=== PATIENT | female | born 1940 | race Caucasian/White ===

== ENCOUNTER 2024-06-23 15:11 | Inpatient (IN) | payer OTHER, SELFPAY ==
[2024-06-23] VITALS (14 sets, daily range): BP systolic 109–178; BP diastolic 58–127; BMI 22.3; BMI 23.1
[2024-06-23 09:11] LABS: ALT (SGPT) 14 U/L (0-35); AST (SGOT) 18 U/L (14-36); Albumin 4.1 g/dl (3.5-5.0); Alkaline Phosphatase 112 U/L (38-126); Blood Urea Nitrogen 36 mg/dl (7-17); Carbon Dioxide 21 mmol/L (22-30); Chloride 104 mmol/L (98-107); Estimated Creatinine Clearance 13 ml/min; Glucose 119 mg/dl (70-99); Potassium 4.2 mmol/L (3.5-5.1); Sodium 139 mmol/L (135-145); Total Bilirubin 0.5 mg/dl (0.2-1.3); Total Protein 7.5 g/dl (6.3-8.2); eGFR 22.81
--- NOTE | 2024-06-23 09:12 | ED.GENMED ---
History of Present Illness
General
Chief Complaint: Rectal Bleeding
Source: patient and family
Exam Limitations: none
Time Seen by Provider: 06/23/24 08:52
History of Present Illness
History of Present Illness:
84-year-old female 1 week of general weakness abdominal pain diarrhea. Started with bloody diarrhea in the last 24 hours. No recent antibiotics no travel history no one else is ill. Appetite has been reasonable. Chronic shortness of breath that
is stable. No fever at home. No urinary symptoms at home.
Past History
Past History
ED Past Medical History: COPD, HTN and Hypercholesterolemia
ED Past Surgical History: Gynecological (Hysterectomy) and Urological (Renal stents)
Social History
Tobacco: Former smoker
Alcohol: None
Drug: None
Personal:
Living: with family
Review of Systems
Review of Systems
All Other Systems: Not applicable
Constitutional: Denies fever
Respiratory: Reports no symptoms (Chronic shortness of breath)
Cardiac: Reports no symptoms
: Reports no symptoms
Phy Exam
Physical Exam
Physical Exam:
GENERAL: Alert and oriented. Very hard of hearing. Generally weak.
EYE: Orbits normal.
NECK: Supple, no significant adenopathy.
ENT: Pharynx without erythema
CARDIAC: Regular rate and rhythm without any obvious murmurs.
LUNGS: Mild tachypnea. Decreased breath sounds diffusely. Oxygen in place. Chronic 5 L nasal cannula
ABDOMEN: Bowel sounds present. No distention. Vertical periumbilical scar. Diffuse tenderness greatest in left upper and left lower quadrants
NEUROLOGICAL: Alert and oriented , grossly non-focal
SKIN: Warm and dry, no rash or lesion, no discoloration, skin intact.
MUSCULOSKELETAL: No edema,no deformity.Good color
PSYCH: Normal and appropriate interaction.
Course
Orders/Labs/Results
Orders:
Orders
06/23/24 08:39
Electrocardiogram (*1) Urgent
Reason for Study: Chest Pain
06/23/24 08:42
EKG- Treatment ONCE
06/23/24 08:43
Complete Blood Count/With Diff Urgent
Comprehensive Metabolic Panel Urgent
Lipase Urgent
Comment: ADD ON
06/23/24 09:00
Cardiac Monitoring- Treatment ONCE
IV Insert/Care/Rem.- Treatment PRN
STOOL [C difficile Antigen & Toxins] Urgent
KAMILAH Source: Feces/Stool
Specimen Description:
Stool Culture Urgent
KAMILAH Source: Feces/Stool
Specimen Description:
0.9% Sodium Chloride 500 ml [Nss] 500 ml IV BOLUS
CXR2 [CR Chest - 2 Views ] Urgent
Comment:
Reason For Exam: Short of breath/abdominal pain
06/23/24 09:02
Add On- LAB Urgent
Tests Added?: lipase
06/23/24 09:12
CT Abd/pel Without Iv Or Oral Urgent
Comment:
Reason For Exam: Abdominal pain/diarrhea/renal disease
06/23/24 10:09
Piperacillin/Tazo 3.375 Gram [Zosyn] 3.375 gram in 50 ml IV NOW
06/23/24 10:38
Lactic Acid Urgent
Blood Culture Q30M
KAMILAH Source: Blood/Venous
Specimen Description:
Blood Culture Q30M
KAMILAH Source: Blood/Venous
Specimen Description:
06/23/24 10:40
Acetaminophen 1000MG/100Ml [Ofirmev] 1,000 mg in 100 ml IV ONCE
Acetaminophen IV Indication:: ED Narcotic Naive Pt-ONCE
06/23/24 11:03
CDIFF [C difficile Antigen & Toxins] Urgent
KAMILAH Source: Feces/Stool
Specimen Description:
Norovirus by PCR Routine
KAMILAH Source: Feces/Stool
Specimen Description:
Stool For WBC Routine
KAMILAH Source: Feces/Stool
Specimen Description:
Yersinia Culture-Stool Routine
KAMILAH Source: Feces/Stool
Specimen Description:
Abnormal Lab Results
06/23/24
08:43
WBC 12.6 H 10^3/uL
(4.8-10.8)
RBC 4.06 L 10^6/uL
(4.20-5.40)
Hgb 11.0 L g/dL
(12.0-16.0)
Hct 36.4 L %
(37.0-47.0)
MCHC 30.2 L g/dL
(33.0-37.0)
MPV 11.9 H fL
(7.4-10.4)
Absolute Neuts (auto) 10.7 H 10^3/uL
(1.4-6.5)
Neutrophils % 84.9 H %
(42.2-75.2)
Lymphocytes % 9.8 L %
(20.5-51.1)
Carbon Dioxide 21 L mmol/L
(22-30)
BUN 36 H mg/dl
(7-17)
Creatinine 2.1 H mg/dL
(0.6-1.0)
Glucose 119 H mg/dl
(70-99)
06/23/24 08:43
06/23/24 08:43
Vital Signs
Initial and Last Documented VS:
Initial Vital Signs
Temp Pulse Resp BP Pulse Ox
99.5 F 100 22 178/127 98
06/23/24 08:27 06/23/24 08:27 06/23/24 08:27 06/23/24 08:27 06/23/24 08:27
Last Documented Vital Signs
Temp Pulse Resp BP Pulse Ox
100.8 F H 74 15 134/61 98
06/23/24 10:15 06/23/24 12:00 06/23/24 12:00 06/23/24 12:00 06/23/24 11:45
MDM/Problems Addressed
Differential Diagnosis Includes:
Abdominal pain colitis like symptoms workup in progress. With renal insufficiency will not give IV contrast.
Colitis by CT scan. Infectious versus inflammatory versus ischemic. Reluctant to do a CT scan with the renal insufficiency and low GFR. Will do a lactic acid. Cover with antibiotics. Referred to hospitalist
*Radiology
Radiology exam reviewed: radiology read reviewed (Severe colitis) and other (Negative chest x-ray)
*Pulse Oximetry
Patient hypoxic: no
*EKG
Interpreted by ED Provider?: Yes
Interpretation: normal
Comparison EKG: no comparison EKG present
Heart Rate: 95
Rate: normal
Rhythm: sinus
[place]: normal axis
Interval: normal interval
QRS Pattern: normal QRS
Ischemia: no ischemia
*Caregivers Non Medical Interpretation
Rate: normal
Interpretation: normal
Heart Rate: 88
Rhythm: sinus
*Critical Care Note
Total Time (30-74mins, 75-104mins- exclusive of procedures): Not Applicable
Data Reviewed
Review of Other/Old Records Reveals: Labs, Records and Testing
ED Attending Note
-
Portions of this chart may have been created with voice recognition software.� Occasional wrong word or��sound alike� substitutions may have occurred due to the inherent limitations of voice recognition software.
Discharge Plan
Departure
Patient Disposition: Admit
Date of Disposition: 06/23/24
Time of Disposition: 10:11
Presentation/result/management discussed w/ accepting MD/DO: Hospitalist
Discharge Problem:
Severe colitis, COPD history
Prescriptions:
No Action
alendronate [Fosamax] 70 mg Tablet
70 mg PO MO
clopidogrel [Plavix] 75 mg Tablet
75 mg PO DAILY
aspirin 81 mg Tablet,Delayed Release (Dr/Ec)
81 mg PO QPM
nifedipine 90 mg tablet extended release 24hr
90 mg PO DAILY
ropinirole 0.5 mg Tablet
0.5 mg PO HSPRN PRN (Reason: rts)
ezetimibe [Zetia] 10 mg Tablet
10 mg PO QPM
metoprolol succinate [Toprol XL] 25 mg Tablet Extended Release 24 Hr
25 mg PO HS
Referrals:
Barb Aguirre MD [Family Provider] -
Interventions
Interventions:
*Risk Screen - Suicide Last Done: 06/23/24 08:27
*General Assessment Last Done: 06/23/24 08:27
*Neglect/Abuse Screening Last Done: 06/23/24 08:27
*ED COVID-19 Vaccine History Last Done: 06/23/24 08:38
GQ-Gksoop-Akybaoudkp Assessment Last Done: 06/23/24 08:30
ED- Cardiac Assessment Last Done: 06/23/24 08:30
ED- Pulmonary Assessment Last Done: 06/23/24 08:30
Discharge Date and Time
Print Language: AMHARIC
[2024-06-23 09:38] LABS: Lipase 71 U/L (23-300)
[2024-06-23] MEDS: NSS 500 IV (10:43)
[2024-06-23] MEDS: OFIRMEV 100 IV (10:43)
[2024-06-23 11:03] LABS: Lactic Acid 0.9 mmol/L (0.7-2.0)
[2024-06-23] MEDS: ZOSYN 50 IV ×2 (11:27→19:15)
[2024-06-23 11:48] LABS: % Basophils 0.3 % (0-2); % Eosinophils 0.5 % (0-6); % Immature Granulocytes 0.2 % (0-0.5); % Lymphocytes 9.8 % (20.5-51.1); % Monocytes 4.3 % (1.7-9.3); % Neutrophils 84.9 % (42.2-75.2); Absolute Eosinophils 0.1 10^3/uL (0-0.7); Absolute Lymphocytes 1.2 10^3/uL (1.2-3.4); Absolute Monocytes 0.5 10^3/uL (0.1-0.6); Absolute Neutrophils 10.7 10^3/uL (1.4-6.5); Hematocrit 36.4 % (37.0-47.0); Mean Corp Hgb Conc. 30.2 g/dL (33.0-37.0); Mean Corpuscular Hgb 27.1 pg (27.0-31.0); Mean Corpuscular Volume 89.7 fL (81.0-99.0); Mean Platelet Volume 11.9 fL (7.4-10.4); Nucleated Red Blood Cells % 0 %; Platelet Count 237 10^3/uL (130-400); Red Blood Cell Count 4.06 10^6/uL (4.20-5.40); Red Cell Dist. Width 14.3 % (11.5-14.5); White Blood Cell Count 12.6 10^3/uL (4.8-10.8)
--- NOTE | 2024-06-23 14:03 | CON.GI ---
Consultation
-
Date/Time Consultation Requested: 06/23/2024
Date/Time Consultation Performed: 06/23
Requesting Provider: Hospitalist
Performing Provider: Faye PRIETO
Reason for Consultation: Colitis
Medical History
Chief Complaint / HPI
Chief Complaint: Abdominal pain/diarrhea
History of Present Illness:
84-year-old female with history of COPD on oxygen, hypertension, rectal prolapse is admitted today with abdominal pain with bloody diarrhea for 1 day. Patient daughter was at bedside . Complaining of left lower quadrant abdominal pain. No pain
radiation. She started having multiple loose stools with blood . No sick contacts or travel history. Denies any nausea or vomiting. No fever or chills.
Past Medical History
Past Medical History: Other (COPD (on 4L NC), HTN, Hypercholesterolemia and Other (Rectal prolapse, Renal artery stenosis, osteoporosis), dyslipidemia, rectal prolapse)
Past Surgical History: Other ((hysterctomy, bladder lift, renal stents))
Social History
Tobacco: Non-Smoker
Alcohol: None
Allergies / Home Medications
Allergy/AdvReac Type Severity Reaction Status Date / Time
No Known Allergies Allergy Verified 06/23/24 08:27
�Medication �Instructions �Recorded
alendronate 70 mg tablet (Fosamax) 70 mg PO MO osteoporosis 09/02/22
aspirin 81 mg tablet,delayed 81 mg PO QPM Blood clot 09/02/22
release prevention/tx
clopidogrel 75 mg tablet (Plavix) 75 mg PO DAILY Blood clot 09/02/22
prevention/tx
ezetimibe 10 mg tablet (Zetia) 10 mg PO QPM High cholesterol 09/02/22
nifedipine 90 mg tablet,extended 90 mg PO DAILY Blood pressure 09/02/22
release 24 hr
ropinirole 0.5 mg tablet 0.5 mg PO HSPRN PRN rts 09/02/22
metoprolol succinate 25 mg 25 mg PO HS 06/23/24
tablet,extended release 24 hr
(Toprol XL)
Review of Systems
Vital Signs
Temp Pulse Resp BP Pulse Ox
100.8 F H 74 15 134/61 98
06/23/24 10:15 06/23/24 12:00 06/23/24 12:00 06/23/24 12:00 06/23/24 11:45
Physical Exam
Exam
General: Well Developed and No Apparent Distress
Cardiac: S1/S2
GI: Soft, Non Distended and Tender (Left lower quadrant tenderness)
Neuro: AO x 3
Results
WBC 12.6 10^3/uL (4.8-10.8) H 06/23/24 08:43
Hgb 11.0 g/dL (12.0-16.0) L 06/23/24 08:43
Hct 36.4 % (37.0-47.0) L 06/23/24 08:43
MCV 89.7 fL (81.0-99.0) 06/23/24 08:43
Plt Count 237 10^3/uL (130-400) 06/23/24 08:43
Absolute Neuts (auto) 10.7 10^3/uL (1.4-6.5) H 06/23/24 08:43
Sodium 139 mmol/L (135-145) 06/23/24 08:43
Potassium 4.2 mmol/L (3.5-5.1) 06/23/24 08:43
Chloride 104 mmol/L (98-107) 06/23/24 08:43
Carbon Dioxide 21 mmol/L (22-30) L 06/23/24 08:43
BUN 36 mg/dl (7-17) H 06/23/24 08:43
Creatinine 2.1 mg/dL (0.6-1.0) H 06/23/24 08:43
Calcium 9.0 mg/dl (8.4-10.2) 06/23/24 08:43
Total Bilirubin 0.5 mg/dl (0.2-1.3) 06/23/24 08:43
AST 18 U/L (14-36) 06/23/24 08:43
ALT 14 U/L (0-35) 06/23/24 08:43
Alkaline Phosphatase 112 U/L (38-126) 06/23/24 08:43
Lipase 71 U/L (23-300) 06/23/24 08:43
Diagnostic Image Results:
Prior GI Procedures:
EGD:
Colonoscopy: Over 10 years back.
Assessment / Plan
-
84-year-old female with history of COPD on oxygen, hypertension, dyslipidemia, large rectal prolapse ( not a surgical candidate as per patient's daughter ) is admitted with left sided abdominal pain/bloody diarrhea. ED labs�WBC 12.6/Hb 11/platelets
237. Lactic acid 0.9. Liver test normal. BUN 36/serum creatinine 2.1
CT abdomen/pelvis without contrast- Moderate to severe colitis of the descending colon, which may be infectious, inflammatory, or ischemic..
-- Abdominal pain/bloody diarrhea/CT showing colitis in the descending colon -etiology infectious versus ischemic versus inflammatory. Last colonoscopy over 10 years back. Had colitis 08/2022-thought to be infectious at that time
plan
Check stool studies for infection
Continue antibiotic started by medical team
Monitor H&H
Hemodynamic stability
Clear liquid diet
Discussed benefits and risk of colonoscopy in the future. Patient/patient daughter would like to hold off on it considering her age/comorbidities.
Total Time Spent with Patient (in minutes): 55
-
-
Thank you for consultation and allowing me to participate in the patient's care. Please call the distribution coordinator GI physician during the after hours with any questions or concerns.
--- NOTE | 2024-06-23 14:32 | HPS.HSE ---
Family Physician
-
Family Physician: Barb Aguirre
Chief Complaint
-
Bloody diarrhea
History of Present Illness
84-year-old female past medical history of COPD on 4 L nasal cannula, hypertension, hyperlipidemia, rectal prolapse, renal artery stenosis, osteoporosis, renal stents now presents for abdominal pain associated with bloody diarrhea. Patient had 1
week of generalized weakness with abdominal pain and diarrhea. Started to become bloody over the last 24 hours. Also complains of left lower quadrant abdominal pain. No sick contacts or travel history. Noted to spike temperature of 100.8
Fahrenheit, respiratory rate 23 upon arrival, pulse 90, blood pressure 134/61. White count 12.6, CORNELIA with creatinine 2.1 from baseline 1.5. LFTs unremarkable. CT abdomen with moderate to severe colitis of descending colon.
Medical History
Past Medical History
Past Medical History: Reports Other (COPD on 4 L baseline, rectal prolapse, coronary artery disease, hypertension, hypercholesterolemia, carotid artery disease)
Past Surgical History: Reports Other (Gynecological (Hysterectomy) and Urological (Renal stents))
Social History
Tobacco: Non-smoker
Alcohol: None
Drug: None
Family History
Family History: Not pertinent
Allergies / Home Medications
Allergies reflects when Allergies were last updated in [facility].
Home Medications with original date entered in [facility]
Allergy/Medication List:
Allergies
Allergy/AdvReac Type Severity Reaction Status Date / Time
No Known Allergies Allergy Verified 06/23/24 08:27
Home Medications
alendronate 70 mg tablet (Fosamax) 70 mg PO MO osteoporosis 09/02/22
aspirin 81 mg tablet,delayed release 81 mg PO QPM Blood clot prevention/tx 09/02/22
clopidogrel 75 mg tablet (Plavix) 75 mg PO DAILY Blood clot prevention/tx 09/02/22
ezetimibe 10 mg tablet (Zetia) 10 mg PO QPM High cholesterol 09/02/22
nifedipine 90 mg tablet,extended release 24 hr 90 mg PO DAILY Blood pressure 09/02/22
ropinirole 0.5 mg tablet 0.5 mg PO HSPRN PRN rts 09/02/22
metoprolol succinate 25 mg tablet,extended release 24 hr (Toprol XL) 25 mg PO HS 06/23/24
Review of Systems
-
History Source: Patient
A 12 point ROS was completed and negative except as noted: Yes
Physical Exam
Vital Signs
Vital Signs
Temp Pulse Resp BP Pulse Ox
100.8 F H 74 15 134/61 98
06/23/24 10:15 06/23/24 12:00 06/23/24 12:00 06/23/24 12:00 06/23/24 11:45
Physical Exam
General: Well Developed, Well Nourished and No Apparent Distress
HEENT: NormoCephalic, Moist mucous membranes and Atraumatic
Respiratory: Clear
Cardiac: S1/S2 and Regular Rhythm; No Murmur or Rub
GI: Soft, Non Distended, Normal Bowel Sounds and Tender (Left lower quadrant); No Organomegaly
Rectal: Deferred by Provider
Musculoskeletal: No Clubbing, No Cyanosis and No Edema
Skin: No Rash
Neuro: Nonfocal/grossly intact
Laboratory Results
-
06/23/24 08:43
06/23/24 08:43
Laboratory Results
Lactic Acid 0.9 mmol/L (0.7-2.0) 06/23/24 10:38
Total Bilirubin 0.5 mg/dl (0.2-1.3) 06/23/24 08:43
AST 18 U/L (14-36) 06/23/24 08:43
ALT 14 U/L (0-35) 06/23/24 08:43
Alkaline Phosphatase 112 U/L (38-126) 06/23/24 08:43
Lipase 71 U/L (23-300) 06/23/24 08:43
Data Reviewed
-
Diagnostic Radiology: Report Reviewed by me
CT Scan: Report Reviewed by me
Lab Data: Labs Reviewed by me
Impression/Plan
-
IMPRESSION:
84-year-old female past medical history of COPD on 4 L nasal cannula, hypertension, hyperlipidemia, rectal prolapse, renal artery stenosis, osteoporosis, renal stents now presents for abdominal pain associated with bloody diarrhea. Found to have
moderate to severe colitis.
PLAN:
Sepsis
#Colitis
� Follow-up stool studies including C. difficile, stool cultures, Yersinia
� Continue Zosyn
� Follow-up cultures including blood
� Okay for clear liquid diet for now
� Monitor hemoglobin, no obvious acute blood loss anemia this time; blood and diarrhea most likely secondary to inflammation
� GI consulted
#CORNELIA on CKD stage IIIb
� Creatinine 1.5 at baseline
� Continue IV fluids
� Monitor with resuscitation
#Coronary disease
#History of carotid disease
� Continue aspirin and Plavix for now
� Can hold Plavix if hemoglobin continues to drop or recurrent bloody bowel movements
� No active chest pain
� Continue Toprol
#Hypertension
� Hold nifedipine
� Can continue Toprol, low threshold to stop
#Anemia of chronic disease
� Continue to monitor hemoglobin for possible acute blood loss anemia
#COPD/ chronic hypoxic respiratory failure
-On 4 L of oxygen at baseline
#Hyperlipidemia
� Hold Zetia
#Restless legs
-Continue ropinirole, gabapentin
#Osteoporosis
-Continue alendronate
#Rectal plus/
� Nonsurgical candidate as per history
Full code
DVT ppx
-scd
[2024-06-23] MEDS: ASPIR LOW (ENTERIC COATED) 81 MG PO (19:13)
[2024-06-23] MEDS: PLAVIX PO (19:13)
[2024-06-23] MEDS: LR 1000 IV (19:33)
[2024-06-23] MEDS: NSS (PRESERVATIVE FREE) 10 ML IV (20:36)
[2024-06-23] MEDS: PROTONIX IV 40 MG IV (20:36)
[2024-06-23] MEDS: TOPROL XL 25 MG PO (20:37)
--- NOTE | 2024-06-23 21:15 | PTCARENOTE ---
ax3 very [place]- ambulates with walker at home- pt and daughter refuse bed alarm despite fall risk and assure staff that she will ring for all assistance- sinus pac's afebrile bp wnl- smear of red blood tinged bm not enough for sample- plan of care
reviewed-
[2024-06-23 23:21] LABS: Hematocrit 31.9 % (37.0-47.0); Hemoglobin 9.9 g/dL (12.0-16.0)
[2024-06-24] VITALS (8 sets, daily range): BP systolic 140–174; BP diastolic 50–86; PULSE 72; O2SAT 98
[2024-06-24] MEDS: ZOSYN 50 IV ×5 (01:10→23:31)
[2024-06-24 06:05] LABS: Hematocrit 27.4 % (37.0-47.0); Hemoglobin 8.4 g/dL (12.0-16.0); Mean Corp Hgb Conc. 30.7 g/dL (33.0-37.0); Mean Corpuscular Hgb 27.3 pg (27.0-31.0); Mean Platelet Volume 11.2 fL (7.4-10.4); Platelet Count 152 10^3/uL (130-400); Red Blood Cell Count 3.08 10^6/uL (4.20-5.40); Red Cell Dist. Width 14.1 % (11.5-14.5); White Blood Cell Count 8.4 10^3/uL (4.8-10.8)
[2024-06-24 06:37] LABS: ALT (SGPT) 11 U/L (0-35); AST (SGOT) 19 U/L (14-36); Albumin 3.1 g/dl (3.5-5.0); Alkaline Phosphatase 89 U/L (38-126); Blood Urea Nitrogen 27 mg/dl (7-17); Calcium 8.4 mg/dl (8.4-10.2); Carbon Dioxide 24 mmol/L (22-30); Chloride 107 mmol/L (98-107); Estimated Creatinine Clearance 13 ml/min; Glucose 91 mg/dl (70-99); Magnesium 1.9 mg/dl (1.6-2.3); Potassium 3.9 mmol/L (3.5-5.1); Sodium 137 mmol/L (135-145); Total Bilirubin 0.8 mg/dl (0.2-1.3); Total Protein 5.8 g/dl (6.3-8.2); eGFR 24.18
[2024-06-24] MEDS: PLAVIX 75 MG PO (08:01)
[2024-06-24] MEDS: PROTONIX IV 40 MG IV ×2 (08:01→19:48)
[2024-06-24] MEDS: NSS (PRESERVATIVE FREE) 10 ML IV ×2 (08:01→19:48)
[2024-06-24] MEDS: LR 1000 IV ×2 (08:07→22:22)
--- NOTE | 2024-06-24 12:21 | W.PN.GI.CBS2 ---
Today's Communication / Plan
-
Continue clear liquid diet
Continue antibiotics
Follow-up stool studies
Assessment / Plan
-
84-year-old female with history of COPD on oxygen, hypertension, dyslipidemia, large rectal prolapse ( not a surgical candidate as per patient's daughter ) is admitted with left sided abdominal pain/bloody diarrhea. ED labs�WBC 12.6/Hb 11/platelets
237. Lactic acid 0.9. Liver test normal. BUN 36/serum creatinine 2.1
CT abdomen/pelvis without contrast- Moderate to severe colitis of the descending colon, which may be infectious, inflammatory, or ischemic..
-- Abdominal pain/bloody diarrhea/CT showing colitis in the descending colon -etiology infectious versus ischemic versus inflammatory. Last colonoscopy over 10 years back. Had colitis 08/2022-thought to be infectious at that time
-- Coronary artery disease/carotid artery disease on Plavix
plan
No further diarrhea as per nursing. Stool for C. difficile pending
Continue antibiotic started by medical team
Monitor H&H. If bleeding persists hold off on Plavix
Hemodynamic stability
Clear liquid diet for now
Discussed benefits and risk of colonoscopy in the future. Patient/patient daughter would like to hold off on it considering her age/comorbidities.
Total Time Spent with Patient (in minutes): 35
Subjective
Subjective
Date of Service: June 24, 2024
Patient continues to have abdominal pain. As per nursing no diarrhea. Smears of stool.
Objective
Data Reviewed
Laboratory Data:
Laboratory Results
06/24/24 05:53
06/24/24 05:53
Laboratory Results
Magnesium 1.9 mg/dl (1.6-2.3) 06/24/24 05:53
Total Bilirubin 0.8 mg/dl (0.2-1.3) 06/24/24 05:53
AST 19 U/L (14-36) 06/24/24 05:53
ALT 11 U/L (0-35) 06/24/24 05:53
Alkaline Phosphatase 89 U/L (38-126) 06/24/24 05:53
Lipase 71 U/L (23-300) 06/23/24 08:43
Vital Signs and I&O:
Vital Signs
Temp Pulse Resp BP Pulse Ox
98.2 F 76 24 155/64 98
06/24/24 11:06 06/24/24 11:06 06/24/24 11:06 06/24/24 11:06 06/24/24 11:06
I&O
06/23/24 06/24/24 06/25/24
06:59 06:59 06:59
Intake Total 1140 / 1140
Balance 1140 / 1140
Physical Exam
Physical Exam
GI: Soft, Non Distended and Tender (Left lower quadrant tenderness)
--- NOTE | 2024-06-24 12:43 | W.PN.HOSP.TC ---
Today's Communication/Plan
-
CLD
abx
F/u cultures
restart nifedipine
Assessment / Plan
Assessment / Plan
Physical Exam
General: Well Developed, Well Nourished and No Apparent Distress
HEENT: NormoCephalic, Moist mucous membranes and Atraumatic
Respiratory: Clear
Cardiac: S1/S2 and Regular Rhythm; No Murmur or Rub
GI: Soft, Non Distended, Normal Bowel Sounds and Tender (Left lower quadrant); No Organomegaly
Rectal: Deferred by Provider
Musculoskeletal: No Clubbing, No Cyanosis and No Edema
Skin: No Rash
Neuro: Nonfocal/grossly intact
84-year-old female past medical history of COPD on 4 L nasal cannula, hypertension, hyperlipidemia, rectal prolapse, renal artery stenosis, osteoporosis, renal stents now presents for abdominal pain associated with bloody diarrhea. Found to have
moderate to severe colitis.
PLAN:
Sepsis
#Colitis
� Follow-up stool studies including C. difficile, stool cultures, Yersinia
� Continue Zosyn
� Follow-up cultures including blood
� Okay for clear liquid diet for now
� Monitor hemoglobin, no obvious acute blood loss anemia this time; blood and diarrhea most likely secondary to inflammation
� GI consulted
#CORNELIA on CKD stage IIIb
� Creatinine 1.5 at baseline
� Continue IV fluids
� Monitor with resuscitation
#Coronary disease
#History of carotid disease
� Continue aspirin and Plavix for now
� Can hold Plavix if hemoglobin continues to drop
� No active chest pain
� Continue Toprol
#Hypertension
� Can resume nifedipine
� Can continue Toprol
#Anemia of chronic disease
� Continue to monitor hemoglobin for possible acute blood loss anemia
#COPD/ chronic hypoxic respiratory failure
-On 4 L of oxygen at baseline
#Hyperlipidemia
� Hold Zetia
#Restless legs
-Continue ropinirole, gabapentin
#Osteoporosis
-Continue alendronate
#Rectal plus/
� Nonsurgical candidate as per history
Full code
DVT ppx
-scd
Anticipated Discharge: 24 - 48 hours
Subjective/Interval History
-
Date of Service: June 24, 2024
slight improvement in tenderness, still with diarrhea with soome blood
Objective Data
-
Labs:
Laboratory Results
06/24/24 06/24/24 06/24/24
05:53 05:53 05:53
WBC 8.4
Hgb Cancelled 8.4 L
Hct Cancelled 27.4 L
Plt Count 152 D
Sodium 137
Potassium 3.9
Chloride 107
Carbon Dioxide 24
BUN 27 H
Creatinine 2.0 H
Glucose 91
Calcium 8.4
Total Bilirubin 0.8
AST 19
ALT 11
Alkaline Phosphatase 89
Vital Signs:
Vital Signs
Temp Pulse Resp BP Pulse Ox
98.2 F 76 24 155/64 98
06/24/24 11:06 06/24/24 11:06 06/24/24 11:06 06/24/24 11:06 06/24/24 11:06
I&O
06/23/24 06/24/24 06/25/24
06:59 06:59 06:59
Intake Total 1140 / 1140
Balance 1140 / 1140
Review of Systems
-
History Source: Patient
All other systems: Not reviewed unless documented
Data Reviewed
-
Diagnostic Radiology: Report Reviewed by me
CT Scan: Report Reviewed by me
Labs: Labs Reviewed by me
--- NOTE | 2024-06-24 15:17 | CM ---
Addendum entered by Lucia Hedrick 06/24/24 15:48:
Call back from dtr who confirmed PLOF
O2 provider unknown- possibly [facility], unknown if set up goes to 5L or 10L
[facility] is provider choice and family home to support pt day/night
Original Note:
CM attempted bedside meeting with pt and sleeping soundly
Background info provided by PT
Pt resides with her dtr and family in a 2SH with 1STE, 1st floor set up
Pt is indep and ambulatory with use of a WW
13 steps to 2nd floor shower
Pt si on 5L O2 baseline, provider name cherri
PCP- Barb Aguirre
Rx- [facility] [place] recs of VN if family support available
VM left for dtr/Coco to confirm PLOF, confirm O2 provider name and to discuss dc planning
Awaiting call back
Discharge Disposition- anticipate home with VN and family
[2024-06-24] MEDS: PROCARDIA XL (EXTENDED RELEASE) 90 MG PO (15:33)
[2024-06-24] MEDS: ASPIR LOW (ENTERIC COATED) 81 MG PO (15:33)
[2024-06-24] MEDS: TOPROL XL 25 MG PO (22:27)
[2024-06-25 03:18] VITALS: BP 156/69
[2024-06-25] MEDS: ZOSYN 50 IV ×4 (05:06→23:00)
--- NOTE | 2024-06-25 06:12 | PTCARENOTE ---
The amount of urine voided has tapered off, with increased urgency and frequency as the night progressed. Bladder scanned for 320ml after pt had inc episode. Pt states ' its bc Im getting the bag of fluids, its too much fluid, I have to pee all the
time'. Will continue to monitor.
--- NOTE | 2024-06-25 07:31 | W.PN.HOSP.TC ---
Addendum entered and electronically signed by Krishna Ortega MD 06/25/24 16:16:
C. difficile toxin negative, antigen positive�will start oral Vanco 125 every 6 hours in setting of severe colitis and continued diarrhea
Original Note:
Today's Communication/Plan
-
CLD
Renal US
IVF
Monitor creatinine
Assessment / Plan
Assessment / Plan
Physical Exam
General: Well Developed, Well Nourished and No Apparent Distress
HEENT: NormoCephalic, Moist mucous membranes and Atraumatic
Respiratory: Clear
Cardiac: S1/S2 and Regular Rhythm; No Murmur or Rub
GI: Soft, Non Distended, Normal Bowel Sounds and Tender (Left lower quadrant); No Organomegaly
Rectal: Deferred by Provider
Musculoskeletal: No Clubbing, No Cyanosis and No Edema
Skin: No Rash
Neuro: Nonfocal/grossly intact
84-year-old female past medical history of COPD on 4 L nasal cannula, hypertension, hyperlipidemia, rectal prolapse, renal artery stenosis, osteoporosis, renal stents now presents for abdominal pain associated with bloody diarrhea. Found to have
moderate to severe colitis.
PLAN:
Sepsis
#Colitis
� Follow-up stool studies including C. difficile, stool cultures, Yersinia
� Continue Zosyn
� Follow-up cultures including blood - ngtd
� Continue clear liquid diet for now
� Monitor hemoglobin, no obvious acute blood loss anemia this time; blood and diarrhea most likely secondary to inflammation
� GI consulted
#CORNELIA on CKD stage IIIb
�suspect prerenal secondary to diarrhea versus septic ATN
� Creatinine 1.5 at baseline
� Continue IV fluids
� Monitor with resuscitation
�Follow-up renal ultrasound
#Coronary disease
#History of carotid disease
� Continue aspirin and Plavix for now
� Can hold Plavix if hemoglobin continues to drop
� No active chest pain
� Continue Toprol
#Hypertension
� Can resume nifedipine
� Can continue Toprol
#Anemia of chronic disease
� Continue to monitor hemoglobin for possible acute blood loss anemia
#COPD/ chronic hypoxic respiratory failure
-On 4 L of oxygen at baseline
#Hyperlipidemia
� Hold Zetia
#Restless legs
-Continue ropinirole, gabapentin
#Osteoporosis
-Continue alendronate
#Rectal plus/
� Nonsurgical candidate as per history
Full code
DVT ppx
-scd - blood in stool
Anticipated Discharge: 24 - 48 hours
Subjective/Interval History
-
Date of Service: June 25, 2024
Still having diarrhea, no blood
Objective Data
-
Labs:
Laboratory Results
06/25/24
07:24
WBC Pending
Hgb Pending
Hct Pending
Plt Count Pending
Sodium Pending
Potassium Pending
Chloride Pending
Carbon Dioxide Pending
BUN Pending
Creatinine Pending
Glucose Pending
Calcium Pending
Total Bilirubin Pending
AST Pending
ALT Pending
Alkaline Phosphatase Pending
Vital Signs:
Vital Signs
Temp Pulse Resp BP Pulse Ox
97.7 F 77 22 156/69 95
06/25/24 03:18 06/25/24 03:18 06/25/24 03:18 06/25/24 03:18 06/25/24 03:18
I&O
06/24/24 06/25/24 06/26/24
06:59 06:59 06:59
Intake Total 1140 / 1140 2009
Balance 1140 / 1140 2009
Review of Systems
-
History Source: Patient
All other systems: Not reviewed unless documented
Data Reviewed
-
Diagnostic Radiology: Report Reviewed by me
CT Scan: Report Reviewed by me
Labs: Labs Reviewed by me
[2024-06-25 07:40] LABS: Hemoglobin 8.7 g/dL (12.0-16.0); Mean Corp Hgb Conc. 31.1 g/dL (33.0-37.0); Mean Corpuscular Hgb 27.4 pg (27.0-31.0); Mean Corpuscular Volume 88.1 fL (81.0-99.0); Mean Platelet Volume 11.8 fL (7.4-10.4); Platelet Count 170 10^3/uL (130-400); Red Blood Cell Count 3.18 10^6/uL (4.20-5.40); White Blood Cell Count 7.4 10^3/uL (4.8-10.8)
[2024-06-25 07:45] VITALS: BP 186/68
[2024-06-25 07:55] LABS: ALT (SGPT) 12 U/L (0-35); AST (SGOT) 24 U/L (14-36); Albumin 3.2 g/dl (3.5-5.0); Alkaline Phosphatase 87 U/L (38-126); Blood Urea Nitrogen 19 mg/dl (7-17); Calcium 8.6 mg/dl (8.4-10.2); Carbon Dioxide 26 mmol/L (22-30); Chloride 107 mmol/L (98-107); Estimated Creatinine Clearance 13 ml/min; Glucose 104 mg/dl (70-99); Potassium 3.6 mmol/L (3.5-5.1); Sodium 140 mmol/L (135-145); Total Bilirubin 0.5 mg/dl (0.2-1.3); Total Protein 6.1 g/dl (6.3-8.2); eGFR 25.72
[2024-06-25] MEDS: PROTONIX IV 40 MG IV ×2 (09:25→21:21)
[2024-06-25] MEDS: NSS (PRESERVATIVE FREE) 10 ML IV ×2 (09:25→21:21)
[2024-06-25] MEDS: PROCARDIA XL (EXTENDED RELEASE) 90 MG PO (09:25)
[2024-06-25] MEDS: PLAVIX 75 MG PO (09:25)
[2024-06-25 11:32] VITALS: BP 166/55
[2024-06-25] MEDS: LR 1000 IV (12:50)
[2024-06-25 15:32] VITALS: BP 152/56
--- NOTE | 2024-06-25 16:05 | W.PN.GI.CBS2 ---
Today's Communication / Plan
-
Continue clear liquid diet
Will add vancomycin PO
Assessment / Plan
-
84-year-old female with history of COPD on oxygen, hypertension, dyslipidemia, large rectal prolapse ( not a surgical candidate as per patient's daughter ) is admitted with left sided abdominal pain/bloody diarrhea. ED labs�WBC 12.6/Hb 11/platelets
237. Lactic acid 0.9. Liver test normal. BUN 36/serum creatinine 2.1
CT abdomen/pelvis without contrast- Moderate to severe colitis of the descending colon, which may be infectious, inflammatory, or ischemic..
-- Abdominal pain/bloody diarrhea/CT showing colitis in the descending colon -etiology infectious versus ischemic versus inflammatory. Last colonoscopy over 10 years back. Had colitis 08/2022-thought to be infectious at that time
-- Coronary artery disease/carotid artery disease on Plavix
plan
Stool C. difficile antigen positive. But toxin negative. Will Discuss with medical team about adding vancomycin as patient continues to have diarrhea
Follow-up stool culture
Patient is currently getting Zosyn
Monitor H&H. If bleeding persists hold off on Plavix
Hemodynamic stability
Clear liquid diet for now patient still complains of abdominal pain
Discussed benefits and risk of colonoscopy in the future. Patient/patient daughter would like to hold off on it considering her age/comorbidities.
Total Time Spent with Patient (in minutes): 35
Subjective
Subjective
Date of Service: June 25, 2024
Continues to have diarrhea. As per nursing no blood. Complains of abdominal pain but it is better
Objective
Data Reviewed
Laboratory Data:
Laboratory Results
06/25/24 07:24
06/25/24 07:24
Laboratory Results
Magnesium 1.9 mg/dl (1.6-2.3) 06/24/24 05:53
Total Bilirubin 0.5 mg/dl (0.2-1.3) 06/25/24 07:24
AST 24 U/L (14-36) 06/25/24 07:24
ALT 12 U/L (0-35) 06/25/24 07:24
Alkaline Phosphatase 87 U/L (38-126) 06/25/24 07:24
Lipase 71 U/L (23-300) 06/23/24 08:43
Vital Signs and I&O:
Vital Signs
Temp Pulse Resp BP Pulse Ox
97.6 F 82 20 152/56 96
06/25/24 15:32 06/25/24 15:32 06/25/24 15:32 06/25/24 15:32 06/25/24 15:32
I&O
06/24/24 06/25/24 06/26/24
06:59 06:59 06:59
Intake Total 1140 / 1140 2009
Balance 1140 / 1140 2009
Physical Exam
Physical Exam
GI: Soft and Tender (Left lower quadrant tenderness)
[2024-06-25] MEDS: ASPIR LOW (ENTERIC COATED) 81 MG PO (18:14)
[2024-06-25] MEDS: FIRVANQ 125 MG PO ×2 (18:14→23:00)
[2024-06-25 19:15] VITALS: BP 123/68
[2024-06-25] MEDS: TOPROL XL 25 MG PO (21:20)
[2024-06-25] MEDS: REQUIP 0.5 MG PO (23:01)
[2024-06-25 23:15] VITALS: BP 166/79
[2024-06-26 03:30] VITALS: BP 179/76
[2024-06-26] MEDS: LR 1000 IV (04:44)
[2024-06-26] MEDS: FIRVANQ 125 MG PO ×4 (05:00→23:45)
[2024-06-26] MEDS: ZOSYN 50 IV ×4 (05:00→23:45)
[2024-06-26 07:45] VITALS: BP 120/72
[2024-06-26 08:11] LABS: Hemoglobin 8.8 g/dL (12.0-16.0); Mean Corp Hgb Conc. 31.4 g/dL (33.0-37.0); Mean Corpuscular Hgb 27.7 pg (27.0-31.0); Mean Corpuscular Volume 88.1 fL (81.0-99.0); Mean Platelet Volume 11.9 fL (7.4-10.4); Platelet Count 191 10^3/uL (130-400); Red Blood Cell Count 3.18 10^6/uL (4.20-5.40); Red Cell Dist. Width 13.9 % (11.5-14.5); White Blood Cell Count 6.9 10^3/uL (4.8-10.8)
[2024-06-26 08:55] LABS: Blood Urea Nitrogen 11 mg/dl (7-17); Calcium 8.3 mg/dl (8.4-10.2); Carbon Dioxide 26 mmol/L (22-30); Chloride 105 mmol/L (98-107); Estimated Creatinine Clearance 16 ml/min; Glucose 91 mg/dl (70-99); Potassium 3.3 mmol/L (3.5-5.1); Sodium 138 mmol/L (135-145); eGFR 31.61
[2024-06-26] MEDS: FOSAMAX 70 MG PO (09:15)
[2024-06-26] MEDS: PROCARDIA XL (EXTENDED RELEASE) 90 MG PO (10:49)
[2024-06-26] MEDS: PROTONIX IV 40 MG IV ×2 (10:50→20:46)
[2024-06-26] MEDS: NSS (PRESERVATIVE FREE) 10 ML IV ×2 (10:50→20:47)
[2024-06-26] MEDS: PLAVIX 75 MG PO (10:50)
[2024-06-26 11:59] VITALS: BP 159/64
--- NOTE | 2024-06-26 13:12 | W.PN.HOSP.TC ---
Today's Communication/Plan
-
see A/P
Assessment / Plan
Assessment / Plan
84-year-old female past medical history of COPD on 4L nasal cannula, hypertension, hyperlipidemia, rectal prolapse, renal artery stenosis, osteoporosis, renal stents; p/w abdominal pain associated with bloody diarrhea. Found to have moderate to
severe colitis.
A/P:
# Sepsis POA 2/2 colitis
stool culture negative, Norovirus negative
C. difficile antigen positive/toxin negative.
Continue Zosyn
Added PO vancomycin for C diff coverage
advance clear liquid diet to full liquid
Monitor hemoglobin, no obvious acute blood loss anemia this time; blood and diarrhea most likely secondary to inflammation
GI on board
# CORNELIA on CKD stage IIIb
Suspect prerenal secondary to diarrhea versus septic ATN
Creatinine 2.1 to 1.6 which is at baseline
Observe off additional IV fluid
renal US unrevealing: mild bilateral renal atrophy without hydronephrosis. Bilateral renal simple cysts.
# Coronary disease
# History of carotid disease
Continue aspirin and Plavix for now
No active chest pain
Continue Toprol
# Hypertension
resumed nifedipine
continue Toprol
# Anemia of chronic disease
Continue to monitor hemoglobin for possible acute blood loss anemia
# COPD with chronic hypoxic respiratory failure on 4 L of oxygen at baseline
# Hyperlipidemia
Hold Zetia
# Restless legs
Continue ropinirole, gabapentin
# Osteoporosis
Continue alendronate
Full code
DVT ppx: SCD 2/2 blood in stool
DW RN
Anticipated Discharge: > 48 hours
Subjective/Interval History
-
Date of Service: June 26, 2024
Objective Data
-
Labs:
Laboratory Results
06/26/24
07:43
WBC 6.9
Hgb 8.8 L
Hct 28.0 L
Plt Count 191
Sodium 138
Potassium 3.3 L
Chloride 105
Carbon Dioxide 26
BUN 11
Creatinine 1.6 H
Glucose 91
Calcium 8.3 L
Vital Signs:
Vital Signs
Temp Pulse Resp BP Pulse Ox
36.6 C 70 16 159/64 94
06/26/24 11:59 06/26/24 11:59 06/26/24 11:59 06/26/24 11:59 06/26/24 11:59
I&O
06/25/24 06/26/24 06/27/24
06:59 06:59 06:59
Intake Total 2009 2840 / 2840 50 / 50
Balance 2009 2840 / 2840 50 / 50
Review of Systems
-
History Source: Patient
Abdomen/GI: Reports Diarrhea
Physical Exam
-
General: Well Developed, Well Nourished, Comfortable, Respiratory Distress (chronic) and Conversant
HEENT: Normocephalic, Atraumatic, Nose Appears Normal, Ears Appear Normal and Oxygen (chronically on 5L NC)
Respiratory: Clear to Auscultation and Non Labored Respirations; Negative Accessory Resp Muscle Use
Cardiac: Regular Rhythm and S1/S2
GI: Soft, Nontender, Nondistended and Normal Bowel Sounds
Skin: Warm and Dry
Neuro: Awake, Alert and Oriented
Psych: Calm and Intact Judgement/Insight
Data Reviewed
-
Labs: Labs Reviewed by me
--- NOTE | 2024-06-26 15:07 | W.PN.GI.CBS2 ---
Today's Communication / Plan
-
Continue PO vanco, IV zosyn
Agree with advancing to full liquids
Slowly improving
Assessment / Plan
-
84-year-old female with history of COPD on oxygen, hypertension, dyslipidemia, large rectal prolapse ( not a surgical candidate as per patient's daughter ) is admitted with left sided abdominal pain/bloody diarrhea. ED labs�WBC 12.6/Hb 11/platelets
237. Lactic acid 0.9. Liver test normal. BUN 36/serum creatinine 2.1
CT abdomen/pelvis without contrast- Moderate to severe colitis of the descending colon, which may be infectious, inflammatory, or ischemic..
-- Abdominal pain/bloody diarrhea/CT showing colitis in the descending colon -etiology infectious versus ischemic versus inflammatory. Last colonoscopy over 10 years back. Had colitis 08/2022-thought to be infectious at that time
-- Coronary artery disease/carotid artery disease on Plavix
Subjective
Subjective
Date of Service: June 26, 2024
Abd pain improved somewhat. Still having diarrhea
Objective
Data Reviewed
Laboratory Data:
Laboratory Results
06/26/24 07:43
06/26/24 07:43
Laboratory Results
Magnesium 1.9 mg/dl (1.6-2.3) 06/24/24 05:53
Total Bilirubin 0.5 mg/dl (0.2-1.3) 06/25/24 07:24
AST 24 U/L (14-36) 06/25/24 07:24
ALT 12 U/L (0-35) 06/25/24 07:24
Alkaline Phosphatase 87 U/L (38-126) 06/25/24 07:24
Lipase 71 U/L (23-300) 06/23/24 08:43
Vital Signs and I&O:
Vital Signs
Temp Pulse Resp BP Pulse Ox
98 F 70 16 159/64 94
06/26/24 11:59 06/26/24 11:59 06/26/24 11:59 06/26/24 11:59 06/26/24 11:59
I&O
06/25/24 06/26/24 06/27/24
06:59 06:59 06:59
Intake Total 2009 2840 / 2840 50 / 50
Balance 2009 2840 / 2840 50 / 50
Physical Exam
Physical Exam
GI: Soft, Non Distended and Tender
[2024-06-26 15:22] VITALS: BP 177/81
[2024-06-26] MEDS: ASPIR LOW (ENTERIC COATED) 81 MG PO (18:00)
[2024-06-26] MEDS: LR IV (18:03)
[2024-06-26 19:09] VITALS: BP 188/88
[2024-06-26] MEDS: REQUIP 0.5 MG PO (20:52)
[2024-06-26] MEDS: TOPROL XL 25 MG PO (21:05)
[2024-06-26 23:41] VITALS: BP 159/55
[2024-06-27] VITALS (9 sets, daily range): BP systolic 118–184; BP diastolic 53–90; PULSE 85–88; O2SAT 99
[2024-06-27] MEDS: ZOSYN 50 IV ×4 (05:41→23:00)
[2024-06-27] MEDS: FIRVANQ 125 MG PO ×4 (05:41→23:00)
[2024-06-27 08:15] LABS: Hematocrit 28.7 % (37.0-47.0); Hemoglobin 8.9 g/dL (12.0-16.0); Mean Corpuscular Hgb 27.2 pg (27.0-31.0); Mean Corpuscular Volume 87.8 fL (81.0-99.0); Mean Platelet Volume 11.7 fL (7.4-10.4); Platelet Count 188 10^3/uL (130-400); Red Blood Cell Count 3.27 10^6/uL (4.20-5.40); Red Cell Dist. Width 13.8 % (11.5-14.5); White Blood Cell Count 5.1 10^3/uL (4.8-10.8)
[2024-06-27] MEDS: PLAVIX 75 MG PO (08:52)
[2024-06-27] MEDS: NSS (PRESERVATIVE FREE) 10 ML IV ×2 (08:52→20:17)
[2024-06-27] MEDS: PROCARDIA XL (EXTENDED RELEASE) 90 MG PO (08:52)
[2024-06-27] MEDS: PROTONIX IV 40 MG IV ×2 (08:53→20:17)
[2024-06-27 09:14] LABS: Blood Urea Nitrogen 9 mg/dl (7-17); Calcium 8.4 mg/dl (8.4-10.2); Carbon Dioxide 28 mmol/L (22-30); Chloride 102 mmol/L (98-107); Estimated Creatinine Clearance 16 ml/min; Glucose 89 mg/dl (70-99); Potassium 3.2 mmol/L (3.5-5.1); Sodium 138 mmol/L (135-145); eGFR 31.61
--- NOTE | 2024-06-27 11:27 | W.PN.HOSP.TC ---
Today's Communication/Plan
-
see A/P
Assessment / Plan
Assessment / Plan
84-year-old female past medical history of COPD on 4L nasal cannula, hypertension, hyperlipidemia, rectal prolapse, renal artery stenosis, osteoporosis, renal stents; p/w abdominal pain associated with bloody diarrhea. Found to have moderate to
severe colitis.
A/P:
# Sepsis POA 2/2 colitis
stool culture negative, Norovirus negative
C. difficile antigen positive/toxin negative.
Continue Zosyn
Added PO vancomycin for C diff coverage
full liquid to low residue diet
Monitor hemoglobin, no obvious acute blood loss anemia this time; blood and diarrhea most likely secondary to inflammation
GI on board
# CORNELIA on CKD stage IIIb
Suspect prerenal secondary to diarrhea versus septic ATN
Creatinine 2.1 to 1.6 which is at baseline
off additional IV fluid
renal US unrevealing: mild bilateral renal atrophy without hydronephrosis. Bilateral renal simple cysts.
# Coronary disease
# History of carotid disease
Continue aspirin and Plavix for now
No active chest pain
Continue Toprol
# Hypertension
resumed nifedipine
continue Toprol
# Anemia of chronic disease
Continue to monitor hemoglobin for possible acute blood loss anemia
# COPD with chronic hypoxic respiratory failure on 4 L of oxygen at baseline
# Hyperlipidemia
Hold Zetia
# Restless legs
Continue ropinirole, gabapentin
# Osteoporosis
Continue alendronate
Full code
DVT ppx: SCD 2/2 blood in stool
Dispo: home PT
DW RN
Anticipated Discharge: 24 - 48 hours
Subjective/Interval History
-
Date of Service: June 27, 2024
Objective Data
-
Labs:
Laboratory Results
06/27/24
07:39
WBC 5.1
Hgb 8.9 L
Hct 28.7 L
Plt Count 188
Sodium 138
Potassium 3.2 L
Chloride 102
Carbon Dioxide 28
BUN 9
Creatinine 1.6 H
Glucose 89
Calcium 8.4
Vital Signs:
Vital Signs
Temp Pulse Resp BP Pulse Ox
36.7 C 88 18 167/81 99
06/27/24 07:00 06/27/24 08:52 06/27/24 07:00 06/27/24 08:52 06/27/24 07:00
I&O
06/26/24 06/27/24 06/28/24
06:59 06:59 06:59
Intake Total 2840 / 2840 270 / 270
Balance 2840 / 2840 270 / 270
Review of Systems
-
History Source: Patient
Abdomen/GI: Reports Diarrhea
Physical Exam
-
General: Well Developed, Well Nourished, Comfortable, Respiratory Distress (chronic) and Conversant
HEENT: Normocephalic, Atraumatic, Nose Appears Normal, Ears Appear Normal and Oxygen (chronically on 5L NC)
Respiratory: Clear to Auscultation and Non Labored Respirations; Negative Accessory Resp Muscle Use
Cardiac: Regular Rhythm and S1/S2
GI: Soft, Nontender, Nondistended and Normal Bowel Sounds
Skin: Warm and Dry
Neuro: Awake, Alert and Oriented
Psych: Calm and Intact Judgement/Insight
Data Reviewed
-
Labs: Labs Reviewed by me
[2024-06-27] MEDS: NON-FORMULARY ITEM 1 UNIT INH (11:37)
[2024-06-27] MEDS: KCL 270 MEQ IV (12:00)
[2024-06-27 12:04] LABS: Magnesium 1.7 mg/dl (1.6-2.3)
--- NOTE | 2024-06-27 13:46 | W.PN.GI.CBS2 ---
Today's Communication / Plan
-
Tolerating diet
Cont PO vanco for ag positive toxin negative c diff. Would complete 10 day course
Will sign off. Please call back if needed
Assessment / Plan
-
84-year-old female with history of COPD on oxygen, hypertension, dyslipidemia, large rectal prolapse ( not a surgical candidate as per patient's daughter ) is admitted with left sided abdominal pain/bloody diarrhea. ED labs�WBC 12.6/Hb 11/platelets
237. Lactic acid 0.9. Liver test normal. BUN 36/serum creatinine 2.1
CT abdomen/pelvis without contrast- Moderate to severe colitis of the descending colon, which may be infectious, inflammatory, or ischemic..
-- Abdominal pain/bloody diarrhea/CT showing colitis in the descending colon -etiology infectious versus ischemic versus inflammatory. Last colonoscopy over 10 years back. Had colitis 08/2022-thought to be infectious at that time
-- Coronary artery disease/carotid artery disease on Plavix
Subjective
Subjective
Date of Service: June 27, 2024
Tolerating low residue diet. Abd pain resolved
Objective
Data Reviewed
Laboratory Data:
Laboratory Results
06/27/24 07:39
06/27/24 07:39
Laboratory Results
Magnesium 1.7 mg/dl (1.6-2.3) 06/27/24 07:39
Total Bilirubin 0.5 mg/dl (0.2-1.3) 06/25/24 07:24
AST 24 U/L (14-36) 06/25/24 07:24
ALT 12 U/L (0-35) 06/25/24 07:24
Alkaline Phosphatase 87 U/L (38-126) 06/25/24 07:24
Lipase 71 U/L (23-300) 06/23/24 08:43
Vital Signs and I&O:
Vital Signs
Temp Pulse Resp BP Pulse Ox
98.0 F 84 16 118/53 98
03/05/25 11:00 06/27/24 11:39 06/27/24 11:39 06/27/24 11:00 06/27/24 11:00
I&O
06/26/24 06/27/24 06/28/24
06:59 06:59 06:59
Intake Total 2840 / 2840 270 / 270
Balance 2840 / 2840 270 / 270
Physical Exam
Physical Exam
GI: Soft, Non Distended and Non Tender
--- NOTE | 2024-06-27 15:11 | CM ---
Reviewed PT notes, patient not quite at baseline. May need SNF. Will need to reach out to family to discuss.
Plan: Case management will continue to follow and assist with discharge planning. Home vrs, SNF. Will discuss with patient and family.
[2024-06-27] MEDS: ASPIR LOW (ENTERIC COATED) 81 MG PO (17:29)
[2024-06-27] MEDS: TOPROL XL 25 MG PO (21:16)
[2024-06-27] MEDS: REQUIP 0.5 MG PO (21:19)
[2024-06-28] VITALS (8 sets, daily range): BP systolic 151–192; BP diastolic 68–114; PULSE 79; O2SAT 99
[2024-06-28] MEDS: APRESOLINE 5 MG IV ×2 (03:40→19:34)
[2024-06-28] MEDS: FIRVANQ 125 MG PO ×4 (05:01→23:00)
[2024-06-28] MEDS: ZOSYN 50 IV ×2 (05:01→12:27)
[2024-06-28 06:38] LABS: Hematocrit 30.9 % (37.0-47.0); Hemoglobin 9.5 g/dL (12.0-16.0); Mean Corp Hgb Conc. 30.7 g/dL (33.0-37.0); Mean Corpuscular Hgb 27.3 pg (27.0-31.0); Mean Corpuscular Volume 88.8 fL (81.0-99.0); Mean Platelet Volume 11.3 fL (7.4-10.4); Platelet Count 205 10^3/uL (130-400); Red Blood Cell Count 3.48 10^6/uL (4.20-5.40); Red Cell Dist. Width 13.7 % (11.5-14.5); White Blood Cell Count 6.1 10^3/uL (4.8-10.8)
[2024-06-28 07:10] LABS: Blood Urea Nitrogen 11 mg/dl (7-17); Calcium 8.9 mg/dl (8.4-10.2); Carbon Dioxide 27 mmol/L (22-30); Chloride 102 mmol/L (98-107); Estimated Creatinine Clearance 14 ml/min; Glucose 105 mg/dl (70-99); Potassium 3.2 mmol/L (3.5-5.1); Sodium 138 mmol/L (135-145); eGFR 27.44
[2024-06-28] MEDS: NON-FORMULARY ITEM 1 UNIT INH (07:26)
[2024-06-28] MEDS: MAGNESIUM SULFATE 50 IV (07:46)
[2024-06-28] MEDS: NSS (PRESERVATIVE FREE) 10 ML IV ×2 (07:46→19:34)
[2024-06-28] MEDS: PROTONIX IV 40 MG IV ×2 (07:46→19:34)
[2024-06-28] MEDS: PLAVIX 75 MG PO (07:46)
[2024-06-28] MEDS: KCL 40 MEQ PO (07:46)
[2024-06-28] MEDS: PROCARDIA XL (EXTENDED RELEASE) 90 MG PO (07:50)
--- NOTE | 2024-06-28 10:58 | W.PN.HOSP.TC ---
Addendum entered and electronically signed by Marychuy Martin MD 06/28/24 11:25:
updated daughter on the phone
DW CM
Original Note:
Today's Communication/Plan
-
see A/P
Assessment / Plan
Assessment / Plan
84-year-old female past medical history of COPD on 4L nasal cannula, hypertension, hyperlipidemia, rectal prolapse, renal artery stenosis, osteoporosis, renal stents; p/w abdominal pain associated with bloody diarrhea. Found to have moderate to
severe colitis.
A/P:
# Sepsis POA 2/2 colitis
stool culture negative, Norovirus negative
C. difficile antigen positive/toxin negative.
Continue Zosyn,
Added PO vancomycin for C diff coverage
liberalize low residue diet to regular to help with current loss of apatite
Monitor hemoglobin, no obvious acute blood loss anemia this time; blood and diarrhea most likely secondary to inflammation
GI on board
ID CS due to worsening symptoms per pt
# CORNELIA on CKD stage IIIb
Suspect prerenal secondary to diarrhea versus septic ATN
Creatinine 2.1 to 1.8 today which is at baseline
s/p IVF
renal US unrevealing: mild bilateral renal atrophy without hydronephrosis. Bilateral renal simple cysts.
# Coronary disease
# History of carotid disease
Continue aspirin and Plavix for now
No active chest pain
Continue Toprol
# Hypertension
resumed nifedipine
continue Toprol
# Anemia of chronic disease
Continue to monitor hemoglobin for possible acute blood loss anemia
# COPD with chronic hypoxic respiratory failure on 4 L of oxygen at baseline
# Hyperlipidemia
Hold Zetia
# Restless legs
Continue ropinirole, gabapentin
# Osteoporosis
Continue alendronate
Full code
DVT ppx: SCD 2/2 blood in stool
Dispo: home PT
Anticipated Discharge: 24 - 48 hours
Subjective/Interval History
-
Date of Service: June 28, 2024
Objective Data
-
Labs:
Laboratory Results
06/28/24
06:15
WBC 6.1
Hgb 9.5 L
Hct 30.9 L
Plt Count 205
Sodium 138
Potassium 3.2 L
Chloride 102
Carbon Dioxide 27
BUN 11
Creatinine 1.8 H
Glucose 105 H
Calcium 8.9
Vital Signs:
Vital Signs
Temp Pulse Resp BP Pulse Ox
36.3 C 88 18 159/93 98
06/28/24 08:11 06/28/24 08:11 06/28/24 08:11 06/28/24 08:11 06/28/24 08:11
I&O
06/27/24 06/28/24 06/29/24
06:59 06:59 06:59
Intake Total 270 / 270 1040 / 1040
Balance 270 / 270 1040 / 1040
Review of Systems
-
History Source: Patient
Abdomen/GI: Reports Diarrhea
Physical Exam
-
General: Well Developed, Well Nourished, Comfortable, Respiratory Distress (chronic) and Conversant
HEENT: Normocephalic, Atraumatic, Nose Appears Normal, Ears Appear Normal and Oxygen (chronically on 5L NC)
Respiratory: Clear to Auscultation and Non Labored Respirations; Negative Accessory Resp Muscle Use
Cardiac: Regular Rhythm and S1/S2
GI: Soft, Nontender, Nondistended and Normal Bowel Sounds
Skin: Warm and Dry
Neuro: Awake, Alert and Oriented
Psych: Calm and Intact Judgement/Insight
Data Reviewed
-
Labs: Labs Reviewed by me
--- NOTE | 2024-06-28 12:12 | CON.ID ---
Consultation
-
Date/Time Consultation Requested: 06/28/2024 1112
Date/Time Consultation Performed: 06/28/2024 1139
Requesting Provider: Dr. Martin
Performing Provider: Dr. Romero
Reason for Consultation: Colitis
Chief Complaint / Past History
History of Present Illness
Michelle Cavanaugh is an 84-year-old female being evaluated at the request of Dr. Martin in regards to colitis. History is obtained from chart review, along with patient interview.
The patient has a significant past medical history of COPD and hypertension. She presented to the emergency room on 06/23 secondary to reported 1 week of generalized weakness, along with abdominal pain diarrhea. According to the ER she had had
bloody diarrhea the prior 24 hours. No history of recent travel, no sick contacts.
Since admission she has been evaluated by GI, and additionally has been started on empiric antibiotics (Zosyn). C. difficile testing has been found to be positive for antigen, but negative for toxin.
At this point in time she continues to have some diffuse abdominal discomfort.
Past History
Additional Past Medical History:
COPD
Rectal prolapse
CAD
HTN
Dyslipidemia
Carotid artery disease
Additional Past Surgical History:
Hysterectomy
Ureteral stenting
Allergy History:
No Known Allergies Allergy (Verified 06/23/24 08:27)
Medications Reviewed: Yes
Current Antibiotics:
Zosyn 2.25 g IV every 6 hours (d#5)
Vancomycin p.o. 125 mg p.o. every 6 hours (d#3)
Social History
Tobacco: Non-Smoker
Alcohol: None
Drug: None
Personal:
Living: With Family
Employment: Not Employed
Family History
Family History: Not Pertinent
Review of Systems
Vital Signs
Temp Pulse Resp BP Pulse Ox
97.3 F 88 18 159/93 98
06/28/24 08:11 03/06/25 08:11 06/28/24 08:11 06/28/24 08:11 06/28/24 08:11
Physical Exam
Physical Exam
Constitutional: No Acute Distress, Comfortable, Chronically Ill and Non-toxic
Head: Normocephalic
Eyes: Pupils Equal, Pupils Round, No Conjunctival Hemorrhage and Sclera Anicteric
Cardiovascular: Regular Rate and S1/S2; Negative S3/S4
Pulmonary: Clear and Non Labored; Negative Wheezes or Rales
Gastrointestinal: Soft, Tender (mild, diffusely), Non Distended, Normal Bowel Sounds, No Rebound and No Guarding
Genito-Urinary: Negative Rojas
Extremities: Negative Edema, Clubbing or Cyanosis
Neurological: Awake and Alert
Psychological: Calm
.
Lab / Diagnostic Study Results
06/28/24 06:15
06/28/24 06:15
Abs Immat Gran (auto) 0.0 10^3/uL (0-0.05) 06/23/24 08:43
Absolute Neuts (auto) 10.7 10^3/uL (1.4-6.5) H 06/23/24 08:43
Absolute Lymphs (auto) 1.2 10^3/uL (1.2-3.4) 06/23/24 08:43
Absolute Monos (auto) 0.5 10^3/uL (0.1-0.6) 06/23/24 08:43
Absolute Basos (auto) 0.0 10^3/uL (0-0.2) 06/23/24 08:43
Immature Gran % 0.2 % (0-0.5) 06/23/24 08:43
Neutrophils % 84.9 % (42.2-75.2) H 06/23/24 08:43
Lymphocytes % 9.8 % (20.5-51.1) L 06/23/24 08:43
Monocytes % 4.3 % (1.7-9.3) 06/23/24 08:43
Eosinophils % 0.5 % (0-6) 06/23/24 08:43
Basophils % 0.3 % (0-2) 06/23/24 08:43
Lactic Acid 0.9 mmol/L (0.7-2.0) 06/23/24 10:38
Microbiology Results
Micro:
06/23/24 10:38 Blood Culture - Final
Blood/Venous No Growth - Final Report
06/23/24 10:38 Blood Culture - Final
Blood/Venous No Growth - Final Report
06/24/24 14:43 - Final
Feces/Stool NO YERSINIA SPECIES ISOLATED
Stool Leukocytes - Final
06/24/24 14:43 Salmonella/Shigella Culture - Final
Feces/Stool No Salmonella, Shigella, Aeromonas or Plesiomonas species
isolated.
Campylobacter Culture - Final
No Campylobacter species isolated.
Shiga Toxin Test - Final
No E. coli Shiga Toxin 1 or 2 detected.
06/24/24 12:07 C. difficile GDH Antigen & Toxins - Final
Feces/Stool C. difficile antigen positive, toxin negative.
Clostridium difficile present, but toxin not detected.
Patient may be a carrier, colonized with nontoxinogenic
strain or the level of toxin in sample is below detection
limits. This information should be used in conjunction with
the patient's clinical history.
- Final
Negative for Norovirus GI and GII.
Imaging:
06/23/2024 CT abdomen/pelvis without contrast: Moderate to severe colitis of the descending colon, with a differential diagnosis of infectious versus inflammatory versus ischemic.
09/05/2022 CT abdomen/pelvis without IV contrast: Findings suggestive of mild diffuse colitis throughout the transverse, descending and sigmoid colon. Findings are nonspecific and likely of infectious/inflammatory etiology
Assessment / Plan
Diarrhea
Leukocytosis; quickly resolved
Generalized weakness
COPD
Rectal prolapse
CAD
HTN
Dyslipidemia
Carotid artery disease
Recommendations:
Leukocytosis quickly resolved following admission.
C. difficile testing noted (Ag+ / Tox-). Given testing prior to the initiation of vanco, I do not have high suspicion for C. difficile infection, although cannot completely rule it out.
In review of records, it appears that patient had similar symptomatology last year, although it was felt to be possibly infectious at that point in time, ischemic colitis was on the differential. Given recurrence at this time I would recommend
further investigation of this potential diagnosis.
Continue with enteral vancomycin to complete a 10-day course. Discontinue further Zosyn.
Would pursue further workup for potential ischemic colitis. Will defer to GI.
[2024-06-28] MEDS: KCL 20 MEQ PO (12:27)
--- NOTE | 2024-06-28 14:31 | CM ---
Addendum entered by Clementine Mejia 06/28/24 14:44:
SNF referrals sent to the following facilities:
[facility]
CM spoke with patient's daughter, Coco Tim, via phone (# [phone]); she [place] of state; and requested that CM contact her with update on bed availability
Original Note:
Met with patient to discuss discharge plan; patient is agreeable to going to a SNF; list of options discussed; preferences identified
Referrals sent via [facility]
Plan: Discharge to SNF pending bed availability and AUTH approval
[2024-06-28] MEDS: NSS 1000 IV (14:36)
--- NOTE | 2024-06-28 14:46 | W.PN.GI.CBS2 ---
Today's Communication / Plan
-
She is overall improving since admission
Continue PO vanco for C diff ag positive, toxin negative. Agree with ID this is a soft indication
Whether the cause is ischemic or infectious colitis, would treat with supportive care, bowel rest, maintain BP, finished abx (zosyn)
If worsening, would repeat CT scan to r/o developing complication such as abscess, which I currently doubt
I do not believe colonoscopy necessary at this time
Can discuss colonoscopy as outpt after resolution of this attack, if she wishes to pursue at age 84. Risk of procedure would be lower rather than during bout of colitis.
Will follow up
Assessment / Plan
-
84-year-old female with history of COPD on oxygen, hypertension, dyslipidemia, large rectal prolapse ( not a surgical candidate as per patient's daughter ) is admitted with left sided abdominal pain/bloody diarrhea. ED labs�WBC 12.6/Hb 11/platelets
237. Lactic acid 0.9. Liver test normal. BUN 36/serum creatinine 2.1
CT abdomen/pelvis without contrast- Moderate to severe colitis of the descending colon, which may be infectious, inflammatory, or ischemic..
Impression:
L sided colitis. Infectious v Ischemic
C diff Ag positive, toxin negative
-- Abdominal pain/bloody diarrhea/CT showing colitis in the descending colon -etiology infectious versus ischemic versus inflammatory. Last colonoscopy over 10 years back. Had colitis 08/2022-thought to be infectious at that time
-- Coronary artery disease/carotid artery disease on Plavix
Subjective
Subjective
Date of Service: June 28, 2024
Asked to re-see patient for ongoing abd pain and concern for ischemic colitis. Pt tolerating diet. Still has abd pain but improved from admission. Had some diarrhea overnight
Objective
Data Reviewed
Laboratory Data:
Laboratory Results
06/28/24 06:15
06/28/24 06:15
Laboratory Results
Magnesium 1.7 mg/dl (1.6-2.3) 06/27/24 07:39
Total Bilirubin 0.5 mg/dl (0.2-1.3) 06/25/24 07:24
AST 24 U/L (14-36) 06/25/24 07:24
ALT 12 U/L (0-35) 06/25/24 07:24
Alkaline Phosphatase 87 U/L (38-126) 06/25/24 07:24
Lipase 71 U/L (23-300) 06/23/24 08:43
Vital Signs and I&O:
Vital Signs
Temp Pulse Resp BP Pulse Ox
97.9 F 83 18 161/88 98
06/28/24 11:00 06/28/24 11:00 06/28/24 11:00 06/28/24 11:00 06/28/24 11:00
I&O
06/27/24 06/28/24 06/29/24
06:59 06:59 06:59
Intake Total 270 / 270 1040 / 1040 720 / 720
Balance 270 / 270 1040 / 1040 720 / 720
Physical Exam
Physical Exam
GI: Soft and Tender (mild left sided tenderness, much improved from earlier this week)
[2024-06-28] MEDS: ASPIR LOW (ENTERIC COATED) 81 MG PO (17:45)
[2024-06-28] MEDS: REQUIP 0.5 MG PO (21:03)
[2024-06-28] MEDS: TOPROL XL 25 MG PO (21:03)
[2024-06-29 03:03] VITALS: BP 161/67
[2024-06-29] MEDS: FIRVANQ 125 MG PO ×4 (05:35→23:18)
[2024-06-29 07:50] VITALS: BP 203/81
[2024-06-29] MEDS: NSS (PRESERVATIVE FREE) 10 ML IV ×2 (08:01→19:51)
[2024-06-29] MEDS: PLAVIX 75 MG PO (08:02)
[2024-06-29] MEDS: PROTONIX IV 40 MG IV ×2 (08:02→19:51)
[2024-06-29] MEDS: PROCARDIA XL (EXTENDED RELEASE) 90 MG PO (08:02)
[2024-06-29] MEDS: NON-FORMULARY ITEM 1 UNIT INH (08:32)
[2024-06-29 08:36] LABS: Blood Urea Nitrogen 10 mg/dl (7-17); Calcium 8.5 mg/dl (8.4-10.2); Carbon Dioxide 26 mmol/L (22-30); Chloride 105 mmol/L (98-107); Estimated Creatinine Clearance 17 ml/min; Glucose 96 mg/dl (70-99); Potassium 3.8 mmol/L (3.5-5.1); Sodium 138 mmol/L (135-145); eGFR 34.15
[2024-06-29] MEDS: NSS 1000 IV (08:44)
[2024-06-29 09:00] LABS: Magnesium 2.2 mg/dl (1.6-2.3)
[2024-06-29 11:21] VITALS: BP 173/65
--- NOTE | 2024-06-29 12:02 | PTCARENOTE ---
attending notified of BP trends. PRN not applicable
--- NOTE | 2024-06-29 12:35 | W.PN.HOSP.TC ---
Today's Communication/Plan
-
see AP
Assessment / Plan
Assessment / Plan
84-year-old female past medical history of COPD on 4L nasal cannula, hypertension, hyperlipidemia, rectal prolapse, renal artery stenosis, osteoporosis, renal stents; p/w abdominal pain associated with bloody diarrhea. Found to have moderate to
severe colitis.
A/P:
# Sepsis POA 2/2 colitis
stool culture negative, Norovirus negative
C. difficile antigen positive/toxin negative.
No need for Zosyn per ID,
Cont PO vancomycin for C diff coverage, total 10 days
liberalized low residue diet to regular to help with loss of apatite
Monitor hemoglobin, no obvious acute blood loss anemia this time; blood and diarrhea most likely secondary to inflammation
Appreciate GI and ID input
# CORNELIA on CKD stage IIIb
Suspect prerenal secondary to diarrhea versus septic ATN
Creatinine 2.1 to 1.5 today which is at baseline
s/p IVF
renal US unrevealing: mild bilateral renal atrophy without hydronephrosis. Bilateral renal simple cysts.
# Coronary disease
# History of carotid disease
No active chest pain
Continue aspirin and Plavix for now
# Hypertension
resumed nifedipine
changed DISPENSARY TECHNICIAN Toprol to Coreg for better BP control
IV hydralazine PRN
# Anemia of chronic disease
Continue to monitor hemoglobin for possible acute blood loss anemia
# COPD with chronic hypoxic respiratory failure on 4 L of oxygen at baseline
# Hyperlipidemia
Hold Zetia
# Restless legs
Continue ropinirole, gabapentin
# Osteoporosis
Continue alendronate
Full code
DVT ppx: SCD 2/2 blood in stool
Dispo: pt has elected SNF, CM on board to facilitate SNF dispo
DW RN
Anticipated Discharge: 24 - 48 hours
Subjective/Interval History
-
Date of Service: June 29, 2024
Objective Data
-
Labs:
Laboratory Results
06/29/24
08:01
Sodium 138
Potassium 3.8
Chloride 105
Carbon Dioxide 26
BUN 10
Creatinine 1.5 H
Glucose 96
Calcium 8.5
Vital Signs:
Vital Signs
Temp Pulse Resp BP Pulse Ox
36.7 C 77 20 173/65 100
06/29/24 11:21 06/29/24 11:21 06/29/24 11:21 06/29/24 11:21 06/29/24 11:21
I&O
06/28/24 06/29/24 06/30/24
06:59 06:59 06:59
Intake Total 1040 / 1040 1959
Balance 1040 / 1040 1959
Review of Systems
-
History Source: Patient
Abdomen/GI: Reports Diarrhea (improving )
Physical Exam
-
General: Well Developed, Well Nourished, Comfortable, Respiratory Distress (chronic) and Conversant
HEENT: Normocephalic, Atraumatic, Nose Appears Normal, Ears Appear Normal and Oxygen (chronically on 5L NC)
Respiratory: Clear to Auscultation and Non Labored Respirations; Negative Accessory Resp Muscle Use
Cardiac: Regular Rhythm and S1/S2
GI: Soft, Nontender, Nondistended and Normal Bowel Sounds
Skin: Warm and Dry
Neuro: Awake, Alert and Oriented
Psych: Calm and Intact Judgement/Insight
Data Reviewed
-
Labs: Labs Reviewed by me
--- NOTE | 2024-06-29 12:39 | W.PN.ID1 ---
Date of Service
Date of Service: June 29, 2024
Today's Communication
completed a 3 day course of zosyn
patient is planned to finish 10 day oral vancomycin course
stable for dc from ID perspective; ID service will no longer actively follow this patient please recall for further questions
Assessment / Plan
Diarrhea - resolved
Leukocytosis; quickly resolved
Generalized weakness
COPD
Rectal prolapse
CAD
HTN
Dyslipidemia
Carotid artery disease
Recommendations:
suspect ischemic colitis
completed a 3 day course of zosyn
patient is planned to finish 10 day oral vancomycin course
stable for dc from ID perspective; ID service will no longer actively follow this patient please recall for further questions
Chief Complaint
-: Other (ischemic colitis)
Subjective / Review of Systems
afebrile
bp stable
stools now loose
still with some abdominal tenderness - improved per patient
Vital Signs / Physical Exam
Vital Signs
Vital Signs
Temp Pulse Resp BP Pulse Ox
98.1 F 77 20 173/65 100
06/29/24 11:21 06/29/24 11:21 06/29/24 11:21 06/29/24 11:21 06/29/24 11:21
Physical Exam
Constitutional: No Acute Distress
Cardiovascular: Regular Rate and S1/S2; Negative Murmur or Rub
Pulmonary: Clear and Symmetric; Negative Wheezes or Rales
Gastrointestinal: Soft, Tender (still with some abdominal tenderness - improved per patient ), Non Distended and Normal Bowel Sounds
Skin: Warm and Dry; Negative Rash or Jaundice
Objective Data
Lab Data
Lab Results
06/28/24 06:15
06/29/24 08:01
Estimated Creat Clear 17 ml/min 06/29/24 08:01
Lactic Acid 0.9 mmol/L (0.7-2.0) 06/23/24 10:38
Total Bilirubin 0.5 mg/dl (0.2-1.3) 06/25/24 07:24
AST 24 U/L (14-36) 06/25/24 07:24
ALT 12 U/L (0-35) 06/25/24 07:24
Alkaline Phosphatase 87 U/L (38-126) 06/25/24 07:24
C-Reactive Protein 52.80 mg/L (0.0-10.00) H 06/28/24 06:15
Most recent labs reviewed.
Micro Results:
06/23/24 10:38 Blood Culture - Final
Blood/Venous No Growth - Final Report
06/23/24 10:38 Blood Culture - Final
Blood/Venous No Growth - Final Report
06/24/24 14:43 - Final
Feces/Stool NO YERSINIA SPECIES ISOLATED
Stool Leukocytes - Final
06/24/24 14:43 Salmonella/Shigella Culture - Final
Feces/Stool No Salmonella, Shigella, Aeromonas or Plesiomonas species
isolated.
Campylobacter Culture - Final
No Campylobacter species isolated.
Shiga Toxin Test - Final
No E. coli Shiga Toxin 1 or 2 detected.
06/24/24 12:07 C. difficile GDH Antigen & Toxins - Final
Feces/Stool C. difficile antigen positive, toxin negative.
Clostridium difficile present, but toxin not detected.
Patient may be a carrier, colonized with nontoxinogenic
strain or the level of toxin in sample is below detection
limits. This information should be used in conjunction with
the patient's clinical history.
- Final
Negative for Norovirus GI and GII.
Imaging:
06/23/2024 CT abdomen/pelvis without contrast: Moderate to severe colitis of the descending colon, with a differential diagnosis of infectious versus inflammatory versus ischemic.
09/05/2022 CT abdomen/pelvis without IV contrast: Findings suggestive of mild diffuse colitis throughout the transverse, descending and sigmoid colon. Findings are nonspecific and likely of infectious/inflammatory etiology
Care Review
Plan reviewed with: Physician (Dr moon - kathyo)
--- NOTE | 2024-06-29 12:48 | W.PN.GI.CBS2 ---
Today's Communication / Plan
-
vanco 10 days
Assessment / Plan
-
84-year-old female with history of COPD on oxygen, hypertension, dyslipidemia, large rectal prolapse ( not a surgical candidate as per patient's daughter ) is admitted with left sided abdominal pain/bloody diarrhea. ED labs�WBC 12.6/Hb 11/platelets
237. Lactic acid 0.9. Liver test normal. BUN 36/serum creatinine 2.1
CT abdomen/pelvis without contrast- Moderate to severe colitis of the descending colon, which may be infectious, inflammatory, or ischemic..
Impression:
clinically improving (d/w nurse as well)
complete 10 days of vanco
will sign off call with questions
Subjective
Subjective
Date of Service: June 29, 2024
d/w nurse; eating w/o problem. stool starting to form
Objective
Data Reviewed
Laboratory Data:
Laboratory Results
06/28/24 06:15
06/29/24 08:01
Laboratory Results
Magnesium 2.2 mg/dl (1.6-2.3) 06/29/24 08:01
Magnesium Cancelled 06/29/24 08:01
Total Bilirubin 0.5 mg/dl (0.2-1.3) 06/25/24 07:24
AST 24 U/L (14-36) 06/25/24 07:24
ALT 12 U/L (0-35) 06/25/24 07:24
Alkaline Phosphatase 87 U/L (38-126) 06/25/24 07:24
Lipase 71 U/L (23-300) 06/23/24 08:43
Vital Signs and I&O:
Vital Signs
Temp Pulse Resp BP Pulse Ox
98.1 F 77 20 173/65 100
06/29/24 11:21 06/29/24 11:21 06/29/24 11:21 06/29/24 11:21 06/29/24 11:21
I&O
06/28/24 06/29/24 06/30/24
06:59 06:59 06:59
Intake Total 0 / 0 1959
Balance 0 / 0 1959
Physical Exam
Physical Exam
GI: Soft and Non Distended
--- NOTE | 2024-06-29 13:10 | CM ---
Addendum entered by Gerri Rodriguez RN 06/30/24 15:53:
CM updated patient's daughter with discharge plan.
Addendum entered by Gerri Rodriguez RN 06/30/24 14:47:
CM reviewed medical records. Patient is medically ready for discharge to SNF. CM attempted to call for authorization, however, patient's insurance is not available on weekends. CM will continue to follow.
PLAN: transfer to [facility] when authorization is available.
Addendum entered by Gerri Rodriguez RN 06/29/24 16:09:
[facility]
Dr. Meadows
[phone]
Addendum entered by Gerri Rodriguez RN 06/29/24 15:02:
Patient's daughter is agreeable to [facility].
Addendum entered by Gerri Rodriguez RN 06/29/24 14:28:
[facility] did not receive referral. CM will send via paper fax.
Addendum entered by Gerri Rodriguez RN 06/29/24 13:40:
CM added additional referrals to [facility], [facility], and [facility]. CM updated patient's daughter Coco with bed search. She is agreeable to other facilities and is requesting that patient not be sent back to [facility].
CM will continue to search.
Addendum entered by Gerri Rodriguez RN 06/29/24 13:31:
CM left message for [facility] admission coordinator regarding admission feedback.
Original Note:
CM reviewed medical records. Plan for discharge to SNF when medically ready. CM requested admission updated decision from El[facility]. Patient has been declined by [facility] as they are out of network.
[2024-06-29 15:21] VITALS: BP 147/64
[2024-06-29] MEDS: ASPIR LOW (ENTERIC COATED) 81 MG PO (17:17)
[2024-06-29 19:45] VITALS: BP 131/74
[2024-06-29] MEDS: COREG 12.5 MG PO (19:51)
[2024-06-29] MEDS: REQUIP 0.5 MG PO (21:11)
[2024-06-29 23:00] VITALS: BP 156/80
[2024-06-30] VITALS (7 sets, daily range): BP systolic 114–166; BP diastolic 48–77; PULSE 74; O2SAT 96
[2024-06-30] MEDS: FIRVANQ 125 MG PO ×4 (05:03→23:23)
[2024-06-30 06:28] LABS: Blood Urea Nitrogen 12 mg/dl (7-17); Calcium 7.9 mg/dl (8.4-10.2); Carbon Dioxide 25 mmol/L (22-30); Chloride 107 mmol/L (98-107); Estimated Creatinine Clearance 18 ml/min; Glucose 84 mg/dl (70-99); Potassium 3.4 mmol/L (3.5-5.1); Sodium 139 mmol/L (135-145)
[2024-06-30] MEDS: NON-FORMULARY ITEM 1 UNIT INH (08:16)
--- NOTE | 2024-06-30 08:41 | W.PN.HOSP.TC ---
Today's Communication/Plan
-
Stable and doing well. Ready to be discharged when bed is available.
Assessment / Plan
Assessment / Plan
84-year-old woman with past medical history of:
COPD on 4L nasal cannula,
hypertension,
hyperlipidemia,
rectal prolapse,
renal artery stenosis,
osteoporosis,
renal stents;
Comes in with abdominal pain associated with bloody diarrhea. Found to have moderate to severe colitis.
A/P:
1. Sepsis POA 2/2 colitis - resolved
stool culture negative, Norovirus negative
C. difficile antigen positive/toxin negative.
No need for Zosyn per ID,
Cont PO vancomycin for C diff coverage, total 10 days
liberalized low residue diet to regular to help with loss of apatite
ID signed off, consult appreciated
2. Bloody diarrhea secondary from above - resolving
Monitor hemoglobin, no obvious acute blood loss anemia this time; blood and diarrhea most likely secondary to inflammation
Appreciate GI and ID input
GI and ID signed off
3. CORNELIA on CKD stage IIIb - improving
Suspect prerenal secondary to diarrhea versus septic ATN
Creatinine 2.1 to 1.5 to 1.4 today which is at baseline
s/p IVF
renal US unrevealing:
mild bilateral renal atrophy without hydronephrosis. Bilateral renal simple cysts.
Outpatient follow up
4. Coronary disease and History of carotid disease
No active chest pain
Continue aspirin and Plavix for now
5. Hypertension - stable, at a good range today
resumed nifedipine
changed ORDER BOOKER Toprol to Coreg for better BP control
IV hydralazine PRN
6. Anemia of chronic disease - chronic, stable for now
Continue to monitor hemoglobin for possible acute blood loss anemia
7. COPD with chronic hypoxic respiratory failure on 4 L of oxygen at baseline
8. Hyperlipidemia - Hold Zetia
9. Restless legs - Continue ropinirole, gabapentin
10. Osteoporosis - Continue alendronate
Full code
DVT ppx: SCD 2/2 blood in stool
Dispo: pt has elected SNF, CM on board to facilitate SNF dispo. Ready to go when SNF bed available
DW RN
Anticipated Discharge: 24 - 48 hours
Subjective/Interval History
-
Date of Service: June 30, 2024
Feels well, no new issues.
Objective Data
-
Labs:
Laboratory Results
06/30/24
05:49
Sodium 139
Potassium 3.4 L
Chloride 107
Carbon Dioxide 25
BUN 12
Creatinine 1.4 H
Glucose 84
Calcium 7.9 L
Vital Signs:
Vital Signs
Temp Pulse Resp BP Pulse Ox
97.6 F 80 18 133/77 100
06/30/24 07:45 06/30/24 08:23 06/30/24 08:23 06/30/24 07:45 06/30/24 08:23
I&O
06/29/24 06/30/24 07/01/24
06:59 06:59 07:59
Intake Total 1959 1440 / 1440
Balance 1959 1440 / 1440
Review of Systems
-
History Source: Patient
All other systems: Reviewed and negative
Physical Exam
-
General: Well Developed, Well Nourished, No Apparent Distress and Comfortable
HEENT: Normocephalic, Atraumatic, Nose Appears Normal, Ears Appear Normal and Hearing Impaired
Respiratory: Clear to Auscultation
Cardiac: Regular Rhythm and S1/S2
GI: Soft, Nontender and Nondistended
Musculoskeletal: No Clubbing and No Cyanosis
Skin: Warm and Dry
Neuro: Awake, Alert, Oriented and AO x 3
Psych: Calm
Data Reviewed
-
Labs: Labs Reviewed by
[2024-06-30] MEDS: PROCARDIA XL (EXTENDED RELEASE) 90 MG PO (09:14)
[2024-06-30] MEDS: NSS (PRESERVATIVE FREE) 10 ML IV ×2 (09:15→20:01)
[2024-06-30] MEDS: PROTONIX IV 40 MG IV ×2 (09:15→20:01)
[2024-06-30] MEDS: PLAVIX 75 MG PO (09:15)
[2024-06-30] MEDS: COREG 12.5 MG PO ×2 (09:15→20:01)
[2024-06-30] MEDS: ASPIR LOW (ENTERIC COATED) 81 MG PO (17:17)
--- NOTE | 2024-06-30 17:53 | W.PN.ID1 ---
Date of Service
Date of Service: June 30, 2024
Today's Communication
Continue po Vancomycin to complete 10 day course.
Assessment / Plan
Diarrhea - resolved
Leukocytosis; quickly resolved
Generalized weakness
COPD
Rectal prolapse
CAD
HTN
Dyslipidemia
Carotid artery disease
Recommendations:
suspect ischemic colitis
completed a 3 day course of zosyn
Continue oral vancomycin 125mg po qid (d5) to complete 10 day course
Chief Complaint
-: Other (ischemic colitis)
Subjective / Review of Systems
Diarrhea is better.
Vital Signs / Physical Exam
Vital Signs
Vital Signs
Temp Pulse Resp BP Pulse Ox
98.1 F 76 17 114/66 98
06/30/24 15:18 06/30/24 15:18 06/30/24 15:18 06/30/24 15:18 06/30/24 15:18
Physical Exam
Constitutional: No Acute Distress
Cardiovascular: Regular Rate and S1/S2
Pulmonary: Clear
Gastrointestinal: Soft, Non Tender, Non Distended and Normal Bowel Sounds
Neurological: AO x 3
Objective Data
Lab Data
Lab Results
06/28/24 06:15
06/30/24 05:49
Estimated Creat Clear 18 ml/min 06/30/24 05:49
Lactic Acid 0.9 mmol/L (0.7-2.0) 06/23/24 10:38
Total Bilirubin 0.5 mg/dl (0.2-1.3) 06/25/24 07:24
AST 24 U/L (14-36) 06/25/24 07:24
ALT 12 U/L (0-35) 06/25/24 07:24
Alkaline Phosphatase 87 U/L (38-126) 06/25/24 07:24
C-Reactive Protein 52.80 mg/L (0.0-10.00) H 06/28/24 06:15
Most recent labs reviewed.
Micro Results:
06/23/24 10:38 Blood Culture - Final
Blood/Venous No Growth - Final Report
06/23/24 10:38 Blood Culture - Final
Blood/Venous No Growth - Final Report
06/24/24 14:43 - Final
Feces/Stool NO YERSINIA SPECIES ISOLATED
Stool Leukocytes - Final
06/24/24 14:43 Salmonella/Shigella Culture - Final
Feces/Stool No Salmonella, Shigella, Aeromonas or Plesiomonas species
isolated.
Campylobacter Culture - Final
No Campylobacter species isolated.
Shiga Toxin Test - Final
No E. coli Shiga Toxin 1 or 2 detected.
06/24/24 12:07 C. difficile GDH Antigen & Toxins - Final
Feces/Stool C. difficile antigen positive, toxin negative.
Clostridium difficile present, but toxin not detected.
Patient may be a carrier, colonized with nontoxinogenic
strain or the level of toxin in sample is below detection
limits. This information should be used in conjunction with
the patient's clinical history.
- Final
Negative for Norovirus GI and GII.
Imaging:
06/23/2024 CT abdomen/pelvis without contrast: Moderate to severe colitis of the descending colon, with a differential diagnosis of infectious versus inflammatory versus ischemic.
09/05/2022 CT abdomen/pelvis without IV contrast: Findings suggestive of mild diffuse colitis throughout the transverse, descending and sigmoid colon. Findings are nonspecific and likely of infectious/inflammatory etiology
[2024-06-30] MEDS: REQUIP 0.5 MG PO (22:12)
[2024-07-01 04:00] VITALS: BP 122/71
[2024-07-01] MEDS: FIRVANQ 125 MG PO ×3 (05:08→17:35)
[2024-07-01 07:09] LABS: Hematocrit 27.9 % (37.0-47.0); Hemoglobin 8.8 g/dL (12.0-16.0); Mean Corp Hgb Conc. 31.5 g/dL (33.0-37.0); Mean Corpuscular Hgb 27.8 pg (27.0-31.0); Mean Corpuscular Volume 88.3 fL (81.0-99.0); Mean Platelet Volume 11.6 fL (7.4-10.4); Platelet Count 244 10^3/uL (130-400); Red Blood Cell Count 3.16 10^6/uL (4.20-5.40); White Blood Cell Count 8.1 10^3/uL (4.8-10.8)
[2024-07-01 07:34] LABS: Blood Urea Nitrogen 16 mg/dl (7-17); Calcium 8.6 mg/dl (8.4-10.2); Carbon Dioxide 24 mmol/L (22-30); Chloride 106 mmol/L (98-107); Estimated Creatinine Clearance 17 ml/min; Glucose 89 mg/dl (70-99); Potassium 3.6 mmol/L (3.5-5.1); Sodium 139 mmol/L (135-145); eGFR 34.15
[2024-07-01 07:37] VITALS: BP 125/88
[2024-07-01] MEDS: NON-FORMULARY ITEM 1 UNIT INH (08:41)
[2024-07-01] MEDS: PROCARDIA XL (EXTENDED RELEASE) 90 MG PO (09:14)
[2024-07-01] MEDS: PROTONIX IV 40 MG IV ×2 (09:15→20:49)
[2024-07-01] MEDS: NSS (PRESERVATIVE FREE) 10 ML IV ×2 (09:15→20:48)
[2024-07-01] MEDS: PLAVIX 75 MG PO (09:15)
[2024-07-01] MEDS: COREG 12.5 MG PO ×2 (09:15→20:48)
--- NOTE | 2024-07-01 09:25 | W.PN.HOSP.TC ---
Today's Communication/Plan
-
Doing well. Stable. Waiting for outpatient bed.
Assessment / Plan
Assessment / Plan
84-year-old woman with past medical history of:
COPD on 4L nasal cannula 15/11,
hypertension,
hyperlipidemia,
rectal prolapse,
renal artery stenosis,
osteoporosis,
renal stents;
Comes in with abdominal pain associated with bloody diarrhea. Found to have moderate to severe colitis.
A/P:
1. Sepsis POA / colitis - resolved
stool culture negative, Norovirus negative
C. difficile antigen positive/toxin negative.
No need for further Zosyn per ID, (had 3 days of it)
Cont PO vancomycin for C diff coverage, total 10 days
liberalized low residue diet to regular to help with loss of appetite
ID signed off, consult appreciated
2. Bloody diarrhea secondary from above - resolving
Monitor hemoglobin, no obvious acute blood loss anemia this time; blood and diarrhea most likely secondary to inflammation
Appreciate GI and ID input
GI and ID signed off
3. CORNELIA on CKD stage IIIb - improving
Suspect prerenal secondary to diarrhea versus septic ATN
Creatinine 2.1 to 1.5 today which is at baseline
s/p IVF
renal US unrevealing:
mild bilateral renal atrophy without hydronephrosis. Bilateral renal simple cysts.
Outpatient follow up
4. Coronary disease and History of carotid disease
No active chest pain
Continue aspirin and Plavix for now
5. Hypertension - stable, at a good range today
resumed nifedipine
changed TEST DESK SUPERVISOR Toprol to Coreg for better BP control
IV hydralazine PRN
6. Anemia of chronic disease - chronic, stable for now, but trending down. H/H 8.8/27.9
Continue to monitor hemoglobin for possible acute blood loss anemia
7. COPD with chronic hypoxic respiratory failure on 4 L of oxygen at baseline
8. Hyperlipidemia - Hold Zetia
9. Restless legs - Continue ropinirole, gabapentin
10. Osteoporosis - Continue alendronate
Full code
DVT ppx: SCD 2/2 blood in stool
Dispo: pt has elected SNF, CM on board to facilitate SNF dispo. Ready to go when SNF bed available, not available today
DW RN
Anticipated Discharge: 24 - 48 hours
Subjective/Interval History
-
Date of Service: July 01, 2024
Feels ok. No new issues. Tolerating a diet.
Objective Data
-
Labs:
Laboratory Results
07/01/24
06:20
WBC 8.1
Hgb 8.8 L
Hct 27.9 L
Plt Count 244
Sodium 139
Potassium 3.6
Chloride 106
Carbon Dioxide 24
BUN 16
Creatinine 1.5 H
Glucose 89
Calcium 8.6
Vital Signs:
Vital Signs
Temp Pulse Resp BP Pulse Ox
98.5 F 88 16 125/88 97
07/01/24 07:37 07/01/24 08:47 07/01/24 08:47 07/01/24 07:37 07/01/24 08:47
I&O
06/30/24 07/01/24 07/02/24
05:59 06:59 06:59
Intake Total
Balance
Review of Systems
-
History Source: Patient
All other systems: Reviewed and negative
Abdomen/GI: Reports Other (poor appetite)
Physical Exam
-
General: Well Developed, Well Nourished, No Apparent Distress and Comfortable
HEENT: Normocephalic, Atraumatic, Nose Appears Normal, Ears Appear Normal and Hearing Impaired
Respiratory: Clear to Auscultation and Other (uses chronic oxygen)
Cardiac: Regular Rhythm and S1/S2
GI: Soft
Musculoskeletal: No Clubbing and No Cyanosis
Skin: Warm and Dry
Neuro: Awake, Alert and Oriented
Psych: Calm
Data Reviewed
-
Labs: Labs Reviewed by me
[2024-07-01 11:26] VITALS: BP 105/42
[2024-07-01 15:35] VITALS: BP 122/79
[2024-07-01] MEDS: ASPIR LOW (ENTERIC COATED) 81 MG PO (17:35)
[2024-07-01 20:07] VITALS: BP 152/61
[2024-07-01] MEDS: REQUIP 0.5 MG PO (22:25)
[2024-07-01 23:00] VITALS: BP 128/79
[2024-07-02] MEDS: FIRVANQ 125 MG PO ×5 (00:08→23:08)
[2024-07-02 08:15] VITALS: BP 174/66
[2024-07-02 08:22] LABS: Hematocrit 27.2 % (37.0-47.0); Hemoglobin 8.3 g/dL (12.0-16.0); Mean Corp Hgb Conc. 30.5 g/dL (33.0-37.0); Mean Corpuscular Hgb 27.3 pg (27.0-31.0); Mean Corpuscular Volume 89.5 fL (81.0-99.0); Mean Platelet Volume 11.3 fL (7.4-10.4); Platelet Count 245 10^3/uL (130-400); Red Blood Cell Count 3.04 10^6/uL (4.20-5.40); Red Cell Dist. Width 14.2 % (11.5-14.5)
[2024-07-02] MEDS: COREG 12.5 MG PO ×2 (08:36→19:24)
[2024-07-02] MEDS: PLAVIX 75 MG PO (08:37)
[2024-07-02] MEDS: PROCARDIA XL (EXTENDED RELEASE) 90 MG PO (08:37)
[2024-07-02] MEDS: NSS (PRESERVATIVE FREE) 10 ML IV ×2 (08:37→19:23)
[2024-07-02] MEDS: PROTONIX IV 40 MG IV ×2 (08:37→19:23)
[2024-07-02 08:41] LABS: Blood Urea Nitrogen 18 mg/dl (7-17); Calcium 8.6 mg/dl (8.4-10.2); Carbon Dioxide 29 mmol/L (22-30); Chloride 105 mmol/L (98-107); Estimated Creatinine Clearance 15 ml/min; Glucose 89 mg/dl (70-99); Potassium 3.7 mmol/L (3.5-5.1); Sodium 137 mmol/L (135-145); eGFR 29.39
[2024-07-02] MEDS: NON-FORMULARY ITEM 1 UNIT INH (08:41)
--- NOTE | 2024-07-02 09:02 | CM ---
Addendum entered by Harriet Law 07/02/24 17:03:
Physician notified of auth but plans to hold patient to confirm medical treatment plan. will update facility and patient family tomorrow.
Original Note:
Patient chart reviwed and CM will start auth pending confirmation of bed availability and patient physician assessment.
--- NOTE | 2024-07-02 14:42 | W.PN.ID1 ---
Date of Service
Date of Service: July 02, 2024
Today's Communication
Continue enteral Vanco
Assessment / Plan
Diarrhea - resolved
Leukocytosis; quickly resolved
Generalized weakness
COPD
Rectal prolapse
CAD
HTN
Dyslipidemia
Carotid artery disease
Recommendations:
suspect ischemic colitis
completed a 3 day course of zosyn
Continue oral vancomycin 125mg po qid (d#7) to complete 10 day course
Chief Complaint
-: Other (ischemic colitis)
Subjective / Review of Systems
Review of Systems: No Fever, No Chills and No Diarrhea (Stool described as 'mushy')
Vital Signs / Physical Exam
Vital Signs
Vital Signs
Temp Pulse Resp BP Pulse Ox
97.9 F 85 14 174/66 99
07/02/24 08:15 07/02/24 08:43 07/02/24 08:43 07/02/24 08:15 07/02/24 08:43
Physical Exam
Constitutional: No Acute Distress, Comfortable and Non-toxic
Pulmonary: Non Labored
Gastrointestinal: Non Distended
Neurological: Awake and Alert
Psychological: Calm
Objective Data
Lab Data
Lab Results
07/02/24 07:53
07/02/24 07:53
Estimated Creat Clear 15 ml/min 07/02/24 07:53
Lactic Acid 0.9 mmol/L (0.7-2.0) 06/23/24 10:38
Total Bilirubin 0.5 mg/dl (0.2-1.3) 06/25/24 07:24
AST 24 U/L (14-36) 06/25/24 07:24
ALT 12 U/L (0-35) 06/25/24 07:24
Alkaline Phosphatase 87 U/L (38-126) 06/25/24 07:24
C-Reactive Protein 52.80 mg/L (0.0-10.00) H 06/28/24 06:15
Most recent labs reviewed.
Micro Results:
06/23/24 10:38 Blood Culture - Final
Blood/Venous No Growth - Final Report
06/23/24 10:38 Blood Culture - Final
Blood/Venous No Growth - Final Report
06/24/24 14:43 - Final
Feces/Stool NO YERSINIA SPECIES ISOLATED
Stool Leukocytes - Final
06/24/24 14:43 Salmonella/Shigella Culture - Final
Feces/Stool No Salmonella, Shigella, Aeromonas or Plesiomonas species
isolated.
Campylobacter Culture - Final
No Campylobacter species isolated.
Shiga Toxin Test - Final
No E. coli Shiga Toxin 1 or 2 detected.
06/24/24 12:07 C. difficile GDH Antigen & Toxins - Final
Feces/Stool C. difficile antigen positive, toxin negative.
Clostridium difficile present, but toxin not detected.
Patient may be a carrier, colonized with nontoxinogenic
strain or the level of toxin in sample is below detection
limits. This information should be used in conjunction with
the patient's clinical history.
- Final
Negative for Norovirus GI and GII.
Imaging:
06/23/2024 CT abdomen/pelvis without contrast: Moderate to severe colitis of the descending colon, with a differential diagnosis of infectious versus inflammatory versus ischemic.
09/05/2022 CT abdomen/pelvis without IV contrast: Findings suggestive of mild diffuse colitis throughout the transverse, descending and sigmoid colon. Findings are nonspecific and likely of infectious/inflammatory etiology
--- NOTE | 2024-07-02 14:57 | W.PN.HOSP.TC ---
Today's Communication/Plan
-
iv lasix
echo
oral vanc
Assessment / Plan
Assessment / Plan
84-year-old woman with past medical history of:
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
hypertension,
hyperlipidemia,
rectal prolapse,
renal artery stenosis,
osteoporosis,
renal stents;
Comes in with abdominal pain associated with bloody diarrhea. Found to have moderate to severe colitis.
A/P:
84-year-old female past medical history of COPD on 4L nasal cannula, hypertension, hyperlipidemia, rectal prolapse, renal artery stenosis, osteoporosis, renal stents; p/w abdominal pain associated with bloody diarrhea. Found to have moderate to
severe colitis.
A/P:
# Sepsis POA 2/2 colitis
=suspect ischemic colitis
stool culture negative, Norovirus negative
C. difficile antigen positive/toxin negative.
No need for Zosyn
Cont PO vancomycin for C diff coverage, total 10 days (11/01)
liberalized low residue diet to regular to help with loss of apatite
Monitor hemoglobin, no obvious acute blood loss anemia this time; blood and diarrhea most likely secondary to inflammation
Appreciate GI and ID input
will need GI outpt eval
#Acute HFpEF
-cxr with pulmonary congestion
-start iv lasix 20mg daily
-ECHO f/u
# CORNELIA on CKD stage IIIb
Suspect prerenal secondary to diarrhea versus septic ATN
renal US unrevealing: mild bilateral renal atrophy without hydronephrosis. Bilateral renal simple cysts.
-improved
-monitor with lasix
# Coronary disease
# History of carotid disease
No active chest pain
Continue aspirin and Plavix for now
# Hypertension
resumed nifedipine
changed RELIGIOUS STUDIES PROFESSOR Toprol to Coreg for better BP control
IV hydralazine PRN
# Anemia of chronic disease
Continue to monitor hemoglobin for possible acute blood loss anemia
# COPD with chronic hypoxic respiratory failure on 4 L of oxygen at baseline
# Hyperlipidemia
Hold Zetia
# Restless legs
Continue ropinirole, gabapentin
# Osteoporosis
Continue alendronate
Full code
DVT ppx: SCD 2/2 blood in stool
Dispo: pt has elected SNF, CM on board to facilitate SNF dispo
IVY RN
Total time spent on today's encounter was 50 minutes which included time spent in counseling the patient/family regarding diagnosis and treatment plan as listed above, goals of care, and symptom management. Case was discussed with nursing staff,
specialists, and care coordinators/case management. All labs and imaging personally reviewed by me. Remainder the time spent in detailed review of previous records, lab data, imaging, and other medical provider documentation.
Anticipated Discharge: Within 24 hours
Subjective/Interval History
-
Date of Service: July 02, 2024
has sob, otherwise no gi issues
Objective Data
-
Labs:
Laboratory Results
07/02/24
07:53
WBC 9.0
Hgb 8.3 L
Hct 27.2 L
Plt Count 245
Sodium 137
Potassium 3.7
Chloride 105
Carbon Dioxide 29
BUN 18 H
Creatinine 1.7 H
Glucose 89
Calcium 8.6
Vital Signs:
Vital Signs
Temp Pulse Resp BP Pulse Ox
97.9 F 85 14 174/66 99
07/02/24 08:15 07/02/24 08:43 07/02/24 08:43 07/02/24 08:15 07/02/24 08:43
I&O
07/01/24 07/02/24 07/03/24
06:59 06:59 06:59
Intake Total 220 / 220 240 / 240
Output Total 200 / 200
Balance 220 / 220 40 / 40
Review of Systems
-
History Source: Patient
All other systems: Not reviewed unless documented
Physical Exam
-
General: Well Developed, Well Nourished, No Apparent Distress and Comfortable
HEENT: Normocephalic, Atraumatic, Nose Appears Normal, Ears Appear Normal and Hearing Impaired
Respiratory: Clear to Auscultation and Other (uses chronic oxygen)
Cardiac: Regular Rhythm and S1/S2
GI: Soft
Musculoskeletal: No Clubbing and No Cyanosis
Skin: Warm and Dry
Neuro: Awake, Alert and Oriented
Psych: Calm
Data Reviewed
-
Labs: Labs Reviewed by me
[2024-07-02 15:44] VITALS: BP 99/61
[2024-07-02 15:45] VITALS: BP 96/61; BP 96/69; O2SAT 95
--- NOTE | 2024-07-02 16:20 | CM ---
Addendum entered by Gini Domingo 07/02/24 16:33:
authorization received from [facility]- authorization # [id number], usp level 1.
approved 5 days.
Start date 07/02/24, LCD/NR07/06/24
Updates to Avinash [phone]
Original Note:
Authorization for skilled rehab at [facility] initiated with Avinash(Yann)
Spoke with Zoey
Pended reference # [id number]
Per Zoey sent to [facility] for review.
[2024-07-02] MEDS: ASPIR LOW (ENTERIC COATED) 81 MG PO (17:26)
[2024-07-02] MEDS: LASIX 20 MG IV (17:26)
[2024-07-02 17:35] VITALS: BP 138/69
[2024-07-02] MEDS: REQUIP 0.5 MG PO (22:20)
[2024-07-02 23:16] VITALS: BP 142/50
[2024-07-03 06:00] VITALS: BMI 22.8
[2024-07-03] MEDS: FOSAMAX 70 MG PO (06:08)
[2024-07-03] MEDS: FIRVANQ 125 MG PO ×4 (06:08→23:10)
[2024-07-03 07:29] LABS: Hematocrit 26.1 % (37.0-47.0); Hemoglobin 7.9 g/dL (12.0-16.0); Mean Corp Hgb Conc. 30.3 g/dL (33.0-37.0); Mean Corpuscular Hgb 27.1 pg (27.0-31.0); Mean Corpuscular Volume 89.7 fL (81.0-99.0); Mean Platelet Volume 11.3 fL (7.4-10.4); Platelet Count 251 10^3/uL (130-400); Red Blood Cell Count 2.91 10^6/uL (4.20-5.40); White Blood Cell Count 10.2 10^3/uL (4.8-10.8)
[2024-07-03 07:58] LABS: Blood Urea Nitrogen 26 mg/dl (7-17); Calcium 8.8 mg/dl (8.4-10.2); Carbon Dioxide 29 mmol/L (22-30); Chloride 102 mmol/L (98-107); Estimated Creatinine Clearance 13 ml/min; Glucose 90 mg/dl (70-99); Potassium 3.5 mmol/L (3.5-5.1); Sodium 139 mmol/L (135-145); eGFR 25.72
[2024-07-03] MEDS: NON-FORMULARY ITEM 1 UNIT INH (08:14)
[2024-07-03 08:23] VITALS: BP 141/58
[2024-07-03] MEDS: LASIX IV (08:40)
[2024-07-03] MEDS: PROTONIX IV 40 MG IV ×2 (08:42→20:48)
[2024-07-03] MEDS: PLAVIX 75 MG PO (08:42)
[2024-07-03] MEDS: NSS (PRESERVATIVE FREE) 10 ML IV ×2 (08:42→20:48)
[2024-07-03] MEDS: COREG 12.5 MG PO ×2 (08:42→20:47)
[2024-07-03] MEDS: PROCARDIA XL (EXTENDED RELEASE) 90 MG PO (08:42)
--- NOTE | 2024-07-03 10:25 | CM ---
CM spoke with patient physician and patient not medically appropriate for transfer to SNF. CM called to [facility] liaison and update provided re auth and status per physician. CM will continue to follow for discharge planning needs.
Plan; transfer to SNF when medically appropriate.
[2024-07-03 11:47] LABS: Hematocrit 25.9 % (37.0-47.0); Hemoglobin 8.1 g/dL (12.0-16.0); Mean Corp Hgb Conc. 31.3 g/dL (33.0-37.0); Mean Corpuscular Volume 89.6 fL (81.0-99.0); Mean Platelet Volume 11.3 fL (7.4-10.4); Platelet Count 262 10^3/uL (130-400); Red Blood Cell Count 2.89 10^6/uL (4.20-5.40); Red Cell Dist. Width 14.1 % (11.5-14.5); White Blood Cell Count 10.7 10^3/uL (4.8-10.8)
[2024-07-03 12:29] LABS: Blood Urea Nitrogen 23 mg/dl (7-17); Calcium 8.8 mg/dl (8.4-10.2); Carbon Dioxide 30 mmol/L (22-30); Chloride 101 mmol/L (98-107); Estimated Creatinine Clearance 12 ml/min; Glucose 122 mg/dl (70-99); Potassium 3.8 mmol/L (3.5-5.1); Sodium 139 mmol/L (135-145); eGFR 22.81
--- NOTE | 2024-07-03 13:31 | W.PN.HOSP.TC ---
Today's Communication/Plan
-
monitor renal function off diuretics
HSQ
oral vanc
Assessment / Plan
Assessment / Plan
84-year-old woman with past medical history of:
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
hypertension,
hyperlipidemia,
rectal prolapse,
renal artery stenosis,
osteoporosis,
renal stents;
Comes in with abdominal pain associated with bloody diarrhea. Found to have moderate to severe colitis.
A/P:
84-year-old female past medical history of COPD on 4L nasal cannula, hypertension, hyperlipidemia, rectal prolapse, renal artery stenosis, osteoporosis, renal stents; p/w abdominal pain associated with bloody diarrhea. Found to have moderate to
severe colitis.
A/P:
# Sepsis POA 2/2 colitis
=suspect ischemic colitis
stool culture negative, Norovirus negative
C. difficile antigen positive/toxin negative.
No need for Zosyn
Cont PO vancomycin for C diff coverage, total 10 days (12/02)
liberalized low residue diet to regular to help with loss of apatite
Monitor hemoglobin, no obvious acute blood loss anemia this time; blood and diarrhea most likely secondary to inflammation
Appreciate GI and ID input
will need GI outpt eval
#Acute HFpEF
-cxr with pulmonary congestion
-start iv lasix 20mg daily - stopped due to worsening renal function
-ECHO f/u - EF 70%, mild to mod AR
# CORNELIA on CKD stage IIIb
Suspect prerenal secondary to diarrhea versus septic ATN and now overdiuresis
renal US unrevealing: mild bilateral renal atrophy without hydronephrosis. Bilateral renal simple cysts.
-stop Lasix and monitor
# Coronary disease
# History of carotid disease
No active chest pain
Continue aspirin and Plavix for now
# Hypertension
resumed nifedipine
changed LEAD PROJECT ENGINEER Toprol to Coreg for better BP control
IV hydralazine PRN
# Anemia of chronic disease
Continue to monitor hemoglobin for possible acute blood loss anemia
# COPD with chronic hypoxic respiratory failure on 4 L of oxygen at baseline
# Hyperlipidemia
Hold Zetia
# Restless legs
Continue ropinirole, gabapentin
# Osteoporosis
Continue alendronate
Full code
DVT ppx: trial HSQ
Dispo: pt has elected SNF, CM on board to facilitate SNF dispo
IVY RN
Total time spent on today's encounter was 51 minutes which included time spent in counseling the patient/family regarding diagnosis and treatment plan as listed above, goals of care, and symptom management. Case was discussed with nursing staff,
specialists, and care coordinators/case management. All labs and imaging personally reviewed by me. Remainder the time spent in detailed review of previous records, lab data, imaging, and other medical provider documentation.
Anticipated Discharge: 24 - 48 hours
Subjective/Interval History
-
Date of Service: July 03, 2024
respiratory symptoms improved
Objective Data
-
Labs:
Laboratory Results
07/03/24 07/03/24
07:03 11:15
WBC 10.2 10.7
Hgb 7.9 L 8.1 L
Hct 26.1 L 25.9 L
Plt Count 251 262
Sodium 139 139
Potassium 3.5 3.8
Chloride 102 101
Carbon Dioxide 29 30
BUN 26 H 23 H
Creatinine 1.9 H 2.1 H
Glucose 90 122 H
Calcium 8.8 8.8
Vital Signs:
Vital Signs
Temp Pulse Resp BP Pulse Ox
97.5 F 73 18 141/58 94
07/03/24 08:23 07/03/24 08:23 07/03/24 08:23 07/03/24 08:23 07/03/24 08:23
I&O
07/02/24 07/03/24 07/04/24
06:59 06:59 06:59
Intake Total 220 / 220 720 / 720
Output Total 200 / 200 200 / 200
Balance 220 / 220 520 / 520 -200 / -200
Review of Systems
-
History Source: Patient
All other systems: Not reviewed unless documented
Data Reviewed
-
Diagnostic Radiology: Report Reviewed by me
Medical Tests (Nuc Med, Echo etc): Report Reviewed by me
Labs: Labs Reviewed by me
[2024-07-03] MEDS: ASPIR LOW (ENTERIC COATED) 81 MG PO (17:01)
[2024-07-03 17:02] VITALS: BP 135/90
[2024-07-03] MEDS: HEPARIN 5000 UNITS SC (20:46)
[2024-07-03] MEDS: REQUIP 0.5 MG PO (20:47)
[2024-07-03 23:17] VITALS: BP 126/48
[2024-07-04] MEDS: FIRVANQ 125 MG PO ×4 (05:43→23:16)
[2024-07-04 06:00] VITALS: BMI 22.4
[2024-07-04] MEDS: NON-FORMULARY ITEM 1 UNIT INH (07:16)
[2024-07-04 07:30] LABS: Hematocrit 26.6 % (37.0-47.0); Hemoglobin 8.1 g/dL (12.0-16.0); Mean Corp Hgb Conc. 30.5 g/dL (33.0-37.0); Mean Corpuscular Hgb 27.3 pg (27.0-31.0); Mean Corpuscular Volume 89.6 fL (81.0-99.0); Mean Platelet Volume 11.3 fL (7.4-10.4); Platelet Count 251 10^3/uL (130-400); Red Blood Cell Count 2.97 10^6/uL (4.20-5.40); White Blood Cell Count 9.3 10^3/uL (4.8-10.8)
[2024-07-04 07:39] VITALS: BP 153/58
[2024-07-04 07:53] LABS: ALT (SGPT) < 10 U/L (0-35); AST (SGOT) 13 U/L (14-36); Albumin 3.1 g/dl (3.5-5.0); Alkaline Phosphatase 77 U/L (38-126); Blood Urea Nitrogen 25 mg/dl (7-17); Calcium 8.6 mg/dl (8.4-10.2); Carbon Dioxide 29 mmol/L (22-30); Chloride 102 mmol/L (98-107); Estimated Creatinine Clearance 13 ml/min; Glucose 100 mg/dl (70-99); Potassium 3.5 mmol/L (3.5-5.1); Sodium 138 mmol/L (135-145); Total Bilirubin 0.5 mg/dl (0.2-1.3); Total Protein 5.8 g/dl (6.3-8.2); eGFR 24.18
--- NOTE | 2024-07-04 08:48 | W.PN.ID1 ---
Date of Service
Date of Service: July 04, 2024
Today's Communication
Continue with enteral vancomycin.
Assessment / Plan
Diarrhea - improved / resolved
- still with 'mushy' stool
- C. diff tox(+)/Ag(-)
Leukocytosis; quickly resolved
Generalized weakness
Anemia
CKD
COPD
Rectal prolapse
CAD
HTN
Dyslipidemia
Carotid artery disease
Recommendations:
Continue oral vancomycin 125 mg po qid (d#9) to complete 10 day course. Thereafter, observe off antibiotics.
Outpatient GI eval.
Chief Complaint
-: Other (ischemic colitis)
Subjective / Review of Systems
Patient seen and examined. Reports ongoing 'loose' stool, further described as 'mushy', but not liquid. Denies abdominal pain. No fevers or chills.
Vital Signs / Physical Exam
Vital Signs
Vital Signs
Temp Pulse Resp BP Pulse Ox
98 F 68 16 153/58 96
07/04/24 07:39 07/04/24 07:39 07/04/24 07:39 07/04/24 07:39 07/04/24 07:39
Physical Exam
Constitutional: No Acute Distress, Comfortable and Non-toxic
Eyes: Sclera Anicteric
Pulmonary: Clear and Non Labored
Gastrointestinal: Soft and Non Distended
Skin: Negative Rash or Jaundice
Neurological: Awake and Alert
Psychological: Calm
Objective Data
Lab Data
Lab Results
07/04/24 07:19
07/04/24 07:19
Estimated Creat Clear 13 ml/min 07/04/24 07:19
Lactic Acid 0.9 mmol/L (0.7-2.0) 06/23/24 10:38
Total Bilirubin 0.5 mg/dl (0.2-1.3) 07/04/24 07:19
AST 13 U/L (14-36) L 07/04/24 07:19
ALT < 10 U/L (0-35) 07/04/24 07:19
Alkaline Phosphatase 77 U/L (38-126) 07/04/24 07:19
C-Reactive Protein 52.80 mg/L (0.0-10.00) H 06/28/24 06:15
Most recent labs reviewed.
Micro Results:
06/23/24 10:38 Blood Culture - Final
Blood/Venous No Growth - Final Report
06/23/24 10:38 Blood Culture - Final
Blood/Venous No Growth - Final Report
06/24/24 14:43 - Final
Feces/Stool NO YERSINIA SPECIES ISOLATED
Stool Leukocytes - Final
06/24/24 14:43 Salmonella/Shigella Culture - Final
Feces/Stool No Salmonella, Shigella, Aeromonas or Plesiomonas species
isolated.
Campylobacter Culture - Final
No Campylobacter species isolated.
Shiga Toxin Test - Final
No E. coli Shiga Toxin 1 or 2 detected.
06/24/24 12:07 C. difficile GDH Antigen & Toxins - Final
Feces/Stool C. difficile antigen positive, toxin negative.
Clostridium difficile present, but toxin not detected.
Patient may be a carrier, colonized with nontoxinogenic
strain or the level of toxin in sample is below detection
limits. This information should be used in conjunction with
the patient's clinical history.
- Final
Negative for Norovirus GI and GII.
Imaging:
06/23/2024 CT abdomen/pelvis without contrast: Moderate to severe colitis of the descending colon, with a differential diagnosis of infectious versus inflammatory versus ischemic.
09/05/2022 CT abdomen/pelvis without IV contrast: Findings suggestive of mild diffuse colitis throughout the transverse, descending and sigmoid colon. Findings are nonspecific and likely of infectious/inflammatory etiology
[2024-07-04] MEDS: PROTONIX IV 40 MG IV ×2 (09:58→20:28)
[2024-07-04] MEDS: HEPARIN 5000 UNITS SC ×2 (09:58→20:28)
[2024-07-04] MEDS: COREG 12.5 MG PO ×2 (09:58→20:28)
[2024-07-04] MEDS: NSS (PRESERVATIVE FREE) 10 ML IV ×2 (09:58→20:28)
[2024-07-04] MEDS: PLAVIX 75 MG PO (09:58)
[2024-07-04] MEDS: PROCARDIA XL (EXTENDED RELEASE) 90 MG PO (09:58)
--- NOTE | 2024-07-04 12:24 | W.PN.HOSP.TC ---
Today's Communication/Plan
-
monitor scr
enteral vanc
Assessment / Plan
Assessment / Plan
84-year-old woman with past medical history of:
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
hypertension,
hyperlipidemia,
rectal prolapse,
renal artery stenosis,
osteoporosis,
renal stents;
Comes in with abdominal pain associated with bloody diarrhea. Found to have moderate to severe colitis.
A/P:
84-year-old female past medical history of COPD on 4L nasal cannula, hypertension, hyperlipidemia, rectal prolapse, renal artery stenosis, osteoporosis, renal stents; p/w abdominal pain associated with bloody diarrhea. Found to have moderate to
severe colitis.
A/P:
# Sepsis POA 2/2 colitis
suspect ischemic colitis
stool culture negative, Norovirus negative
C. difficile antigen positive/toxin negative.
No need for Zosyn
Cont PO vancomycin for C diff coverage, total 10 days (01/02)
liberalized low residue diet to regular to help with loss of apatite
Monitor hemoglobin, no obvious acute blood loss anemia this time; blood and diarrhea most likely secondary to inflammation
Appreciate GI and ID input
will need GI outpt eval
#Acute HFpEF
-cxr with pulmonary congestion
-start iv lasix 20mg daily - stopped due to worsening renal function
-ECHO f/u - EF 70%, mild to mod AR
# CORNELIA on CKD stage IIIb
Suspect prerenal secondary to diarrhea versus septic ATN and now overdiuresis
renal US unrevealing: mild bilateral renal atrophy without hydronephrosis. Bilateral renal simple cysts.
-stop Lasix and monitor - still cont to monitor
# Coronary disease
# History of carotid disease
No active chest pain
Continue aspirin and Plavix for now
# Hypertension
resumed nifedipine
changed CALL CENTER ANALYST Toprol to Coreg for better BP control
IV hydralazine PRN
# Anemia of chronic disease
Continue to monitor hemoglobin for possible acute blood loss anemia
# COPD with chronic hypoxic respiratory failure on 4 L of oxygen at baseline
# Hyperlipidemia
Hold Zetia
# Restless legs
Continue ropinirole, gabapentin
# Osteoporosis
Continue alendronate
Full code
DVT ppx: trial HSQ
Dispo: pt has elected SNF, CM on board to facilitate SNF dispo
DW RN
Anticipated Discharge: Within 24 hours
Subjective/Interval History
-
Date of Service: July 04, 2024
No acute events overnight, no respiratory symptoms
Objective Data
-
Labs:
Laboratory Results
07/04/24
07:19
WBC 9.3
Hgb 8.1 L
Hct 26.6 L
Plt Count 251
Sodium 138
Potassium 3.5
Chloride 102
Carbon Dioxide 29
BUN 25 H
Creatinine 2.0 H
Glucose 100 H
Calcium 8.6
Total Bilirubin 0.5
AST 13 L
ALT < 10
Alkaline Phosphatase 77
Vital Signs:
Vital Signs
Temp Pulse Resp BP Pulse Ox
98 F 68 16 153/58 96
07/04/24 07:39 07/04/24 07:39 07/04/24 07:39 07/04/24 07:39 07/04/24 07:39
I&O
07/03/24 07/04/24 07/05/24
06:59 06:59 06:59
Intake Total 720 / 720 720 / 720 240 / 240
Output Total 200 / 200 800 / 800
Balance 520 / 520 -80 / -80 240 / 240
Review of Systems
-
History Source: Patient
All other systems: Not reviewed unless documented
Physical Exam
-
General: Well Developed, Well Nourished, No Apparent Distress and Comfortable
HEENT: Normocephalic, Atraumatic, Nose Appears Normal, Ears Appear Normal and Hearing Impaired
Respiratory: Clear to Auscultation and Other (uses chronic oxygen)
Cardiac: Regular Rhythm and S1/S2
GI: Soft
Musculoskeletal: No Clubbing and No Cyanosis
Skin: Warm and Dry
Neuro: Awake, Alert and Oriented
Psych: Calm
Data Reviewed
-
Diagnostic Radiology: Report Reviewed by me
Medical Tests (Nuc Med, Echo etc): Report Reviewed by me
Labs: Labs Reviewed by me
[2024-07-04 14:59] VITALS: BP 120/50; O2SAT 95
[2024-07-04] MEDS: ASPIR LOW (ENTERIC COATED) 81 MG PO (18:10)
[2024-07-04] MEDS: REQUIP 0.5 MG PO (20:38)
[2024-07-04 23:40] VITALS: BP 145/48
[2024-07-05] MEDS: FIRVANQ 125 MG PO ×2 (05:39→12:29)
[2024-07-05] MEDS: NON-FORMULARY ITEM 1 UNIT INH (07:30)
[2024-07-05 07:31] VITALS: BP 134/54
[2024-07-05 07:50] LABS: Hematocrit 25.3 % (37.0-47.0); Hemoglobin 7.9 g/dL (12.0-16.0); Mean Corp Hgb Conc. 31.2 g/dL (33.0-37.0); Mean Corpuscular Hgb 27.6 pg (27.0-31.0); Mean Corpuscular Volume 88.5 fL (81.0-99.0); Mean Platelet Volume 11.3 fL (7.4-10.4); Platelet Count 253 10^3/uL (130-400); Red Blood Cell Count 2.86 10^6/uL (4.20-5.40); Red Cell Dist. Width 13.7 % (11.5-14.5); White Blood Cell Count 8.8 10^3/uL (4.8-10.8)
[2024-07-05] MEDS: PLAVIX 75 MG PO (08:08)
[2024-07-05] MEDS: PROCARDIA XL (EXTENDED RELEASE) 90 MG PO (08:08)
[2024-07-05] MEDS: NSS (PRESERVATIVE FREE) 10 ML IV ×2 (08:08→20:32)
[2024-07-05] MEDS: HEPARIN 5000 UNITS SC ×2 (08:08→20:32)
[2024-07-05] MEDS: PROTONIX IV 40 MG IV ×2 (08:09→20:32)
[2024-07-05] MEDS: COREG 12.5 MG PO ×2 (08:09→20:32)
--- NOTE | 2024-07-05 08:34 | CM ---
CM reviewed medical records. CM awaiting discharge update.
[2024-07-05 08:47] LABS: ALT (SGPT) < 10 U/L (0-35); AST (SGOT) 13 U/L (14-36); Alkaline Phosphatase 78 U/L (38-126); Blood Urea Nitrogen 28 mg/dl (7-17); Calcium 8.6 mg/dl (8.4-10.2); Carbon Dioxide 27 mmol/L (22-30); Chloride 103 mmol/L (98-107); Estimated Creatinine Clearance 12 ml/min; Glucose 91 mg/dl (70-99); Potassium 3.8 mmol/L (3.5-5.1); Sodium 138 mmol/L (135-145); Total Bilirubin 0.3 mg/dl (0.2-1.3); Total Protein 5.7 g/dl (6.3-8.2); eGFR 22.81
--- NOTE | 2024-07-05 11:57 | W.PN.HOSP.TC ---
Today's Communication/Plan
-
PVR 85 cc
Monitor renal function
Nephrology consulted
Renal and bladder ultrasound
Assessment / Plan
Assessment / Plan
84-year-old woman with past medical history of:
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
hypertension,
hyperlipidemia,
rectal prolapse,
renal artery stenosis,
osteoporosis,
renal stents;
Comes in with abdominal pain associated with bloody diarrhea. Found to have moderate to severe colitis.
A/P:
84-year-old female past medical history of COPD on 4L nasal cannula, hypertension, hyperlipidemia, rectal prolapse, renal artery stenosis, osteoporosis, renal stents; p/w abdominal pain associated with bloody diarrhea. Found to have moderate to
severe colitis.
A/P:
# Sepsis POA 2/2 colitis
suspect ischemic colitis
stool culture negative, Norovirus negative
C. difficile antigen positive/toxin negative.
No need for Zosyn
Cont PO vancomycin for C diff coverage, total 10 days (02/01)
liberalized low residue diet to regular to help with loss of appetite
Monitor hemoglobin, no obvious acute blood loss anemia this time; blood and diarrhea most likely secondary to inflammation
Appreciate GI and ID input
will need GI outpt eval
#Acute HFpEF
-cxr with pulmonary congestion
-start iv lasix 20mg daily - stopped due to worsening renal function
-ECHO f/u - EF 70%, mild to mod AR
# CORNELIA on CKD stage IIIb
Suspect prerenal secondary to diarrhea versus septic ATN and now overdiuresis
renal US unrevealing: mild bilateral renal atrophy without hydronephrosis. Bilateral renal simple cysts.
-stop Lasix and monitor - still cont to monitor
�Nephrology consulted
�PVR 85 cc
� Renal ultrasound
# Coronary disease
# History of carotid disease
No active chest pain
Continue aspirin and Plavix for now
# Hypertension
resumed nifedipine
changed DIVIDEND CLERK Toprol to Coreg for better BP control
IV hydralazine PRN
# Anemia of chronic disease
Continue to monitor hemoglobin for possible acute blood loss anemia
# COPD with chronic hypoxic respiratory failure on 4 L of oxygen at baseline
# Hyperlipidemia
Hold Zetia
# Restless legs
Continue ropinirole, gabapentin
# Osteoporosis
Continue alendronate
Full code
DVT ppx: trial HSQ
Dispo: pt has elected SNF, CM on board to facilitate SNF dispo
DW RN
Total time spent on today's encounter was 50 minutes which included time spent in counseling the patient/family regarding diagnosis and treatment plan as listed above, goals of care, and symptom management. Case was discussed with nursing staff,
specialists, and care coordinators/case management. All labs and imaging personally reviewed by me. Remainder the time spent in detailed review of previous records, lab data, imaging, and other medical provider documentation.
Anticipated Discharge: 24 - 48 hours
Subjective/Interval History
-
Date of Service: July 05, 2024
No acute events overnight
Objective Data
-
Labs:
Laboratory Results
07/05/24
07:28
WBC 8.8
Hgb 7.9 L
Hct 25.3 L
Plt Count 253
Sodium 138
Potassium 3.8
Chloride 103
Carbon Dioxide 27
BUN 28 H
Creatinine 2.1 H
Glucose 91
Calcium 8.6
Total Bilirubin 0.3
AST 13 L
ALT < 10
Alkaline Phosphatase 78
Vital Signs:
Vital Signs
Temp Pulse Resp BP Pulse Ox
98.1 F 86 16 134/54 98
07/05/24 07:31 07/05/24 07:37 07/05/24 07:37 07/05/24 07:31 07/05/24 07:37
I&O
07/04/24 07/05/24 07/06/24
06:59 06:59 06:59
Intake Total 720 / 720 1100 / 1100 240 / 240
Output Total 800 / 800
Balance -80 / -80 1100 / 1100 240 / 240
Review of Systems
-
History Source: Patient
All other systems: Not reviewed unless documented
Data Reviewed
-
Diagnostic Radiology: Report Reviewed by me
Medical Tests (Nuc Med, Echo etc): Report Reviewed by me
Labs: Labs Reviewed by me
--- NOTE | 2024-07-05 15:14 | CM ---
Cm reviewed medical records. Patient remains acutely ill. CM will continue to follow as needed.
[2024-07-05 15:20] VITALS: BP 153/60
--- NOTE | 2024-07-05 16:15 | W.PN.ID1 ---
Date of Service
Date of Service: July 05, 2024
Today's Communication
Sign off
Assessment / Plan
Diarrhea - improved / resolved
- still with 'mushy' stool. no liquid stooling
- C. diff tox(+)/Ag(-)
Leukocytosis; quickly resolved
Generalized weakness
Anemia
CKD
COPD
Rectal prolapse
CAD
HTN
Dyslipidemia
Carotid artery disease
Recommendations:
Completing 10-day course of vancomycin today. Thereafter, observe off antibiotics.
Nothing further to add from a Infectious Diseases standpoint.
Will see again at your request.
����������������������������������������������������������
Chief Complaint
-: Other (ischemic colitis)
Subjective / Review of Systems
Review of Systems: No Fever, No Chills, No Abdominal Pain and No Diarrhea
Vital Signs / Physical Exam
Vital Signs
Vital Signs
Temp Pulse Resp BP Pulse Ox
98.3 F 75 17 153/60 96
07/05/24 15:20 07/05/24 15:20 07/05/24 15:20 07/05/24 15:20 07/05/24 15:20
Physical Exam
Constitutional: No Acute Distress, Comfortable and Non-toxic
Eyes: Sclera Anicteric
Pulmonary: Clear and Non Labored
Gastrointestinal: Soft and Non Distended
Skin: Negative Rash or Jaundice
Neurological: Awake and Alert
Psychological: Calm
Objective Data
Lab Data
Lab Results
07/05/24 07:28
07/05/24 07:28
Estimated Creat Clear 12 ml/min 07/05/24 07:28
Lactic Acid 0.9 mmol/L (0.7-2.0) 06/23/24 10:38
Total Bilirubin 0.3 mg/dl (0.2-1.3) 07/05/24 07:28
AST 13 U/L (14-36) L 07/05/24 07:28
ALT < 10 U/L (0-35) 07/05/24 07:28
Alkaline Phosphatase 78 U/L (38-126) 07/05/24 07:28
C-Reactive Protein 52.80 mg/L (0.0-10.00) H 06/28/24 06:15
Most recent labs reviewed.
Micro Results:
06/23/24 10:38 Blood Culture - Final
Blood/Venous No Growth - Final Report
06/23/24 10:38 Blood Culture - Final
Blood/Venous No Growth - Final Report
06/24/24 14:43 - Final
Feces/Stool NO YERSINIA SPECIES ISOLATED
Stool Leukocytes - Final
06/24/24 14:43 Salmonella/Shigella Culture - Final
Feces/Stool No Salmonella, Shigella, Aeromonas or Plesiomonas species
isolated.
Campylobacter Culture - Final
No Campylobacter species isolated.
Shiga Toxin Test - Final
No E. coli Shiga Toxin 1 or 2 detected.
06/24/24 12:07 C. difficile GDH Antigen & Toxins - Final
Feces/Stool C. difficile antigen positive, toxin negative.
Clostridium difficile present, but toxin not detected.
Patient may be a carrier, colonized with nontoxinogenic
strain or the level of toxin in sample is below detection
limits. This information should be used in conjunction with
the patient's clinical history.
- Final
Negative for Norovirus GI and GII.
Imaging:
06/23/2024 CT abdomen/pelvis without contrast: Moderate to severe colitis of the descending colon, with a differential diagnosis of infectious versus inflammatory versus ischemic.
09/05/2022 CT abdomen/pelvis without IV contrast: Findings suggestive of mild diffuse colitis throughout the transverse, descending and sigmoid colon. Findings are nonspecific and likely of infectious/inflammatory etiology
--- NOTE | 2024-07-05 16:46 | W.CON.NEPH ---
Consultation
-
Date/Time Consultation Requested: 07/05/24 1115
Date/Time Consultation Performed: 07/05/24 1630
Requesting Provider: Krishna Delgado
Performing Provider: Reanna Carroll
Reason for Consultation: CORNELIA with CKD
Medical History
-
Chief Complaint: bloody diarrhea
History of Present Illness:
84-year-old female past medical history of COPD on 4-5 L nasal cannula, hypertension on Nifedipine, metoprolol, hyperlipidemia on Zetia, rectal prolapse, renal artery stenosis s/p renal stent, CKD [address] Yarbrough, osteoporosis on Fosamax,
presented to ER on 06/23 with abdominal pain associated with bloody diarrhea. CT abdomen with moderate to severe colitis of descending colon. She He is seen by GI as well as infectious disease and felt to have ischemic colitis however she also has a
C. difficile antigen positive. She initially received 3 day course of Zosyn and currently on oral vancomycin. I'll admit her creatinine was at 2.1 from baseline 1.5. This subsequently improved to 1.5 on 01 July. However since then and creatinine
slowly increasing trend hence nephrology consultation. Patient reports Having little short of breath from baseline, cough. She received Lasix 2 days ago. Denies any more diarrhea, has mushy stool. Abdominal pain has improved. Denies any
dysuria. No nausea or vomiting or chest pain. No dizziness.
Past Medical History
COPD on 4 L baseline, rectal prolapse, coronary artery disease, hypertension, hypercholesterolemia, carotid artery disease
Past Surgical History: Gynecological (hysterectomy) and Other (renal stent)
Social History
Tobacco: Non-Smoker
Alcohol: None
Drug: None
Family History
no ckd
Family History: Not Pertinent
Allergies / Home Medications
Allergy/AdvReac Type Severity Reaction Status Date / Time
No Known Allergies Allergy Verified 06/23/24 08:27
�Medication �Instructions �Recorded �Confirmed �Type
alendronate 70 mg tablet (Fosamax) 70 mg PO MO osteoporosis 09/02/22 06/23/24 History
aspirin 81 mg tablet,delayed 81 mg PO QPM Blood clot 09/02/22 06/23/24 History
release prevention/tx
clopidogrel 75 mg tablet (Plavix) 75 mg PO DAILY Blood clot 09/02/22 06/23/24 History
prevention/tx
ezetimibe 10 mg tablet (Zetia) 10 mg PO QPM High cholesterol 09/02/22 06/23/24 History
nifedipine 90 mg tablet,extended 90 mg PO DAILY Blood pressure 09/02/22 06/23/24 History
release 24 hr
ropinirole 0.5 mg tablet 0.5 mg PO HSPRN PRN rts 09/02/22 06/23/24 History
metoprolol succinate 25 mg 25 mg PO HS 06/23/24 06/23/24 History
tablet,extended release 24 hr
(Toprol XL)
fluticasone fur. 100 mcg-umeclid 1 inh inhalation DAILY 06/26/24 06/26/24 History
62.5 mcg-vilant 25 mcg
inhalat.powder (Trelegy Ellipta)
Review of Systems
-
all complete 12 point review of system have been inquired and found negative other than stated in HPI
Physical Exam
Vital Signs
Vital Signs
Temp Pulse Resp BP Pulse Ox
98.3 F 75 17 153/60 96
07/05/24 15:20 07/05/24 15:20 07/05/24 15:20 07/05/24 15:20 07/05/24 15:20
Lab Results
WBC 8.8 10^3/uL (4.8-10.8) 07/05/24 07:28
RBC 2.86 10^6/uL (4.20-5.40) L 07/05/24 07:28
Hgb 7.9 g/dL (12.0-16.0) L 07/05/24 07:28
Hct 25.3 % (37.0-47.0) L 07/05/24 07:28
Plt Count 253 10^3/uL (130-400) 07/05/24 07:28
Sodium 138 mmol/L (135-145) 07/05/24 07:28
Potassium 3.8 mmol/L (3.5-5.1) 07/05/24 07:28
Chloride 103 mmol/L (98-107) 07/05/24 07:28
Carbon Dioxide 27 mmol/L (22-30) 07/05/24 07:28
BUN 28 mg/dl (7-17) H 07/05/24 07:28
Creatinine 2.1 mg/dL (0.6-1.0) H 07/05/24 07:28
eGFR 22.81 07/05/24 07:28
Glucose 91 mg/dl (70-99) 07/05/24 07:28
Calcium 8.6 mg/dl (8.4-10.2) 07/05/24 07:28
Albumin 3.0 g/dl (3.5-5.0) L 07/05/24 07:28
Physical Exam
General: Awake, Alert, Oriented, AOx3, No Distress and Nontoxic
HEENT: EOMI, Anicteric, Conjunctivae Clear and Facial Symmetry
Respiratory: Crackels (at bases), Normal Excursion, Nonlabored Respirations and Other (decreased breath sounds)
Cardiac: S1/S2 and Regular Rate/Rhythm
Breast: Deferred by me
Abdomen: Soft, Nontender and Nondistended
Musculoskeletal: No Cyanosis and No Edema
Skin: No Rash
Neuro: Nonfocal/Grossly Intact
Psych: Mood/afflect pleasant, Insight/judgement good and Appropriate
Data Reviewed
-
Radiology: Report Reviewed by me and Discussed with Patient
Labs: Labs Reviewed by me and Discussed with Patient
Assessment/Plan
-
IMP:
Sepsis POA 2/2 colitis
suspect ischemic colitis
C. difficile antigen positive/toxin negative.
Acute HFpEF-ECHO f/u - EF 70%, mild to mod AR
CORNELIA on CKD stage IIIb-BASELINE CR 1.5? Dr Yarbrough
Coronary disease
History of carotid disease
Hypertension
Anemia of chronic disease
COPD with chronic hypoxic respiratory failure on 4-5 L of oxygen at baseline
Hyperlipidemia
Restless legs
Osteoporosis
PLan:
A/w bloody diarrhea-felt to have ischemic colitis, C diff antigen +ve
CORNELIA-recurrent, baseline cr felt to be 1.5
check UA, U eosinophils, bladder scan only 85cc
known h/o renal stent-follow renal US
bP stable with out hypotension, cont home meds
follow h/h
cont to hold lasix , she seem to be on chr home O2
labs in am
d/w pt
[2024-07-05] MEDS: ASPIR LOW (ENTERIC COATED) 81 MG PO (18:15)
[2024-07-05] MEDS: REQUIP 0.5 MG PO (20:37)
[2024-07-05 23:00] VITALS: BP 129/82
--- NOTE | 2024-07-06 07:10 | PTCARENOTE ---
Per Infection Prevention, patient can be transitioned from enhanced precautions to standard precautions.
--- NOTE | 2024-07-06 07:13 | W.PN.HOSP.TC ---
Today's Communication/Plan
-
Monitor renal function -- Cr still has not improved much
Nephrology consulted and recommendations appreciated
Renal and bladder ultrasound still pending
Assessment / Plan
Assessment / Plan
Physical Exam
Constitutional: No Acute Distress, Comfortable and Non-toxic
Eyes: Sclera Anicteric
Pulmonary: Clear and Non Labored
Gastrointestinal: Soft and Non Distended. Positive bowel sounds.
Skin: Warm. Dry.
Neurological: Awake and Alert
Psychological: Calm
Assessment/Plan
84-year-old woman with past medical history of:
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
hypertension,
hyperlipidemia,
rectal prolapse,
renal artery stenosis,
osteoporosis,
renal stents;
Comes in with abdominal pain associated with bloody diarrhea. Found to have moderate to severe colitis.
84-year-old female past medical history of COPD on 4L nasal cannula, hypertension, hyperlipidemia, rectal prolapse, renal artery stenosis, osteoporosis, renal stents; p/w abdominal pain associated with bloody diarrhea. Found to have moderate to
severe colitis.
A/P:
# Sepsis POA 2/2 colitis
suspect ischemic colitis
stool culture negative, Norovirus negative
C. difficile antigen positive/toxin negative.
No need for Zosyn
Completed PO vancomycin for C diff coverage
Low residue diet was previously liberalized to regular to help with loss of appetite
Monitor hemoglobin, no obvious acute blood loss anemia this time; blood and diarrhea most likely secondary to inflammation
Appreciate GI and ID input
will need GI outpt eval
#Acute HFpEF
-cxr with pulmonary congestion
-Previously IV Lasix 20mg daily was started - now stopped due to worsening renal function
-ECHO f/u - EF 70%, mild to mod AR
# CORNELIA on CKD stage IIIb
Suspect prerenal secondary to diarrhea versus septic ATN and now overdiuresis
renal US unrevealing: mild bilateral renal atrophy without hydronephrosis. Bilateral renal simple cysts.
-previously Lasix stopped and monitor - still cont to monitor
�Nephrology consulted
�PVR 85 cc
� Renal ultrasound still pending
# Coronary disease
# History of carotid disease
No active chest pain
Continue aspirin and Plavix for now
# Hypertension
resumed nifedipine
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
IV hydralazine PRN
# Anemia of chronic disease
Continue to monitor hemoglobin for possible acute blood loss anemia
# COPD with chronic hypoxic respiratory failure on 4 L of oxygen at baseline
# Hyperlipidemia
Hold Zetia
# Restless legs
Continue ropinirole, gabapentin
# Osteoporosis
Continue alendronate
Full code
DVT ppx: trial HSQ
Dispo: pt has elected SNF, CM on board to facilitate SNF dispo
DW RN
Anticipated Discharge: 24 - 48 hours
Subjective/Interval History
-
Date of Service: July 06, 2024
Patient was seen and examined. She denied any significant complaints.
Objective Data
-
Labs:
Laboratory Results
07/06/24
06:00
WBC Pending
Hgb Pending
Hct Pending
Plt Count Pending
Sodium Pending
Potassium Pending
Chloride Pending
Carbon Dioxide Pending
BUN Pending
Creatinine Pending
Glucose Pending
Calcium Pending
Total Bilirubin Pending
AST Pending
ALT Pending
Alkaline Phosphatase Pending
Vital Signs:
Vital Signs
Temp Pulse Resp BP Pulse Ox
98.8 F 66 18 129/82 100
07/05/24 23:00 07/05/24 23:00 07/05/24 23:00 07/05/24 23:00 07/05/24 23:00
I&O
07/05/24 07/06/24 07/07/24
06:59 06:59 06:59
Intake Total 1100 / 1100 840 / 840
Output Total 600 / 600
Balance 1100 / 1100 240 / 240
[2024-07-06 07:47] VITALS: BP 136/72
[2024-07-06] MEDS: NON-FORMULARY ITEM 1 UNIT INH (08:15)
[2024-07-06 08:28] LABS: Urine Albumin 3+ (Neg - Trace); Urine Bilirubin Negative (Negative); Urine Character Cloudy (Clear); Urine Color Yellow; Urine Glucose Negative (Negative); Urine Ketone Negative (Negative); Urine Leukocyte 3+ (Negative); Urine Nitrite Negative (Negative); Urine Occult Blood 4+ (Negative); Urine Urobilinogen Negative (Neg - 1+)
[2024-07-06 08:32] LABS: Hematocrit 26.1 % (37.0-47.0); Hemoglobin 8.2 g/dL (12.0-16.0); Mean Corp Hgb Conc. 31.4 g/dL (33.0-37.0); Mean Corpuscular Hgb 28.3 pg (27.0-31.0); Mean Platelet Volume 11.4 fL (7.4-10.4); Platelet Count 272 10^3/uL (130-400); Red Cell Dist. Width 13.6 % (11.5-14.5); White Blood Cell Count 7.8 10^3/uL (4.8-10.8)
[2024-07-06] MEDS: PLAVIX 75 MG PO (08:35)
[2024-07-06] MEDS: PROCARDIA XL (EXTENDED RELEASE) 90 MG PO (08:35)
[2024-07-06] MEDS: NSS (PRESERVATIVE FREE) 10 ML IV ×2 (08:38→20:34)
[2024-07-06] MEDS: COREG 12.5 MG PO ×2 (08:38→20:34)
[2024-07-06] MEDS: HEPARIN 5000 UNITS SC ×2 (08:39→20:34)
[2024-07-06] MEDS: PROTONIX IV 40 MG IV ×2 (08:39→20:34)
[2024-07-06 09:35] LABS: ALT (SGPT) < 10 U/L (0-35); AST (SGOT) 14 U/L (14-36); Alkaline Phosphatase 77 U/L (38-126); Blood Urea Nitrogen 28 mg/dl (7-17); Calcium 8.5 mg/dl (8.4-10.2); Carbon Dioxide 31 mmol/L (22-30); Chloride 103 mmol/L (98-107); Estimated Creatinine Clearance 13 ml/min; Glucose 91 mg/dl (70-99); Potassium 3.7 mmol/L (3.5-5.1); Sodium 140 mmol/L (135-145); Total Bilirubin 0.2 mg/dl (0.2-1.3); Total Protein 5.8 g/dl (6.3-8.2); eGFR 25.72
[2024-07-06 10:02] LABS: Body Fluid for Eosinophils 1%
[2024-07-06 10:21] LABS: Urine Amorphous Seen; Urine Squamous Cell 16-20 /LPF (Few)
[2024-07-06 10:24] LABS: Urine Red Blood Cell 21-25 /HPF (0-2)
[2024-07-06 10:25] LABS: Urine Bacteria Many (Negative); Urine White Cell 90-100 /HPF (0-5)
[2024-07-06 14:48] VITALS: BP 116/47; PULSE 71; O2SAT 90
[2024-07-06 15:34] VITALS: BP 139/52
--- NOTE | 2024-07-06 17:05 | W.PN.NEPH.PH ---
Today's Communication / Plan
-
dc planning
Assessment/Plan
-
IMP:
Sepsis POA 2/2 colitis
suspect ischemic colitis
C. difficile antigen positive/toxin negative.
Acute HFpEF-ECHO f/u - EF 70%, mild to mod AR
CORNELIA on CKD stage IIIb-BASELINE CR 1.5? Dr Yarbrough
Coronary disease
History of carotid disease
Hypertension
Anemia of chronic disease
COPD with chronic hypoxic respiratory failure on 4-5 L of oxygen at baseline
Hyperlipidemia
Restless legs
Osteoporosis
Plan:
pt thinks she is going home
follow BMP
no lasix today
PCP following Cr as outpatient. Pt does not want more doctors
-
-
Date of Service: July 06, 2024
CC / HPI / ROS
-
Chief Complaint:
History of Present Illness:
CORNELIA/Cr down to 1.9
Hgb stable 8.2
BP stable
Review of Systems:
no CP/SOB
Labs
-
Labs:
WBC 7.8 10^3/uL (4.8-10.8) 07/06/24 07:38
RBC 2.90 10^6/uL (4.20-5.40) L 07/06/24 07:38
Hgb 8.2 g/dL (12.0-16.0) L 07/06/24 07:38
Hct 26.1 % (37.0-47.0) L 07/06/24 07:38
Plt Count 272 10^3/uL (130-400) 07/06/24 07:38
Sodium 140 mmol/L (135-145) 07/06/24 07:38
Potassium 3.7 mmol/L (3.5-5.1) 07/06/24 07:38
Chloride 103 mmol/L (98-107) 07/06/24 07:38
Carbon Dioxide 31 mmol/L (22-30) H 07/06/24 07:38
BUN 28 mg/dl (7-17) H 07/06/24 07:38
Creatinine 1.9 mg/dL (0.6-1.0) H 07/06/24 07:38
eGFR 25.72 07/06/24 07:38
Glucose 91 mg/dl (70-99) 07/06/24 07:38
Calcium 8.5 mg/dl (8.4-10.2) 07/06/24 07:38
Albumin 3.0 g/dl (3.5-5.0) L 07/06/24 07:38
Physical Exam
-
Vital Signs:
Vital Signs
Temp Pulse Resp BP Pulse Ox
98.7 F 74 18 139/52 96
07/06/24 15:34 07/06/24 15:34 07/06/24 15:34 07/06/24 15:34 07/06/24 15:34
Cardiovascular:: Regular rate and rhythm
Respiratory:: Bilateral: CTA
Lung Excursion:: Normal
Abdomen:: Nontender and Soft
Bowel Sounds:: Normal
Extremity Edema:: None: Bilateral:
[2024-07-06] MEDS: ASPIR LOW (ENTERIC COATED) 81 MG PO (18:05)
[2024-07-06] MEDS: REQUIP 0.5 MG PO (21:58)
[2024-07-06 23:00] VITALS: BP 163/66
[2024-07-07] MEDS: NON-FORMULARY ITEM 1 UNIT INH (07:21)
[2024-07-07 07:42] LABS: Hematocrit 24.9 % (37.0-47.0); Hemoglobin 7.6 g/dL (12.0-16.0); Mean Corp Hgb Conc. 30.5 g/dL (33.0-37.0); Mean Corpuscular Hgb 27.6 pg (27.0-31.0); Mean Corpuscular Volume 90.5 fL (81.0-99.0); Mean Platelet Volume 10.9 fL (7.4-10.4); Platelet Count 281 10^3/uL (130-400); Red Blood Cell Count 2.75 10^6/uL (4.20-5.40); Red Cell Dist. Width 13.6 % (11.5-14.5); White Blood Cell Count 8.3 10^3/uL (4.8-10.8)
[2024-07-07 07:50] LABS: ALT (SGPT) < 10 U/L (0-35); AST (SGOT) 13 U/L (14-36); Albumin 3.1 g/dl (3.5-5.0); Alkaline Phosphatase 74 U/L (38-126); Blood Urea Nitrogen 28 mg/dl (7-17); Calcium 8.4 mg/dl (8.4-10.2); Carbon Dioxide 32 mmol/L (22-30); Chloride 101 mmol/L (98-107); Estimated Creatinine Clearance 13 ml/min; Glucose 94 mg/dl (70-99); Potassium 3.6 mmol/L (3.5-5.1); Sodium 139 mmol/L (135-145); Total Bilirubin 0.5 mg/dl (0.2-1.3); Total Protein 5.8 g/dl (6.3-8.2); eGFR 25.72
[2024-07-07 07:57] VITALS: BP 152/63
[2024-07-07] MEDS: COREG 12.5 MG PO ×2 (08:04→19:44)
[2024-07-07] MEDS: HEPARIN 5000 UNITS SC ×2 (08:04→19:44)
[2024-07-07] MEDS: NSS (PRESERVATIVE FREE) 10 ML IV ×2 (08:04→19:45)
[2024-07-07] MEDS: PROCARDIA XL (EXTENDED RELEASE) 90 MG PO (08:04)
[2024-07-07] MEDS: PLAVIX 75 MG PO (08:04)
[2024-07-07] MEDS: PROTONIX IV 40 MG IV ×2 (08:05→19:45)
--- NOTE | 2024-07-07 10:23 | W.PN.NEPH.PH ---
Today's Communication / Plan
-
follow BMP
Assessment/Plan
-
IMP:
Sepsis POA 2/2 colitis
suspect ischemic colitis
C. difficile antigen positive/toxin negative.
Acute HFpEF-ECHO f/u - EF 70%, mild to mod AR
CORNELIA on CKD stage IIIb-BASELINE CR 1.5? Dr Yarbrough
Coronary disease
History of carotid disease
Hypertension
Anemia of chronic disease
COPD with chronic hypoxic respiratory failure on 4-5 L of oxygen at baseline
Hyperlipidemia
Restless legs
Osteoporosis
Plan:
follow BMP
no lasix today
-
-
Date of Service: July 07, 2024
CC / HPI / ROS
-
Chief Complaint:
CORNELIA
History of Present Illness:
CORNELIA/Cr stable at 1.9
Hgb down to 7.6
BP stable
Review of Systems:
no CP/SOB
Labs
-
Labs:
WBC 8.3 10^3/uL (4.8-10.8) 07/07/24 07:17
RBC 2.75 10^6/uL (4.20-5.40) L 07/07/24 07:17
Hgb 7.6 g/dL (12.0-16.0) L 07/07/24 07:17
Hct 24.9 % (37.0-47.0) L 07/07/24 07:17
Plt Count 281 10^3/uL (130-400) 07/07/24 07:17
Sodium 139 mmol/L (135-145) 07/07/24 07:17
Potassium 3.6 mmol/L (3.5-5.1) 07/07/24 07:17
Chloride 101 mmol/L (98-107) 07/07/24 07:17
Carbon Dioxide 32 mmol/L (22-30) H 07/07/24 07:17
BUN 28 mg/dl (7-17) H 07/07/24 07:17
Creatinine 1.9 mg/dL (0.6-1.0) H 07/07/24 07:17
eGFR 25.72 07/07/24 07:17
Glucose 94 mg/dl (70-99) 07/07/24 07:17
Calcium 8.4 mg/dl (8.4-10.2) 07/07/24 07:17
Albumin 3.1 g/dl (3.5-5.0) L 07/07/24 07:17
Physical Exam
-
Vital Signs:
Vital Signs
Temp Pulse Resp BP Pulse Ox
98.0 F 68 22 152/63 99
07/07/24 07:57 07/07/24 07:57 07/07/24 07:57 07/07/24 07:57 07/07/24 07:57
Cardiovascular:: Regular rate and rhythm
Respiratory:: Bilateral: Coarse
Lung Excursion:: Normal
Abdomen:: Nontender and Soft
Bowel Sounds:: Normal
Extremity Edema:: None: Bilateral:
--- NOTE | 2024-07-07 12:58 | W.PN.HOSP.TC ---
Today's Communication/Plan
-
see A/P
Assessment / Plan
Assessment / Plan
84-year-old woman with past medical history of:
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
hypertension,
hyperlipidemia,
rectal prolapse,
renal artery stenosis,
osteoporosis,
renal stents;
p/w abdominal pain associated with bloody diarrhea. Found to have moderate to severe colitis.
Assessment/Plan
# Sepsis POA 2/ colitis
suspect ischemic colitis
stool culture negative, Norovirus negative
C. difficile antigen positive/toxin negative.
No need for Zosyn
Completed PO vancomycin for C diff coverage
Low residue diet liberalized to regular to help with loss of appetite
Monitor hemoglobin, no obvious acute blood loss anemia this time
Appreciate GI and ID input
will need GI outpt eval
# Acute HFpEF
CXR with pulmonary congestion
Previously IV Lasix 20mg daily was started - now stopped due to worsening renal function
ECHO f/u - EF 70%, mild to mod AR
# CORNELIA on CKD stage IIIb
Suspect prerenal secondary to diarrhea versus ATN and now overdiuresis
renal US unrevealing: mild bilateral renal atrophy without hydronephrosis. Bilateral renal simple cysts.
Lasix stopped
SCr 1.9 from baseline 1.5
Nephrology on board
repeat renal US was ordered , can check while awaiting for SNF
d/w renal, OK for Dispo to SNF
# Coronary disease
# History of carotid disease
No active chest pain
Continue aspirin and Plavix for now
# Hypertension
resumed nifedipine
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
IV hydralazine PRN
# Anemia of chronic disease
Continue to monitor hemoglobin for possible acute blood loss anemia
# COPD with chronic hypoxic respiratory failure on 4 L of oxygen at baseline
# Hyperlipidemia
Hold Zetia
# Restless legs
Continue ropinirole, gabapentin
# Osteoporosis
Continue alendronate
Full code
DVT ppx: trial HSQ
Dispo: SNF
DW RN , CM
DW Renal
Anticipated Discharge: 24 - 48 hours
Subjective/Interval History
-
Date of Service: July 07, 2024
Objective Data
-
Labs:
Laboratory Results
07/07/24
07:17
WBC 8.3
Hgb 7.6 L
Hct 24.9 L
Plt Count 281
Sodium 139
Potassium 3.6
Chloride 101
Carbon Dioxide 32 H
BUN 28 H
Creatinine 1.9 H
Glucose 94
Calcium 8.4
Total Bilirubin 0.5
AST 13 L
ALT < 10
Alkaline Phosphatase 74
Vital Signs:
Vital Signs
Temp Pulse Resp BP Pulse Ox
36.7 C 68 22 152/63 99
07/07/24 07:57 07/07/24 07:57 07/07/24 07:57 07/07/24 07:57 07/07/24 07:57
I&O
07/06/24 07/07/24 07/08/24
06:59 06:59 06:59
Intake Total 840 / 840 180 / 180
Output Total 600 / 600
Balance 240 / 240 180 / 180
Review of Systems
-
History Source: Patient
All other systems: Reviewed and negative
Physical Exam
-
General: Well Developed, Well Nourished, No Apparent Distress and Comfortable
HEENT: Normocephalic, Atraumatic, Nose Appears Normal, Ears Appear Normal and Hearing Impaired
Respiratory: Clear to Auscultation and Other (uses chronic oxygen)
Cardiac: Regular Rhythm and S1/S2
GI: Soft
Musculoskeletal: No Clubbing and No Cyanosis
Skin: Warm and Dry
Neuro: Awake, Alert and Oriented
Psych: Calm and Intact Judgement/Insight
Data Reviewed
-
Diagnostic Radiology: Report Reviewed by me
Medical Tests (Nuc Med, Echo etc): Report Reviewed by me
Labs: Labs Reviewed by me
[2024-07-07 15:33] VITALS: BP 149/57
[2024-07-07] MEDS: ASPIR LOW (ENTERIC COATED) 81 MG PO (18:01)
[2024-07-07] MEDS: REQUIP 0.5 MG PO (21:28)
[2024-07-07 22:57] VITALS: BP 140/59
[2024-07-08 07:02] LABS: Hematocrit 27.3 % (37.0-47.0); Hemoglobin 8.3 g/dL (12.0-16.0); Mean Corp Hgb Conc. 30.4 g/dL (33.0-37.0); Mean Corpuscular Hgb 27.3 pg (27.0-31.0); Mean Corpuscular Volume 89.8 fL (81.0-99.0); Mean Platelet Volume 11.4 fL (7.4-10.4); Platelet Count 315 10^3/uL (130-400); Red Blood Cell Count 3.04 10^6/uL (4.20-5.40); Red Cell Dist. Width 13.8 % (11.5-14.5); White Blood Cell Count 6.5 10^3/uL (4.8-10.8)
[2024-07-08] MEDS: NSS (PRESERVATIVE FREE) 10 ML IV (07:23)
[2024-07-08] MEDS: PROCARDIA XL (EXTENDED RELEASE) 90 MG PO (07:23)
[2024-07-08] MEDS: PLAVIX 75 MG PO (07:23)
[2024-07-08] MEDS: COREG 12.5 MG PO ×2 (07:23→09:58)
[2024-07-08] MEDS: HEPARIN 5000 UNITS SC ×2 (07:23→19:47)
[2024-07-08] MEDS: PROTONIX IV 40 MG IV (07:24)
[2024-07-08 07:25] LABS: Blood Urea Nitrogen 32 mg/dl (7-17); Calcium 8.6 mg/dl (8.4-10.2); Carbon Dioxide 31 mmol/L (22-30); Chloride 101 mmol/L (98-107); Estimated Creatinine Clearance 13 ml/min; Glucose 91 mg/dl (70-99); Potassium 3.9 mmol/L (3.5-5.1); Sodium 139 mmol/L (135-145); eGFR 25.72
[2024-07-08 07:29] VITALS: BP 167/62
[2024-07-08] MEDS: NON-FORMULARY ITEM 1 UNIT INH (07:43)
--- NOTE | 2024-07-08 09:41 | W.PN.NEPH.PH ---
Today's Communication / Plan
-
Increase Coreg
Assessment/Plan
-
IMP:
Sepsis POA 2/2 colitis
suspect ischemic colitis
C. difficile antigen positive/toxin negative.
Acute HFpEF-ECHO f/u - EF 70%, mild to mod AR
CORNELIA on CKD stage IIIb-BASELINE CR 1.5? Dr Yarbrough
Coronary disease
History of carotid disease
Hypertension
Anemia of chronic disease
COPD with chronic hypoxic respiratory failure on 4-5 L of oxygen at baseline
Hyperlipidemia
Restless legs
Osteoporosis
Plan:
follow BMP
no lasix today
Increase carvedilol
Check urinalysis
-
-
Date of Service: July 08, 2024
CC / HPI / ROS
-
Chief Complaint:
CORNELIA
History of Present Illness:
CORNELIA/Cr stable at 1.9 unchanged
Hgb stable 8.3
BP stable high
Review of Systems:
no CP/SOB
Reports cough
Labs
-
Labs:
WBC 6.5 10^3/uL (4.8-10.8) 07/08/24 05:31
RBC 3.04 10^6/uL (4.20-5.40) L 07/08/24 05:31
Hgb 8.3 g/dL (12.0-16.0) L 07/08/24 05:31
Hct 27.3 % (37.0-47.0) L 07/08/24 05:31
Plt Count 315 10^3/uL (130-400) 07/08/24 05:31
Sodium 139 mmol/L (135-145) 07/08/24 05:31
Potassium 3.9 mmol/L (3.5-5.1) 07/08/24 05:31
Chloride 101 mmol/L (98-107) 07/08/24 05:31
Carbon Dioxide 31 mmol/L (22-30) H 07/08/24 05:31
BUN 32 mg/dl (7-17) H 07/08/24 05:31
Creatinine 1.9 mg/dL (0.6-1.0) H 07/08/24 05:31
eGFR 25.72 07/08/24 05:31
Glucose 91 mg/dl (70-99) 07/08/24 05:31
Calcium 8.6 mg/dl (8.4-10.2) 07/08/24 05:31
Albumin 3.1 g/dl (3.5-5.0) L 07/07/24 07:17
Physical Exam
-
Vital Signs:
Vital Signs
Temp Pulse Resp BP Pulse Ox
98.8 F 88 16 167/62 97
07/08/24 07:29 07/08/24 07:46 07/08/24 07:46 07/08/24 07:29 07/08/24 07:46
Cardiovascular:: Regular rate and rhythm
Respiratory:: Bilateral: Coarse
Lung Excursion:: Normal
Abdomen:: Nontender and Soft
Bowel Sounds:: Normal
Extremity Edema:: None: Bilateral:
--- NOTE | 2024-07-08 10:43 | W.PN.HOSP.TC ---
Today's Communication/Plan
-
see A/P
dispo planning to SNF
Assessment / Plan
Assessment / Plan
84-year-old woman with past medical history of:
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
hypertension,
hyperlipidemia,
rectal prolapse,
renal artery stenosis,
osteoporosis,
renal stents;
p/w abdominal pain associated with bloody diarrhea. Found to have moderate to severe colitis.
Assessment/Plan
# Sepsis POA 2/ colitis
suspect ischemic colitis
stool culture negative, Norovirus negative
C. difficile antigen positive/toxin negative.
No need for Zosyn
Completed PO vancomycin for C diff coverage
Low residue diet liberalized to regular to help with loss of appetite
Monitor hemoglobin, no obvious acute blood loss anemia this time
Appreciate GI and ID input
will need GI outpt eval
# Acute HFpEF
CXR with pulmonary congestion
Previously IV Lasix 20mg daily was started - now stopped due to worsening renal function
ECHO f/u - EF 70%, mild to mod AR
# CORNELIA on CKD stage IIIb
Suspect prerenal secondary to diarrhea versus ATN and now overdiuresis
renal US unrevealing: mild bilateral renal atrophy without hydronephrosis. Bilateral renal simple cysts.
Lasix stopped
SCr plateaued at 1.9 from baseline 1.5
Nephrology on board
repeat renal US was ordered , can check while awaiting for SNF
d/w renal, OK for Dispo to SNF
# Coronary disease
# History of carotid disease
No active chest pain
Continue aspirin and Plavix for now
# Hypertension
resumed nifedipine 90 mg daily
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 Increased coreg dose to 25 mg BID
IV hydralazine PRN
# Anemia of chronic disease
Continue to monitor hemoglobin for possible acute blood loss anemia
# COPD with chronic hypoxic respiratory failure on 4 L of oxygen at baseline
# Hyperlipidemia
Hold Zetia
# Restless legs
Continue ropinirole, gabapentin
# Osteoporosis
Continue alendronate
Full code
DVT ppx: trial HSQ
Dispo: SNF
Anticipated Discharge: Within 24 hours
Subjective/Interval History
-
Date of Service: July 08, 2024
Objective Data
-
Labs:
Laboratory Results
07/08/24
05:31
WBC 6.5
Hgb 8.3 L
Hct 27.3 L
Plt Count 315
Sodium 139
Potassium 3.9
Chloride 101
Carbon Dioxide 31 H
BUN 32 H
Creatinine 1.9 H
Glucose 91
Calcium 8.6
Vital Signs:
Vital Signs
Temp Pulse Resp BP Pulse Ox
37.1 C 88 16 167/62 97
07/08/24 07:29 07/08/24 07:46 07/08/24 07:46 07/08/24 07:29 07/08/24 07:46
I&O
07/07/24 07/08/24 07/09/24
06:59 06:59 06:59
Intake Total 180 / 180 240 / 240
Balance 180 / 180 240 / 240
Review of Systems
-
History Source: Patient
All other systems: Reviewed and negative
Physical Exam
-
General: Well Developed, Well Nourished, No Apparent Distress, Comfortable and Conversant
HEENT: Normocephalic, Atraumatic, Nose Appears Normal, Ears Appear Normal and Hearing Impaired
Respiratory: Clear to Auscultation and Other (uses chronic oxygen)
Cardiac: Regular Rhythm and S1/S2
GI: Soft
Musculoskeletal: No Clubbing and No Cyanosis
Skin: Warm and Dry
Neuro: Awake, Alert and Oriented
Psych: Calm and Intact Judgement/Insight
Data Reviewed
-
Diagnostic Radiology: Report Reviewed by me
Medical Tests (Nuc Med, Echo etc): Report Reviewed by me
Labs: Labs Reviewed by me
[2024-07-08 15:54] VITALS: BP 128/49
--- NOTE | 2024-07-08 17:39 | PTCARENOTE ---
Pt c/o L elbow pain. Hematoma noted L medial antecubital fossa likely from phlebotomy attempt this morning. Pt given cold compress.
[2024-07-08] MEDS: ASPIR LOW (ENTERIC COATED) 81 MG PO (17:50)
[2024-07-08 17:55] LABS: Urine Albumin 3+ (Neg - Trace); Urine Bilirubin Negative (Negative); Urine Character Cloudy (Clear); Urine Color Yellow; Urine Glucose Negative (Negative); Urine Ketone Negative (Negative); Urine Leukocyte 3+ (Negative); Urine Nitrite Negative (Negative); Urine Occult Blood 4+ (Negative); Urine Specific Gravity 1.015 (<1.030); Urine Urobilinogen Negative (Neg - 1+)
[2024-07-08 18:26] LABS: Urine Squamous Cell 16-20 /LPF (Few)
[2024-07-08 18:27] LABS: Urine Bacteria Many (Negative); Urine White Cell >100 /HPF (0-5)
[2024-07-08] MEDS: PROTONIX 40 MG PO (19:48)
[2024-07-08] MEDS: COREG 25 MG PO (19:50)
[2024-07-08] MEDS: REQUIP 0.5 MG PO (21:03)
[2024-07-08 22:53] LABS: Urine Albumin 3+ (Neg - Trace); Urine Bilirubin Negative (Negative); Urine Character Cloudy (Clear); Urine Color Yellow; Urine Glucose Negative (Negative); Urine Ketone Negative (Negative); Urine Leukocyte 3+ (Negative); Urine Nitrite Negative (Negative); Urine Occult Blood 4+ (Negative); Urine Specific Gravity 1.015 (<1.030); Urine Urobilinogen Negative (Neg - 1+)
[2024-07-08 23:00] VITALS: BP 167/61
[2024-07-08 23:04] LABS: Urine Bacteria Many (Negative); Urine Red Blood Cell 0-2 /HPF (0-2); Urine White Cell 70-80 /HPF (0-5)
[2024-07-09] VITALS (7 sets, daily range): BP systolic 94–171; BP diastolic 47–66; PULSE 68–74; O2SAT 97–100
[2024-07-09] MEDS: PROCARDIA XL (EXTENDED RELEASE) 90 MG PO (07:23)
[2024-07-09] MEDS: PROTONIX 40 MG PO ×2 (07:24→19:58)
[2024-07-09] MEDS: PLAVIX 75 MG PO (07:24)
[2024-07-09] MEDS: COREG 25 MG PO (07:24)
[2024-07-09] MEDS: HEPARIN 5000 UNITS SC ×2 (07:24→19:59)
[2024-07-09] MEDS: DESENEX/MITRAZOL/ZEASORB 1 APPLIC TOPICAL ×2 (07:25→19:59)
[2024-07-09] MEDS: NON-FORMULARY ITEM 1 UNIT INH (07:30)
--- NOTE | 2024-07-09 10:30 | CM ---
Addendum entered by Tasia Cid 07/09/24 12:34:
[facility], once auth obtained
Report #: [phone]
Fax #: [phone]
Addendum entered by Tasia Cid 07/09/24 11:53:
sppoke to Madai & updated
careport updated
Addendum entered by Tasia Cid 07/09/24 11:49:
tt from hospitalist - plan for d/c tomorrow
[facility] NPI #: [id number], Dr. Nate Meadows NPI #: [id number]
will start auth process
spoke with Madai szymanski & upsR
Original Note:
Patient seen at bedside
Dx: colitis, sepsis
Renal ultrasound today
PT rec SNF
Referral in careport
Spoke with patient/daughter agreeable to [facility]
Will need authorization
PLAN: SNF, pending bed availability, will need to obtain auth
[2024-07-09 10:54] LABS: Blood Urea Nitrogen 32 mg/dl (7-17); Carbon Dioxide 30 mmol/L (22-30); Chloride 100 mmol/L (98-107); Estimated Creatinine Clearance 12 ml/min; Glucose 114 mg/dl (70-99); Potassium 4.4 mmol/L (3.5-5.1); Sodium 139 mmol/L (135-145); eGFR 21.57
--- NOTE | 2024-07-09 11:52 | W.PN.HOSP.TC ---
Today's Communication/Plan
-
see A/P
Assessment / Plan
Assessment / Plan
84-year-old woman with past medical history of:
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
hypertension,
hyperlipidemia,
rectal prolapse,
renal artery stenosis,
osteoporosis,
renal stents;
p/w abdominal pain associated with bloody diarrhea. Found to have moderate to severe colitis.
Assessment/Plan
# Sepsis POA / colitis
suspect ischemic colitis
stool culture negative, Norovirus negative
C. difficile antigen positive/toxin negative.
No need for Zosyn
Completed PO vancomycin for C diff coverage
Low residue diet liberalized to regular to help with loss of appetite
Monitor hemoglobin, no obvious acute blood loss anemia this time
Appreciate GI and ID input
will need GI outpt eval
# Acute HFpEF
CXR with pulmonary congestion
Previously IV Lasix 20mg daily was started - now stopped due to worsening renal function
ECHO f/u - EF 70%, mild to mod AR
# CORNELIA on CKD stage IIIb
Suspect prerenal secondary to diarrhea versus ATN and now overdiuresis
renal US unrevealing: mild bilateral renal atrophy without hydronephrosis. Bilateral renal simple cysts.
Lasix stopped
SCr at 2.2 today, which may be her new baseline
Nephrology on board
repeat renal US was ordered , can check while awaiting for SNF
d/w renal, OK for Dispo to SNF
Follow urine culture (of note, pt denies to new urinary symptoms)
# Coronary disease
# History of carotid disease
No active chest pain
Continue aspirin and Plavix for now
# Hypertension
resumed nifedipine 90 mg daily
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 Increased coreg dose to 25 mg BID
IV hydralazine PRN
# Anemia of chronic disease
Continue to monitor hemoglobin for possible acute blood loss anemia
# COPD with chronic hypoxic respiratory failure on 4 L of oxygen at baseline
# Hyperlipidemia
Hold Zetia
# Restless legs
Continue ropinirole, gabapentin
# Osteoporosis
Continue alendronate
Full code
DVT ppx: trial HSQ
Dispo: SNF
DW CM
Anticipated Discharge: Within 24 hours
Subjective/Interval History
-
Date of Service: July 09, 2024
Objective Data
-
Labs:
Laboratory Results
07/09/24
09:38
Sodium 139
Potassium 4.4
Chloride 100
Carbon Dioxide 30
BUN 32 H
Creatinine 2.2 H
Glucose 114 H
Calcium 9.0
Vital Signs:
Vital Signs
Temp Pulse Resp BP Pulse Ox
36.9 C 75 16 133/55 97
07/09/24 07:26 07/09/24 11:24 07/09/24 07:31 07/09/24 11:24 07/09/24 09:00
I&O
07/08/24 07/09/24 07/10/24
06:59 06:59 06:59
Intake Total 240 / 240
Output Total 180 / 180
Balance 60 / 60
Review of Systems
-
History Source: Patient
All other systems: Reviewed and negative
Physical Exam
-
General: Well Developed, Well Nourished, No Apparent Distress, Comfortable and Conversant
HEENT: Normocephalic, Atraumatic, Nose Appears Normal, Ears Appear Normal and Hearing Impaired
Respiratory: Clear to Auscultation and Other (uses chronic oxygen)
Cardiac: Regular Rhythm and S1/S2
GI: Soft
Musculoskeletal: No Clubbing and No Cyanosis
Skin: Warm and Dry
Neuro: Awake, Alert and Oriented
Psych: Calm and Intact Judgement/Insight
Data Reviewed
-
Diagnostic Radiology: Report Reviewed by me
Medical Tests (Nuc Med, Echo etc): Report Reviewed by me
Labs: Labs Reviewed by me
--- NOTE | 2024-07-09 13:47 | CM ---
authorization received from Junaid at [facility]- authorization # [id number]
Approved senior care level 1.
Approved 7 days.
Start date 07/09/24, LCD/NRD 07/15/24
Updates to [facility] [phone]
--- NOTE | 2024-07-09 14:52 | W.PN.NEPH.PH ---
Today's Communication / Plan
-
abg/xray
Assessment/Plan
-
IMP:
Sepsis POA 2/2 colitis
suspect ischemic colitis
C. difficile antigen positive/toxin negative.
Acute HFpEF-ECHO f/u - EF 70%, mild to mod AR
CORNELIA on CKD stage IIIb-BASELINE CR 1.5? Dr Yarbrough
Coronary disease
History of carotid disease
Hypertension
Anemia of chronic disease
COPD with chronic hypoxic respiratory failure on 4-5 L of oxygen at baseline
Hyperlipidemia
Restless legs
Osteoporosis
Plan:
follow BMP
cr stable
check abg/xray with sob
does not sound like volume or indication for lasix
d/w nurse
-
-
Date of Service: July 09, 2024
CC / HPI / ROS
-
Chief Complaint:
CORNELIA
History of Present Illness:
CORNELIA/Cr stable at 1.9 unchanged
Hgb stable 8.3
BP stable high
Review of Systems:
no CP/SOB
Reports cough
Labs
-
Labs:
WBC 6.5 10^3/uL (4.8-10.8) 07/08/24 05:31
RBC 3.04 10^6/uL (4.20-5.40) L 07/08/24 05:31
Hgb 8.3 g/dL (12.0-16.0) L 07/08/24 05:31
Hct 27.3 % (37.0-47.0) L 07/08/24 05:31
Plt Count 315 10^3/uL (130-400) 07/08/24 05:31
Sodium 139 mmol/L (135-145) 07/09/24 09:38
Potassium 4.4 mmol/L (3.5-5.1) 07/09/24 09:38
Chloride 100 mmol/L (98-107) 07/09/24 09:38
Carbon Dioxide 30 mmol/L (22-30) 07/09/24 09:38
BUN 32 mg/dl (7-17) H 07/09/24 09:38
Creatinine 2.2 mg/dL (0.6-1.0) H 07/09/24 09:38
eGFR 21.57 07/09/24 09:38
Glucose 114 mg/dl (70-99) H 07/09/24 09:38
Calcium 9.0 mg/dl (8.4-10.2) 07/09/24 09:38
Albumin 3.1 g/dl (3.5-5.0) L 07/07/24 07:17
Physical Exam
-
Vital Signs:
Vital Signs
Temp Pulse Resp BP Pulse Ox
98.5 F 47 20 107/47 97
07/09/24 07:26 07/09/24 13:58 07/09/24 13:58 07/09/24 13:58 07/09/24 13:58
Cardiovascular:: Regular rate and rhythm
Respiratory:: Bilateral: Coarse
Lung Excursion:: Normal
Abdomen:: Nontender and Soft
Bowel Sounds:: Normal
Extremity Edema:: None: Bilateral:
[2024-07-09 15:30] LABS: B.E. 1.8 mmol/L; HCO3 26.6 mmol/L (21-28); O2 Saturation % 99.1 % (94-98); PCO2 42 mmHg (32-35); PO2 91 mmHg (83-108); Sodium 134 mMOL/L (136-145); pH 7.41 (7.35-7.45)
--- NOTE | 2024-07-09 15:34 | PTCARENOTE ---
Pt called this RN to report feeling lightheaded and SOB. PT OOB in chair, moved to med. RR 24, 97% on 5L. LS diminished w/ fine crackles L base, same as this AM. HR 47. BP 107/47. Dr Martin and Nephro notified. Meds adjusted. CXR and ABG ordered,
awaiting results.
[2024-07-09] MEDS: ASPIR LOW (ENTERIC COATED) 81 MG PO (16:48)
[2024-07-09] MEDS: COREG 12.5 MG PO (19:59)
[2024-07-09 21:40] LABS: Glucose - Point of Care 94 mg/dl (70-99)
[2024-07-09] MEDS: REQUIP 0.5 MG PO (22:07)
[2024-07-10 04:00] VITALS: BMI 22.6
[2024-07-10] MEDS: FOSAMAX 70 MG PO (05:58)
[2024-07-10] MEDS: NON-FORMULARY ITEM 1 UNIT INH (07:26)
[2024-07-10 07:33] VITALS: BP 125/50
[2024-07-10] MEDS: PLAVIX 75 MG PO (07:38)
[2024-07-10] MEDS: COREG 12.5 MG PO (07:38)
[2024-07-10] MEDS: PROCARDIA XL (EXTENDED RELEASE) 90 MG PO (07:38)
[2024-07-10] MEDS: PROTONIX 40 MG PO (07:38)
[2024-07-10] MEDS: HEPARIN 5000 UNITS SC (07:38)
[2024-07-10] MEDS: DESENEX/MITRAZOL/ZEASORB 1 APPLIC TOPICAL (07:39)
[2024-07-10 07:57] LABS: Blood Urea Nitrogen 35 mg/dl (7-17); Calcium 8.5 mg/dl (8.4-10.2); Carbon Dioxide 28 mmol/L (22-30); Chloride 100 mmol/L (98-107); Estimated Creatinine Clearance 12 ml/min; Glucose 94 mg/dl (70-99); Potassium 3.7 mmol/L (3.5-5.1); Sodium 136 mmol/L (135-145); eGFR 21.57
--- NOTE | 2024-07-10 11:19 | CM ---
CM following re: discharge planning.
Reviewed pt's chart, met with pt and spoke to pt's daughter Coco to update on discharge plan progress.
According to pt is medically stable to be discharged today. Both pt and her daughter Coco are aware, expressed their agreement. IMM reviewed, placed on chart, pt has a copy.
CM spoke to [facility] liaison and she confirmed that a bed is available and pt is accepted for admission today and she has auth information.
Authorization # [id number]
Approved nursing home level 1.
Approved 7 days.
Start date 07/09/24, LCD/NRD 07/15/24
Updates to [facility] [phone]
to arrange ambulance transport BLS. PMNC completed and left for RN on chart.
[facility]
Nursing Report #: [phone]
Discharge instructions Fax #: [phone]
D/C plan: [facility] today.
--- NOTE | 2024-07-10 12:19 | W.PN.HOSP.TC ---
Addendum entered and electronically signed by Marychuy Martin MD 07/10/24 14:53:
total DC time 40 min
Original Note:
Today's Communication/Plan
-
for SNF today
Assessment / Plan
Assessment / Plan
84-year-old woman with past medical history of:
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
hypertension,
hyperlipidemia,
rectal prolapse,
renal artery stenosis,
osteoporosis,
renal stents;
p/w abdominal pain associated with bloody diarrhea. Found to have moderate to severe colitis.
Assessment/Plan
# Sepsis POA 2/ colitis
suspect ischemic colitis
stool culture negative, Norovirus negative
C. difficile antigen positive/toxin negative.
No need for Zosyn
Completed PO vancomycin for C diff coverage
Low residue diet liberalized to regular to help with loss of appetite
Monitor hemoglobin, no obvious acute blood loss anemia this time
Appreciate GI and ID input
will need GI outpt eval
# Acute HFpEF
CXR with pulmonary congestion
Previously IV Lasix 20mg daily was started - now stopped due to worsening renal function
ECHO f/u - EF 70%, mild to mod AR
# CORNELIA on CKD stage IIIb
Suspect prerenal secondary to diarrhea versus ATN and now overdiuresis
renal US unrevealing: mild bilateral renal atrophy without hydronephrosis. Bilateral renal simple cysts.
Lasix stopped
SCr at 2.2 today, which is likely her new baseline
Nephrology on board
repeat renal US reviewed, stable
d/w renal, OK for Dispo to SNF
urine culture (unsure why ordered by overnight team) noted presumptive E coli, ok to treat empiric cefdinir for 3 days (of note, pt denies to new urinary symptoms)
# Coronary disease
# History of carotid disease
No active chest pain
Continue aspirin and Plavix for now
# Hypertension
resumed nifedipine 90 mg daily
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 Increased coreg dose to 25 mg BID
IV hydralazine PRN
# Anemia of chronic disease
Continue to monitor hemoglobin for possible acute blood loss anemia
# COPD with chronic hypoxic respiratory failure on 4 L of oxygen at baseline
# Hyperlipidemia
Hold Zetia
# Restless legs
Continue ropinirole, gabapentin
# Osteoporosis
Continue alendronate
Full code
DVT ppx: trial HSQ
Dispo: SNF
DW CM
Anticipated Discharge: Today
Subjective/Interval History
-
Date of Service: July 10, 2024
Objective Data
-
Labs:
Laboratory Results
07/10/24
07:13
Sodium 136
Potassium 3.7
Chloride 100
Carbon Dioxide 28
BUN 35 H
Creatinine 2.2 H
Glucose 94
Calcium 8.5
Vital Signs:
Vital Signs
Temp Pulse Resp BP Pulse Ox
36.7 C 64 18 125/50 97
07/10/24 07:33 07/10/24 07:38 07/10/24 07:33 07/10/24 07:38 07/10/24 07:33
I&O
07/09/24 07/10/24 07/11/24
06:59 06:59 06:59
Intake Total 240 / 240 720 / 720
Output Total 180 / 180
Balance 60 / 60 720 / 720
Review of Systems
-
History Source: Patient
All other systems: Reviewed and negative
Physical Exam
-
General: Well Developed, Well Nourished, No Apparent Distress, Comfortable and Conversant
HEENT: Normocephalic, Atraumatic, Nose Appears Normal, Ears Appear Normal and Hearing Impaired
Respiratory: Clear to Auscultation and Other (uses chronic oxygen)
Cardiac: Regular Rhythm and S1/S2
GI: Soft
Musculoskeletal: No Clubbing and No Cyanosis
Skin: Warm and Dry
Neuro: Awake, Alert and Oriented
Psych: Calm and Intact Judgement/Insight
Data Reviewed
-
Diagnostic Radiology: Report Reviewed by me
Medical Tests (Nuc Med, Echo etc): Report Reviewed by me
Labs: Labs Reviewed by me
[2024-07-10] MEDS: OMNICEF 300 MG PO (12:43)
--- NOTE | 2024-07-10 12:48 | W.PN.NEPH.PH ---
Today's Communication / Plan
-
Continue supportive care no change BMP in the a.m.
Assessment/Plan
-
IMP:
Sepsis POA 2/2 colitis
suspect ischemic colitis
C. difficile antigen positive/toxin negative.
Acute HFpEF-ECHO f/u - EF 70%, mild to mod AR
CORNELIA on CKD stage IIIb-BASELINE CR 1.5? Dr Yarbrough
Coronary disease
History of carotid disease
Hypertension
Anemia of chronic disease
COPD with chronic hypoxic respiratory failure on 4-5 L of oxygen at baseline
Hyperlipidemia
Restless legs
Osteoporosis
Plan:
follow BMP
cr stable at 2.2 relatively stable since admission. Did go as low as 1.4.
Volume status stable/ABG reviewed with normal pH.
-
-
Date of Service: July 10, 2024
CC / HPI / ROS
-
Chief Complaint:
CORNELIA
History of Present Illness:
CORNELIA/Cr stable at 1.9 to 2.1 above her baseline but stable
BP stable high
Review of Systems:
no CP/SOB other than her chronic COPD
Labs
-
Labs:
WBC 6.5 10^3/uL (4.8-10.8) 07/08/24 05:31
RBC 3.04 10^6/uL (4.20-5.40) L 07/08/24 05:31
Hgb 8.3 g/dL (12.0-16.0) L 07/08/24 05:31
Hct 27.3 % (37.0-47.0) L 07/08/24 05:31
Plt Count 315 10^3/uL (130-400) 07/08/24 05:31
Sodium 136 mmol/L (135-145) 07/10/24 07:13
Potassium 3.7 mmol/L (3.5-5.1) 07/10/24 07:13
Chloride 100 mmol/L (98-107) 07/10/24 07:13
Carbon Dioxide 28 mmol/L (22-30) 07/10/24 07:13
BUN 35 mg/dl (7-17) H 07/10/24 07:13
Creatinine 2.2 mg/dL (0.6-1.0) H 07/10/24 07:13
eGFR 21.57 07/10/24 07:13
Glucose 94 mg/dl (70-99) 07/10/24 07:13
Calcium 8.5 mg/dl (8.4-10.2) 07/10/24 07:13
Albumin 3.1 g/dl (3.5-5.0) L 07/07/24 07:17
Physical Exam
-
Vital Signs:
Vital Signs
Temp Pulse Resp BP Pulse Ox
98.0 F 64 18 125/50 97
07/10/24 07:33 07/10/24 07:38 07/10/24 07:33 07/10/24 07:38 07/10/24 07:33
Cardiovascular:: Regular rate and rhythm
Respiratory:: Bilateral: Coarse
Lung Excursion:: Normal
Abdomen:: Nontender and Soft
Bowel Sounds:: Normal
Extremity Edema:: None: Bilateral:
--- NOTE | 2024-07-10 13:10 | W.DCSUMMARY ---
Discharge Summary
Discharge Data
Date of Admission: 06/23/24
Date of Discharge: 07/10/24
-
Pending Results: No
Hospital Course
Principal Diagnosis:
Sepsis on admission due to colitis, suspect ischemic colitis versus C. difficile colitis (antigen positive/toxin negative)- completed p.o. vancomycin during hospital stay.
CORNELIA on CKD. Now likely CKD stage 4.
Possible urinary tract infection (UTI)
Chronic Diagnoses:�
Coronary disease
History of carotid disease
Hypertension
Anemia of chronic disease
COPD with chronic hypoxic respiratory failure on 4 L of oxygen at baseline
Hyperlipidemia
Restless legs on ropinirole and gabapentin
Osteoporosis on alendronate
Consultations:�
Nephrology
Gastroenterology
Procedures:�
None
Clinical course:�
This is a 84-year-old woman with past medical history as stated above, who presented with abdominal pain and bloody diarrhea.
Problem 1:
Sepsis on admission due to colitis, suspect ischemic colitis versus C. difficile colitis (antigen positive/toxin negative).
She had completed p.o. vancomycin x10 days during hospital stay.
Her diarrhea resolved uneventfully.
Problem 2:
Essential Hypertension.
Her prior to admission Toprol was changed to Coreg for better blood pressure control. She can continue Coreg 12.5 mg twice daily.
She can also continue with her prior to admission nifedipine 90 mg daily.
Problem 3:
CORNELIA on CKD. Now likely CKD stage 4.
Her initial CORNELIA was likely due to prerenal CORNELIA from diarrhea.
Her kidney ultrasound was unrevealing.
Her serum creatinine has plateaued at around 2.0 to 2.2 which is likely her new baseline.
She can follow-up with repeat BMP with result to her PCP outpatient.
Of note, her urine culture on the day of discharge grew presumptive E. coli. It was unclear why urine culture was sent by overnight team (she denied to urinary symptoms), but she can continue with empiric cefdinir for 3 days.
As for the rest of her medical problems, they were stable during her hospital stay.
Discharge Plan
-
Patient Disposition: Long Term/SNF
Discharge Diagnosis/Procedures: Sepsis due to colitis (suspect ischemic colitis vs c diff infection- completed PO vancomycin for C diff coverage);
Possible UTI;
Now CKD stage 3 (Cr stable at 2.2 on discharge)
Condition: Fair
Diet: As tolerated
Activity: As tolerated
Driving Restrictions: As prior to admission
Blood Work: BMP in 1 week with result to your PCP
Referrals:
Beata Brown MD [Active] -
Barb Aguirre MD [Family Provider] - in less than 1 week
Additional Discharge Medication Instructions: Complete Cefdinir for 3 days for the possible UTI
Your Toprol was replaced by Coreg for better BP control
Prescriptions:
New
cefdinir 300 mg Capsule
300 mg PO Q12 3 Days Qty: 6 0RF
carvedilol 12.5 mg Tablet
12.5 mg PO BID Qty: 60 0RF
Continued
alendronate [Fosamax] 70 mg Tablet
70 mg PO MO
clopidogrel [Plavix] 75 mg Tablet
75 mg PO DAILY
aspirin 81 mg Tablet,Delayed Release (Dr/Ec)
81 mg PO QPM
nifedipine 90 mg tablet extended release 24hr
90 mg PO DAILY
ropinirole 0.5 mg Tablet
0.5 mg PO HSPRN PRN (Reason: rts)
ezetimibe [Zetia] 10 mg Tablet
10 mg PO QPM
Trelegy Ellipta 100-62.5-25 mcg Blister With Device
1 inh INHALATION DAILY
Discontinued
metoprolol succinate [Toprol XL] 25 mg Tablet Extended Release 24 Hr
25 mg PO HS
Discharge Orders:
Discharge Patient (As Directed); Ordered 07/10/24
Ordered By: Marychuy Martin
Discharge Date and Time
Discharge Date/Time: 07/10/24 14:07
Print Language: DANISH
--- NOTE | 2024-07-10 13:39 | W.PN.DEATH ---
Pronouncement of
-
Called to see patient to pronounce.
No spontaneous heart tones or respirations noted.
Patient not responsive to verbal stimuli.
Patient is pronounced .
Time of : 13:35
Date of : 07/10/24
Family Notified: Yes
[2024-07-10 14:07] VITALS: BP 107/52
== END 2024-07-10 14:07 | DRG 871 ==
LOC: 1 ACUTE 15:11
PROVIDERS: Emergency Medicine; Internal Medicine; Internal Medicine Nephrology; Nurse Practitioner Family; Specialist; ADMITTING PHYSICIAN Internal Medicine; ATTENDING PHYSICIAN Internal Medicine; CONSULT PHYSICIAN Internal Medicine; CONSULT PHYSICIAN Internal Medicine Gastroenterology; CONSULT PHYSICIAN Internal Medicine Infectious Disease; EMERGENCY PHYSICIAN Emergency Medicine; FAMILY PHYSICIAN Internal Medicine
DX: A41.9 Sepsis, unspecified organism (principal); I50.31 Acute diastolic (congestive) heart failure; N17.0 Acute kidney failure with tubular necrosis; K55.9 Vascular disorder of intestine, unspecified; I13.0 Hypertensive heart and chronic kidney disease with heart failure and stage 1 through stage 4 chronic kidney disease, or unspecified chronic kidney disease; N18.4 Chronic kidney disease, stage 4 (severe); J96.11 Chronic respiratory failure with hypoxia; J44.9 Chronic obstructive pulmonary disease, unspecified; Z99.81 Dependence on supplemental oxygen; E78.00 Pure hypercholesterolemia, unspecified; G25.81 Restless legs syndrome; M81.0 Age-related osteoporosis without current pathological fracture; I70.1 Atherosclerosis of renal artery; I25.10 Atherosclerotic heart disease of native coronary artery without angina pectoris; Z90.710 Acquired absence of both cervix and uterus; Z87.891 Personal history of nicotine dependence; Z79.82 Long term (current) use of aspirin; D63.1 Anemia in chronic kidney disease; Z79.83 Long term (current) use of bisphosphonates; Z79.02 Long term (current) use of antithrombotics/antiplatelets; Z79.899 Other long term (current) drug therapy
CPT/HCPCS: 36600; 71045; 71046; 74176; 76770; 80048; 80053; 81003; 81015; 81099; 82805; 82962; 83605; 83690; 83735; 84132; 84302; 85014; 85018; 85025; 85027; 86140; 87040; 87045; 87046; 87086; 87088; 87186; 87324; 87427; 87449; 87798; 89055; 93005; 93306; 94640; 96361; 96365; 96375; 97116; 97163; 97167; 97530; 97535; 99285

== ENCOUNTER 2024-12-27 22:06 | Inpatient (IN) | payer OTHER, SELFPAY ==
[2024-12-27] VITALS (11 sets, daily range): BP systolic 127–168; BP diastolic 59–98; BMI 20.2
[2024-12-27 15:02] LABS: Hematocrit 31.7 % (37.0-47.0); Hemoglobin 9.7 g/dL (12.0-16.0); Mean Corp Hgb Conc. 30.6 g/dL (33.0-37.0); Mean Corpuscular Volume 89.3 fL (81.0-99.0); Nucleated Red Blood Cells % 0 %; Platelet Count 217 10^3/uL (130-400); Red Cell Dist. Width 14.1 % (11.5-14.5)
[2024-12-27 15:24] LABS: Troponin I < 0.012 ng/ml
[2024-12-27 15:26] LABS: ALT (SGPT) 14 U/L (0-35); AST (SGOT) 20 U/L (14-36); Albumin 4.2 g/dl (3.5-5.0); Alkaline Phosphatase 80 U/L (38-126); Blood Urea Nitrogen 42 mg/dl (7-17); Calcium 9.0 mg/dl (8.4-10.2); Carbon Dioxide 25 mmol/L (22-30); Chloride 106 mmol/L (98-107); Estimated Creatinine Clearance 13 ml/min; Glucose 189 mg/dl (70-99); Lipase 93 U/L (23-300); Potassium 5.2 mmol/L (3.5-5.1); Sodium 138 mmol/L (135-145); Total Protein 7.1 g/dl (6.3-8.2); eGFR 21.57
--- NOTE | 2024-12-27 16:25 | ED.GENMED ---
History of Present Illness
General
Chief Complaint: Fainting/Passed Out
Source: patient, records, family and previous radiology exam
Exam Limitations: none
Time Seen by Provider: 12/27/24 15:53
Nursing documentation reviewed up to this point in time: agreed with
History of Present Illness
History of Present Illness:
84-year-old female presents with left lower abdominal pain and syncopal event history of colitis, oxygen dependent COPD no dysuria no frequency has had loose stools she called her daughter today states that she passed out due to pain, no chest pain
no vomiting
Past History
Past History
ED Past Medical History: COPD, HTN and Hypercholesterolemia
ED Past Surgical History: Gynecological (Hysterectomy) and Urological (Renal stents)
Social History
Tobacco: Former smoker
Alcohol: None
Drug: None
Personal:
Living: with family
Employment: Retired
Review of Systems
Review of Systems
All Other Systems: Not applicable
Constitutional: Reports fatigue; Denies fever
Respiratory: Reports trouble breathing (Chronic)
Cardiac: Reports syncope
ABD/GI: Reports abdominal pain; Denies vomiting, diarrhea, bloody stools or black stools
Phy Exam
Physical Exam
Physical Exam:
Physical Exam
General: Chronically ill-appearing female nontoxic
Neck: No jaundice no tongue bite no posterior neck
Heart: Regular
Lungs: Diminished breath sounds male
Abdomen: Tender in the left lower abdomen
Neuro: alert and oriented. no focal neurological deficits
Skin: no rash
Psychiatric: well kept. interactive and cooperative
Extremities: Trace edema
Course
Orders/Labs/Results
Orders:
Orders
12/27/24 14:38
Electrocardiogram (*1) Urgent
Reason for Study: Syncope
EKG- Treatment ONCE
12/27/24 14:50
CMP [Comprehensive Metabolic Panel] Urgent
Complete Blood Count/With Diff Urgent
Lipase Urgent
Troponin I Urgent
12/27/24 16:17
CT Abd/pel (oral only)-DH Only Urgent
Comment:
Reason For Exam: llq pain
Bladder Scan- Treatment ONCE
0.9% Sodium Chloride 500 ml [Nss] 500 ml IV BOLUS
Iohexol [Omnipaque] See Protocol PO NOW STA
Morphine Sulfate 2 mg IV NOW STA
Ondansetron Injectable [Zofran] 4 mg IV NOW STA
12/27/24 19:11
Diphenhydramine [Benadryl] 12.5 mg IV NOW STA
12/27/24 19:26
Urinalysis Reflex To Culture Urgent
Date Specimen was Collected: 12/27/24
Time Specimen was Collected: 19:25
Urine Microscopic Reflex Cult Urgent
Urine Culture Urgent
KAMILAH Source: U
Specimen Description:
Date Specimen was Collected: 12/27/24
Time Specimen was Collected: 19:25
12/27/24 19:57
Morphine Sulfate 2 mg IV NOW STA
12/27/24 20:17
Zosyn 2.25 grams IVPB NOW Piperacillin/Tazo 2.25 Gram [Zosyn] 2.25 grams in 50 ml IV NOW
Abnormal Lab Results
12/27/24 12/27/24
14:50 19:26
RBC 3.55 L 10^6/uL
(4.20-5.40)
Hgb 9.7 L g/dL
(12.0-16.0)
Hct 31.7 L %
(37.0-47.0)
MCHC 30.6 L g/dL
(33.0-37.0)
MPV 11.6 H fL
(7.4-10.4)
Abs Immat Gran (auto) 0.1 H 10^3/uL
(0-0.05)
Absolute Neuts (auto) 6.7 H 10^3/uL
(1.4-6.5)
Immature Gran % 0.6 H %
(0-0.5)
Potassium 5.2 H mmol/L
(3.5-5.1)
BUN 42 H mg/dl
(7-17)
Creatinine 2.2 H mg/dL
(0.6-1.0)
Glucose 189 H mg/dl
(70-99)
Ur Occult Blood Reflex 2+ A
(Negative)
Leukocyte Esterase Rfl 2+ A
(Negative)
Urine Bacteria (Reflex) Moderate A
(Negative)
Urine Glucose 1+ A
(Negative)
Urine Albumin (Reflex) 3+ A
(Neg - Trace)
12/27/24 14:50
12/27/24 14:50
Vital Signs
Initial and Last Documented VS:
Initial Vital Signs
Temp Pulse Resp BP Pulse Ox
96.1 F L 51 23 127/64 98
12/27/24 14:34 12/27/24 14:34 12/27/24 14:34 12/27/24 14:34 12/27/24 14:34
Last Documented Vital Signs
Temp Pulse Resp BP Pulse Ox
96.1 F L 76 20 168/61 96
12/27/24 14:34 12/27/24 19:30 12/27/24 19:30 12/27/24 19:00 12/27/24 19:15
MDM/Problems Addressed
Differential Diagnosis Includes:
Vasovagal, UTI colitis electrolyte abnormality arrhythmia less likely PE or ACS
MDM/Problems Addressed:
Syncope abdominal pain
Chronic conditions affecting care: COPD
Acute Exacerbation and/or Progression of Chronic Illness: COPD
*Radiology
Radiology exam reviewed: radiology read reviewed
*Pulse Oximetry
SaO2: 99
Nasal Cannula flow liters per minute: 5
Oxygen Mode of Delivery: Room air
Patient hypoxic: yes
*EKG
Interpreted by ED Provider?: Yes
Interpretation: abnormal
Comparison EKG: no comparison EKG present
Heart Rate: 78
Rate: normal
Rhythm: sinus
Ischemia: non-specific ST changes
*Laundry Laborer Interpretation
Rate: normal
Interpretation: normal
Heart Rate: 78
Rhythm: sinus
*Critical Care Note
Total Time (30-74mins, 75-104mins- exclusive of procedures): Not Applicable
Update Note
Update Note:
Update EKG noted prior noted labs are noted K is up, creatinine stable on exam she is tender in the left lower abdomen, will check CT with p.o. contrast will review old records treat her pain
7:32 PM RN reports patient complains of some redness around her face she has gotten some morphine and oral contrast, small dose of Benadryl was ordered I reevaluated the patient hide not able to appreciate any redness no wheezing no lip swelling no
tongue swelling will continue to follow, perhaps a histamine release from morphine?
8:[address] report noted looks like uncomplicated diverticulitis she is elderly she passed out, likely will be prudent to keep her in the hospital for IV fluids analgesics general supportive care serial exams
ED Attending Note
-
Portions of this chart may have been created with voice recognition software.� Occasional wrong word or��sound alike� substitutions may have occurred due to the inherent limitations of voice recognition software.
Discharge Plan
Departure
Patient Disposition: Admit
Date of Disposition: 12/27/24
Time of Disposition: 20:18
Admit to: Telemetry
Presentation/result/management discussed w/ accepting MD/DO: Hospitalist
Patient with high blood pressure during this ER visit?: No
Condition: Fair
Discharge Problem:
Diverticulitis, Syncope and collapse
Prescriptions:
No Action
alendronate [Fosamax] 70 mg Tablet
70 mg PO MO
clopidogrel [Plavix] 75 mg Tablet
75 mg PO DAILY
aspirin 81 mg Tablet,Delayed Release (Dr/Ec)
81 mg PO QPM
nifedipine 90 mg tablet extended release 24hr
90 mg PO DAILY
ropinirole 0.5 mg Tablet
0.5 mg PO HSPRN PRN (Reason: rts)
ezetimibe [Zetia] 10 mg Tablet
10 mg PO QPM
Trelegy Ellipta 100-62.5-25 mcg Blister With Device
1 inh INHALATION DAILY
cefdinir 300 mg Capsule
300 mg PO Q12 3 Days Qty: 6 0RF
carvedilol 12.5 mg Tablet
12.5 mg PO BID Qty: 60 0RF
Referrals:
Barb Aguirre MD [Family Provider, Internal Medicine]
Interventions
Interventions:
*Risk Screen - Suicide Last Done: 12/27/24 14:43
*General Assessment Last Done: 12/27/24 14:39
*Neglect/Abuse Screening Last Done: 12/27/24 14:40
*ED- Fall Risk Assessment Last Done: 12/27/24 14:39
*ED COVID-19 Vaccine History Last Done: 12/27/24 14:39
VX-Tzcgrx-Epwkwiskrp Assessment Last Done: 12/27/24 14:45
ED- Cardiac Assessment Last Done: 12/27/24 14:44
ED- Neurological Assessment Last Done: 12/27/24 14:44
Discharge Date and Time
Print Language: COMORAN
[2024-12-27] MEDS: NSS 500 IV (16:55)
[2024-12-27] MEDS: MORPHINE SULFATE 2 MG IV ×2 (16:56→20:00)
[2024-12-27] MEDS: ZOFRAN 4 MG IV (16:56)
[2024-12-27] MEDS: OMNIPAQUE 50 ML PO (16:57)
[2024-12-27] MEDS: BENADRYL 12.5 MG IV (19:16)
[2024-12-27 19:35] LABS: Urine Character Clear (Clear)
[2024-12-27 19:55] LABS: Urine Squamous Cell >30 /LPF (Few)
[2024-12-27 19:56] LABS: Urine Red Blood Cell 0-2 /HPF (0-2)
--- NOTE | 2024-12-27 20:56 | EDRN ---
Med Rec: Patient knows what medications she takes but unsure of the dosing.
[2024-12-27] MEDS: ZOSYN 50 IV (20:57)
--- NOTE | 2024-12-27 21:47 | HPS.HSE ---
Family Physician
-
Family Physician: Barb Aguirre
Chief Complaint
-
Weakness, Abd Pain
History of Present Illness
Patient is an 84y F with PMH significant for COPD on home O2, hypertension and history of colitis who presents to ED complaining of weakness and LLQ abdominal pain. Patient states that she felt well yesterday / last PM. She woke late this AM
and states that she felt very weak and 'washed out'. She noted LLQ abdominal pain - similar to that which she had in June of this year with an episode of colitis.
Patient states that she 'might have' passed out this AM - she is not certain if she fully lost consciousness. No fall or injury. Daughter came home from work to check on her and found her to be weak and brought her to the ED for further evaluation.
Medical History
Past Medical History
Past Medical History: Reports Other
Past Surgical History: Reports Other
Social History
Tobacco: Non-smoker
Alcohol: None
Drug: None
Family History
Family History: Not pertinent
Allergies / Home Medications
Allergies reflects when Allergies were last updated in [employer].
Home Medications with original date entered in [employer]
Allergy/Medication List:
Allergies
Allergy/AdvReac Type Severity Reaction Status Date / Time
No Known Allergies Allergy Verified 06/23/24 08:27
Home Medications
alendronate 70 mg tablet (Fosamax) 70 mg PO MO osteoporosis 09/02/22
aspirin 81 mg tablet,delayed release 81 mg PO QPM Blood clot prevention/tx 09/02/22
clopidogrel 75 mg tablet (Plavix) 75 mg PO DAILY Blood clot prevention/tx 09/02/22
ezetimibe 10 mg tablet (Zetia) 10 mg PO QPM High cholesterol 09/02/22
ropinirole 0.5 mg tablet 0.5 mg PO HSPRN PRN rts 09/02/22
fluticasone fur. 100 mcg-umeclid 62.5 mcg-vilant 25 mcg inhalat.powder (Trelegy Ellipta) 1 inh inhalation DAILY 06/26/24
Review of Systems
-
History Source: Patient
A 12 point ROS was completed and negative except as noted: Yes
Constitutional: Reports Fatigue; Denies Fever or Chills
Respiratory: Denies Cough or Trouble Breathing
Cardiac: Reports Syncope (possibly?); Denies Chest Pain or Palpitations
Abdomen/GI: Reports Abdominal Pain; Denies Nausea, Vomiting, Diarrhea, Constipated, Bloody Stools or Black Stools
: Denies Dysuria or Flank Pain
Musculoskeletal: Denies Joint Pain or Edema
Neurological: Reports Weakness; Denies Dizzy or Headache
Physical Exam
Vital Signs
Vital Signs
Temp Pulse Resp BP Pulse Ox
96.1 F L 74 22 164/63 98
12/27/24 14:34 12/27/24 21:00 12/27/24 21:00 12/27/24 21:00 12/27/24 21:00
Physical Exam
General: Other (84y F in mild distress due to abdominal pain.)
HEENT: Moist mucous membranes and PERRLA
Respiratory: Clear; No Wheezes, Rales or Rhonchi
Cardiac: S1/S2, Regular Rhythm and Murmur (II/ [place])
GI: Soft, Non Distended, Normal Bowel Sounds and Other (LLQ abdominal tenderness, voluntary guarding.)
Musculoskeletal: No Clubbing, No Cyanosis and No Edema
Neuro: AO x 3
Laboratory Results
-
12/27/24 14:50
12/27/24 14:50
Laboratory Results
Total Bilirubin 0.4 mg/dl (0.2-1.3) 12/27/24 14:50
AST 20 U/L (14-36) 12/27/24 14:50
ALT 14 U/L (0-35) 09/04/25 14:50
Alkaline Phosphatase 80 U/L (38-126) 12/27/24 14:50
Troponin I < 0.012 ng/ml 12/27/24 14:50
Lipase 93 U/L (23-300) 12/27/24 14:50
Impression/Plan
-
A/P: Patient is an 84y F with PMH significant for hypertension, COPD on home O2 and prior colitis / diverticulitis who presents to ED complaining of generalized weakness and abdominal pain.
Acute Descending Colon Diverticulitis / Colitis
- Admit for further evaluation and treatment.
- Clear liquids diet, pain control / supportive care.
- IV abx and follow for clinical improvement.
Weakness / Possible Syncope
- Not clear whether or not patient had any actual LOC.
- Monitor on telemetry overnight.
- Weakness likely due to underlying infectious process as noted above.
- ? vasovagal response due to abdominal pain.
- Follow for any new / recurrent symptoms.
CKD III
- Stable. Renal function is at / near known baseline.
ASCVD
s/p bilateral renal artery stents
- Continue DAPT, beta-bill, etc.
COPD
Chronic Hypoxemic Respiratory Failure secondary to the above
- Maintained on 4 lpm of O2 at home at baseline.
- SpO2 acceptable on usual supplementation at present.
- Continue Trelegy.
Benign Hypertension
- Stable. Continue outpatient med regimen (need formal med rec in AM).
Anemia of Chronic Disease
- Stable. Hgb is at / near known baseline.
- Follow for any changes.
DVT Prophylaxis: SCDs
Code Status: DNR
[2024-12-27] MEDS: ASPIR LOW (ENTERIC COATED) 81 MG PO (23:17)
[2024-12-27] MEDS: TOPROL XL 25 MG PO (23:17)
[2024-12-28] VITALS (10 sets, daily range): BP systolic 98–192; BP diastolic 51–142; PULSE 66–76; O2SAT 96; BMI 20.2
--- NOTE | 2024-12-28 02:58 | PTCARENOTE ---
Pt admitted from ED to [address] [place]. Pt aaox3. Afebrile, VSS. 97% on 5L O2 via NC (baseline home O2, per patient). Pt c/o LLQ abdominal pain; had received pain medication prior to admit to floor and denied need for additional pain medications on
admission. Call kirby within reach and bed in lowest position.
[2024-12-28] MEDS: DILAUDID 0.5 MG IV ×2 (04:20→20:41)
[2024-12-28 06:10] LABS: Hematocrit 28.5 % (37.0-47.0); Hemoglobin 8.8 g/dL (12.0-16.0); Mean Corp Hgb Conc. 30.9 g/dL (33.0-37.0); Mean Corpuscular Volume 88.2 fL (81.0-99.0); Platelet Count 177 10^3/uL (130-400); Red Cell Dist. Width 14.1 % (11.5-14.5)
[2024-12-28] MEDS: ZOSYN 50 IV ×3 (06:10→22:06)
[2024-12-28 06:35] LABS: Blood Urea Nitrogen 36 mg/dl (7-17); Calcium 8.1 mg/dl (8.4-10.2); Carbon Dioxide 26 mmol/L (22-30); Chloride 109 mmol/L (98-107); Estimated Creatinine Clearance 13 ml/min; Glucose 88 mg/dl (70-99); Potassium 4.9 mmol/L (3.5-5.1); Sodium 139 mmol/L (135-145); eGFR 21.57
[2024-12-28] MEDS: SPIRIVA RESPIMAT 2.5 MCG 2 PUFF INH (07:33)
[2024-12-28] MEDS: SYMBICORT 80/4.5 MCG INHALER 2 PUFF INH ×2 (07:33→19:32)
[2024-12-28] MEDS: PLAVIX 75 MG PO (07:51)
--- NOTE | 2024-12-28 11:48 | CM ---
Patient seen at bedside
IA completed
Pt resides with her dtr and family in a 2SH with 1STE, 1st floor set up
Pt is indep and ambulatory with use of a WW
13 steps to 2nd floor shower, powder room on 1st foor, states will have full bath soon
denies VN/Has been at [facility] in past
PCP- Barb Aguirre
Rx- [facility]
PLAN: TBD, ALISSA to follow for needs
--- NOTE | 2024-12-28 12:07 | W.PN.HOSP.TC ---
Addendum entered and electronically signed by Shaq Murray DO 12/28/24 14:09:
Updated patient's daughter Coco on the phone. All questions answered. She will bring in the home medication list today.
She also stated that her mother does not currently see a staff radiation therapist but did see 1 affiliated with the [facility] as a one-time visit.
Original Note:
Today's Communication/Plan
-
Continue antibiotics
Clear liquid diet
Update home medication list
Assessment / Plan
Assessment / Plan
Gen-AAOx3, NAD
HEENT-NC, AT, anicteric, clear oral mm
Neck-supple
CV-reg, no M, +S1/S2
Lungs-clear B/L
Abd-soft, tender left abdomen, nondistended
Ext-no edema
Musculoskeletal-no cyanosis, clubbing
Skin-warm and dry
Neuro-grossly non-focal
Psych-calm, cooperative
Acute diverticulitis -involving distal descending colon. Appears uncomplicated on CT scan. Continue IV antibiotics. Continue clear liquids. Continue analgesics.
Outpatient follow-up with gastroenterology for possible repeat colonoscopy. Patient believes her last one was many years ago in [facility].
Generalized weakness -unclear if she had a syncopal event prior to admission. No obvious injuries. Check orthostatics. PT consult noted, SNF versus home health.
Hyperkalemia -POA, resolved.
COPD without exacerbation -oxygen dependent, uses 5 L at home. Continue inhalers.
Essential hypertension -please update home medication list and resume home meds.
Chronic anemia -hemoglobin appears at baseline.
CKD 4 -stable.
Thoracic aortic aneurysm -noted on CT scan this admission. Distal descending thoracic aorta measures 4 cm, similar to prior. Mild dilation of the abdominal aorta, similar to prior.
Asymptomatic cholelithiasis -noted on CT.
Chronic heart failure preserved EF -stable.
CAD -stable.
Hyperlipidemia -on Zetia.
Restless leg syndrome
Osteoporosis
Renal artery stenosis -s/p renal stents.
DNR
Anticipated Discharge: > 48 hours
Subjective/Interval History
-
Date of Service: December 28, 2024
Patient seen and examined. Looks uncomfortable but denies pain. No complaints.
Objective Data
-
Labs:
Laboratory Results
12/28/24
05:53
WBC 7.9
Hgb 8.8 L
Hct 28.5 L
Plt Count 177
Sodium 139
Potassium 4.9
Chloride 109 H
Carbon Dioxide 26
BUN 36 H
Creatinine 2.2 H
Glucose 88
Calcium 8.1 L
Vital Signs:
Vital Signs
Temp Pulse Resp BP Pulse Ox
97.9 F 64 18 167/61 99
12/28/24 11:25 12/28/24 11:25 12/28/24 11:25 12/28/24 11:25 12/28/24 11:25
Review of Systems
-
History Source: Patient
All other systems: Reviewed and negative
[2024-12-28 14:59] LABS: TSH 1.79 uIU/ml (0.47-4.68)
[2024-12-28] MEDS: ZETIA 10 MG PO (16:59)
[2024-12-28] MEDS: ASPIR LOW (ENTERIC COATED) 81 MG PO (16:59)
[2024-12-28] MEDS: HEPARIN 5000 UNITS SC (20:41)
[2024-12-28] MEDS: COREG 12.5 MG PO (21:14)
[2024-12-28] MEDS: TOPROL XL 25 MG PO (22:05)
[2024-12-29] VITALS (8 sets, daily range): BP systolic 104–220; BP diastolic 42–127; BMI 19.7
[2024-12-29] MEDS: ZOSYN 50 IV ×3 (06:00→21:38)
[2024-12-29] MEDS: SYMBICORT 80/4.5 MCG INHALER 2 PUFF INH ×2 (07:36→19:38)
[2024-12-29] MEDS: SPIRIVA RESPIMAT 2.5 MCG 2 PUFF INH (07:36)
[2024-12-29] MEDS: COREG 12.5 MG PO ×2 (08:38→20:37)
[2024-12-29] MEDS: HEPARIN 5000 UNITS SC ×2 (08:38→20:37)
[2024-12-29] MEDS: PLAVIX 75 MG PO (08:38)
[2024-12-29] MEDS: PROCARDIA XL (EXTENDED RELEASE) 90 MG PO (08:41)
--- NOTE | 2024-12-29 11:11 | W.PN.HOSP.TC ---
Today's Communication/Plan
-
Continue antibiotics
Advance diet to full liquids
Monitor blood pressures
Assessment / Plan
Assessment / Plan
Gen-AAOx3, NAD
HEENT-NC, AT, anicteric, clear oral mm
Neck-supple
CV-reg, no M, +S1/S2
Lungs-clear B/L
Abd-soft, tender left abdomen, nondistended
Ext-no edema
Musculoskeletal-no cyanosis, clubbing
Skin-warm and dry
Neuro-grossly non-focal
Psych-calm, cooperative
Acute diverticulitis -involving distal descending colon. Appears uncomplicated on CT scan. Continue IV antibiotics. Pain overall is improving. Still somewhat tender on exam. Advance diet to full liquids today.
Outpatient follow-up with gastroenterology for possible repeat colonoscopy. Patient believes her last one was many years ago in [facility].
Antibiotic associated diarrhea -has loose stools, likely due to Zosyn. Doubt C. difficile infection. Monitor for now.
Generalized weakness -unclear if she had a syncopal event prior to admission. No obvious injuries. Orthostatics are negative. PT consult noted, SNF versus home health.
Hyperkalemia -POA, resolved.
COPD without exacerbation -oxygen dependent, uses 5 L at home. Continue inhalers.
Essential hypertension with hypertensive urgency -nifedipine resumed this morning. Continue carvedilol. Unclear why she is on 2 beta-blockers.
Chronic anemia -hemoglobin appears at baseline.
CKD 4 -stable.
Thoracic aortic aneurysm -noted on CT scan this admission. Distal descending thoracic aorta measures 4 cm, similar to prior. Mild dilation of the abdominal aorta, similar to prior.
Asymptomatic cholelithiasis -noted on CT.
Chronic heart failure preserved EF -stable.
CAD -stable.
Hyperlipidemia -on Zetia.
Restless leg syndrome
Osteoporosis
Renal artery stenosis -s/p renal stents.
DNR
Anticipated Discharge: > 48 hours
Subjective/Interval History
-
Date of Service: December 29, 2024
Patient seen and examined. Complaining of loose stools.
Objective Data
-
Vital Signs:
Vital Signs
Temp Pulse Resp BP Pulse Ox
98.4 F 73 16 220/80 99
12/29/24 07:00 12/29/24 07:41 12/29/24 07:41 12/29/24 08:47 12/29/24 07:41
I&O
12/28/24 12/29/24 12/30/24
06:59 06:59 06:59
Intake Total 550 / 550
Balance 550 / 550
Review of Systems
-
History Source: Patient
All other systems: Reviewed and negative
[2024-12-29] MEDS: ZETIA 10 MG PO (17:07)
[2024-12-29] MEDS: ASPIR LOW (ENTERIC COATED) 81 MG PO (17:07)
[2024-12-30] VITALS (7 sets, daily range): BP systolic 135–184; BP diastolic 50–105; PULSE 72–75; O2SAT 97; BMI 19.2
[2024-12-30] MEDS: ZOSYN 50 IV ×3 (05:54→21:35)
[2024-12-30] MEDS: SYMBICORT 80/4.5 MCG INHALER 2 PUFF INH ×2 (07:30→19:29)
[2024-12-30] MEDS: SPIRIVA RESPIMAT 2.5 MCG 2 PUFF INH (07:30)
[2024-12-30 08:01] LABS: Hematocrit 27.9 % (37.0-47.0); Hemoglobin 8.8 g/dL (12.0-16.0); Mean Corp Hgb Conc. 31.5 g/dL (33.0-37.0); Mean Corpuscular Volume 89.4 fL (81.0-99.0); Nucleated Red Blood Cells % 0 %; Platelet Count 169 10^3/uL (130-400); Red Cell Dist. Width 14.1 % (11.5-14.5)
[2024-12-30 08:54] LABS: Blood Urea Nitrogen 23 mg/dl (7-17); Calcium 8.9 mg/dl (8.4-10.2); Carbon Dioxide 25 mmol/L (22-30); Chloride 110 mmol/L (98-107); Estimated Creatinine Clearance 14 ml/min; Glucose 88 mg/dl (70-99); Potassium 4.5 mmol/L (3.5-5.1); Sodium 140 mmol/L (135-145); eGFR 22.81
[2024-12-30] MEDS: PROCARDIA XL (EXTENDED RELEASE) 90 MG PO (10:21)
[2024-12-30] MEDS: PLAVIX 75 MG PO (10:21)
[2024-12-30] MEDS: HEPARIN 5000 UNITS SC ×2 (10:21→20:31)
[2024-12-30] MEDS: COREG 12.5 MG PO ×2 (10:21→20:31)
--- NOTE | 2024-12-30 11:18 | W.PN.HOSP.TC ---
Today's Communication/Plan
-
Advance diet as tolerated
Continue antibiotics
Assessment / Plan
Assessment / Plan
Gen-AAOx3, NAD
HEENT-NC, AT, anicteric, clear oral mm
Neck-supple
CV-reg, no M, +S1/S2
Lungs-clear B/L
Abd-soft, tender left abdomen, nondistended
Ext-no edema
Musculoskeletal-no cyanosis, clubbing
Skin-warm and dry
Neuro-grossly non-focal
Psych-calm, cooperative
Acute diverticulitis -involving distal descending colon. Appears uncomplicated on CT scan. Continue IV antibiotics. Pain overall is improving. Abdominal tenderness is improving on exam. Tolerating full liquids. Patient wants to stay on full
liquids today and perhaps advance to solids on Tuesday.
Outpatient follow-up with gastroenterology for possible repeat colonoscopy. Patient believes her last one was many years ago in [facility].
Antibiotic associated diarrhea -has loose stools, likely due to Zosyn. Doubt C. difficile infection. Monitor for now.
Generalized weakness -unclear if she had a syncopal event prior to admission. No obvious injuries. Orthostatics are negative. PT/OT recommend home health.
Hyperkalemia -POA, resolved.
Asymptomatic bacteriuria -urine culture 12/27 noted. No indication for antibiotics.
COPD without exacerbation -oxygen dependent, uses 5 L at home. Continue inhalers.
Essential hypertension with hypertensive urgency -nifedipine resumed this morning. Continue carvedilol. Unclear why she is on 2 beta-blockers.
Chronic anemia -hemoglobin appears at baseline.
CKD 4 -stable.
Thoracic aortic aneurysm -noted on CT scan this admission. Distal descending thoracic aorta measures 4 cm, similar to prior. Mild dilation of the abdominal aorta, similar to prior.
Asymptomatic cholelithiasis -noted on CT.
Chronic heart failure preserved EF -stable.
CAD -stable.
Hyperlipidemia -on Zetia.
Restless leg syndrome
Osteoporosis
Renal artery stenosis -s/p renal stents.
DNR
Dispo -discharge when tolerating solid food. Advance diet as tolerated. Hopefully by Tuesday.
Anticipated Discharge: Within 24 hours
Subjective/Interval History
-
Date of Service: December 30, 2024
Patient seen and examined. Sitting in the chair, no new complaints.
Objective Data
-
Labs:
Laboratory Results
12/30/24
07:11
WBC 5.1
Hgb 8.8 L
Hct 27.9 L
Plt Count 169
Sodium 140
Potassium 4.5
Chloride 110 H
Carbon Dioxide 25
BUN 23 H
Creatinine 2.1 H
Glucose 88
Calcium 8.9
Vital Signs:
Vital Signs
Temp Pulse Resp BP Pulse Ox
98.1 F 65 19 163/57 99
12/30/24 11:00 12/30/24 11:00 12/30/24 11:00 12/30/24 11:00 12/30/24 11:00
I&O
12/29/24 12/30/24 12/31/24
06:59 06:59 06:59
Intake Total 550 / 550 1200 / 1200
Balance 550 / 550 1200 / 1200
Review of Systems
-
History Source: Patient
All other systems: Reviewed and negative
[2024-12-30] MEDS: ZETIA 10 MG PO (17:05)
[2024-12-30] MEDS: ASPIR LOW (ENTERIC COATED) 81 MG PO (17:05)
--- NOTE | 2024-12-30 18:11 | PTCARENOTE ---
Pt OOB during PT session, tolerated about 1-2 hrs OOB. Continues on 4L O2 99% POX. Attempts made to wean O2, which caused patient anxiety due to the fact she wears 5L O2 at baseline. Pt advanced to low residue diet during shift as per order to
advance diet as tolerated. Checked frequently throughout shift. Call kirby within reach.
--- NOTE | 2024-12-30 23:27 | PTCARENOTE ---
Oral care was not preformed on Pt because Pt prefers to do it only in the morning.
[2024-12-31] VITALS (7 sets, daily range): BP systolic 140–202; BP diastolic 57–87; PULSE 64–78; BMI 19.1
[2024-12-31] MEDS: ZOSYN 50 IV (05:48)
[2024-12-31] MEDS: SPIRIVA RESPIMAT 2.5 MCG INH (07:48)
[2024-12-31] MEDS: SYMBICORT 80/4.5 MCG INHALER INH (07:48)
[2024-12-31] MEDS: PLAVIX 75 MG PO (08:15)
[2024-12-31] MEDS: COREG 12.5 MG PO ×2 (08:15→21:18)
[2024-12-31] MEDS: HEPARIN 5000 UNITS SC ×2 (08:16→21:18)
[2024-12-31] MEDS: PROCARDIA XL (EXTENDED RELEASE) 90 MG PO (08:16)
--- NOTE | 2024-12-31 08:39 | W.PN.HOSP.TC ---
Today's Communication/Plan
-
Antibiotics
Assessment / Plan
Assessment / Plan
Gen-AAOx3, NAD
HEENT-NC, AT, anicteric, clear oral mm
Neck-supple
CV-reg, no M, +S1/S2
Lungs-clear B/L
Abd-soft, tender left abdomen, nondistended
Ext-no edema
Musculoskeletal-no cyanosis, clubbing
Skin-warm and dry
Neuro-grossly non-focal
Psych-calm, cooperative
A/P:
Acute diverticulitis-change antibiotics today to oral Cipro and Flagyl. Seen CT scan. Continue low residue diet. Might need GI for colonoscopy but as of now family has been told that due to her age and COPD she should not have anymore C-scope-I
encouraged them to have more discussion OP in the setting of this episode of diverticulitis this time. Discussed with daughter Coco over the phone today.
Acute diarrhea-could be related to antibiotics but will check C. difficile stools today if persist.
Unclear if real UTI or asymptomatic bacteriuria-in any event antibiotics would cover both.
Generalized weakness -unclear if she had a syncopal event prior to admission. No obvious injuries. Orthostatics are negative. PT/OT recommend home health.
Hyperkalemia -POA, resolved.
Asymptomatic bacteriuria -urine culture 12/27 noted. No indication for antibiotics.
COPD without exacerbation -oxygen dependent, uses 5 L at home. Continue inhalers.
Essential hypertension with hypertensive urgency -nifedipine resumed this morning. Continue carvedilol. Unclear why she is on 2 beta-blockers.
Chronic anemia -hemoglobin appears at baseline.
CKD 4 -stable.
Thoracic aortic aneurysm -noted on CT scan this admission. Distal descending thoracic aorta measures 4 cm, similar to prior. Mild dilation of the abdominal aorta, similar to prior.
Asymptomatic cholelithiasis -noted on CT.
Chronic heart failure preserved EF -stable.
CAD -stable.
Hyperlipidemia -on Zetia.
Restless leg syndrome
Osteoporosis
Renal artery stenosis -s/p renal stents.
DVT prophylaxis-heparin SQ
DNR
Time spent 35 minutes
Anticipated Discharge: Within 24 hours
Subjective/Interval History
-
Date of Service: December 31, 2024
Patient abdominal pain better and no nausea or vomiting. She is having some diarrhea. Afebrile. Patient does not feel ready for discharge
Objective Data
-
Vital Signs:
Vital Signs
Temp Pulse Resp BP Pulse Ox
98.6 F 68 16 202/79 100
12/30/24 23:00 12/31/24 08:16 12/30/24 23:00 12/31/24 08:16 12/30/24 23:00
I&O
12/30/24 12/31/24 01/01/25
06:59 06:59 06:59
Intake Total 1200 / 1200 2009
Balance 1200 / 1200 2009
--- NOTE | 2024-12-31 12:33 | CM ---
Addendum entered by Tasia Cid 12/31/24 12:39:
resources also left with patient regarding private cg. discussed with daughter as well.
Original Note:
PT rec Home Health
spoke with patient and daughter - prefer [facility]
notified [facility] Liaison - referral to be placed
PLAN: home with [facility] when stable
--- NOTE | 2024-12-31 13:07 | VNURNOTE ---
Home Health Liaison met with patient at bedside to discuss [facility] nurse/therapy, visits, schedule and homebound status. Patient is agreeable and understands that visits at home will be 2-3 x per week to assess and teach medical management. She
requests visits to be scheduled with daughter Coco. Noted on referral Patient is aware that [facility] will contact them for start of care in 1-2 days after discharge from . Provided contact number for [facility].
[facility] referral completed in [facility].
[2024-12-31] MEDS: SYMBICORT 80/4.5 MCG INHALER 2 PUFF INH ×2 (13:59→19:43)
[2024-12-31] MEDS: SPIRIVA RESPIMAT 2.5 MCG 2 PUFF INH (14:00)
[2024-12-31] MEDS: CIPRO 500 MG PO (15:22)
[2024-12-31] MEDS: FLAGYL 500 MG PO (15:22)
[2024-12-31] MEDS: APRESOLINE 10 MG IV (15:49)
[2024-12-31] MEDS: TYLENOL 650 MG PO (16:29)
[2024-12-31] MEDS: ASPIR LOW (ENTERIC COATED) 81 MG PO (17:55)
[2024-12-31] MEDS: ZETIA 10 MG PO (17:55)
[2024-12-31] MEDS: REQUIP 0.5 MG PO (21:17)
[2025-01-01] VITALS (7 sets, daily range): BP systolic 143–197; BP diastolic 52–105; PULSE 58; O2SAT 95–99
[2025-01-01] MEDS: FLAGYL 500 MG PO ×3 (01:07→15:43)
[2025-01-01 07:43] LABS: Hematocrit 30.5 % (37.0-47.0); Hemoglobin 9.4 g/dL (12.0-16.0); Mean Corp Hgb Conc. 30.8 g/dL (33.0-37.0); Mean Corpuscular Volume 89.2 fL (81.0-99.0); Nucleated Red Blood Cells % 0 %; Platelet Count 213 10^3/uL (130-400); Red Cell Dist. Width 14.2 % (11.5-14.5)
[2025-01-01] MEDS: SPIRIVA RESPIMAT 2.5 MCG 2 PUFF INH (07:55)
[2025-01-01] MEDS: SYMBICORT 80/4.5 MCG INHALER 2 PUFF INH ×2 (07:56→21:20)
[2025-01-01] MEDS: PROCARDIA XL (EXTENDED RELEASE) 90 MG PO (08:10)
[2025-01-01] MEDS: PLAVIX 75 MG PO (08:10)
[2025-01-01] MEDS: COREG 12.5 MG PO ×2 (08:11→20:05)
[2025-01-01] MEDS: HEPARIN 5000 UNITS SC ×2 (08:11→20:05)
[2025-01-01] MEDS: CIPRO 500 MG PO (08:11)
[2025-01-01 08:23] LABS: Blood Urea Nitrogen 17 mg/dl (7-17); Calcium 8.9 mg/dl (8.4-10.2); Carbon Dioxide 24 mmol/L (22-30); Chloride 109 mmol/L (98-107); Estimated Creatinine Clearance 15 ml/min; Glucose 89 mg/dl (70-99); Potassium 4.2 mmol/L (3.5-5.1); Sodium 140 mmol/L (135-145); eGFR 25.72
--- NOTE | 2025-01-01 11:16 | W.PN.HOSP.TC ---
Today's Communication/Plan
-
Discharge planning
Assessment / Plan
Assessment / Plan
Gen-AAOx3, NAD
HEENT-NC, AT, anicteric, clear oral mm
Neck-supple
CV-reg, no M, +S1/S2
Lungs-clear B/L
Abd-soft, tender left abdomen, nondistended
Ext-no edema
Musculoskeletal-no cyanosis, clubbing
Skin-warm and dry
Neuro-grossly non-focal
Psych-calm, cooperative
A/P:
Acute diverticulitis-changed antibiotics since yesterday to oral Cipro and Flagyl. Seen CT scan. Continue low residue diet. Might need GI for colonoscopy but as of now family has been told that due to her age and COPD she should not have
anymore C-scope-I encouraged them to have more discussion OP in the setting of this episode of diverticulitis this time. Discussed with daughter Coco over the phone yesterday. Patient medically clear for discharge today but she feels that she
needs rehab. Discussed with briefcase sewer about patient request.
Acute diarrhea-C. difficile antigen positive but toxin negative.
Unclear if real UTI or asymptomatic bacteriuria-in any event antibiotics would cover both.
Chronic hypoxic respiratory failure on home oxygen-continue home ox
Generalized weakness -unclear if she had a syncopal event prior to admission. No obvious injuries. Orthostatics are negative. PT/OT recommend home health.
Hyperkalemia -POA, resolved.
Asymptomatic bacteriuria -urine culture 12/27 noted. No indication for antibiotics.
COPD without exacerbation -oxygen dependent, uses 5 L at home. Continue inhalers.
Essential hypertension with hypertensive urgency -nifedipine resumed this morning. Continue carvedilol. Unclear why she is on 2 beta-blockers.
Chronic anemia -hemoglobin appears at baseline.
CKD 4 -stable.
Thoracic aortic aneurysm -noted on CT scan this admission. Distal descending thoracic aorta measures 4 cm, similar to prior. Mild dilation of the abdominal aorta, similar to prior.
Asymptomatic cholelithiasis -noted on CT.
Chronic heart failure preserved EF -stable.
CAD -stable.
Hyperlipidemia -on Zetia.
Restless leg syndrome
Osteoporosis
Renal artery stenosis -s/p renal stents.
DVT prophylaxis-heparin SQ
DNR
Anticipated Discharge: Today
Subjective/Interval History
-
Date of Service: January 01, 2025
Patient feels very weak and she feels cannot manage at home. No nausea or vomiting. Less diarrhea. Abdominal discomfort but not as much as before. Afebrile
Objective Data
-
Labs:
Laboratory Results
01/01/25
06:39
WBC 5.5
Hgb 9.4 L
Hct 30.5 L
Plt Count 213 D
Sodium 140
Potassium 4.2
Chloride 109 H
Carbon Dioxide 24
BUN 17
Creatinine 1.9 H
Glucose 89
Calcium 8.9
Vital Signs:
Vital Signs
Temp Pulse Resp BP Pulse Ox
99.0 F 65 20 159/61 100
01/01/25 07:05 01/01/25 09:05 01/01/25 07:55 01/01/25 09:05 01/01/25 09:56
I&O
12/31/24 01/01/25 01/02/25
06:59 06:59 06:59
Intake Total 2009 1140 / 1140
Balance 2009 1140 / 1140
--- NOTE | 2025-01-01 13:09 | CM ---
Patient re-eval by PT
PT rec SNF
spoke with daughter Coco
options reviewed [facility], [facility], [facility] referrals entered
Will need to obtain ins auth once bed secured
PLAN: SNF, pending acceptance/bed availability when stable
[2025-01-01] MEDS: APRESOLINE 10 MG IV (15:43)
[2025-01-01] MEDS: ZETIA 10 MG PO (17:34)
[2025-01-01] MEDS: ASPIR LOW (ENTERIC COATED) 81 MG PO (17:34)
[2025-01-02] MEDS: FLAGYL 500 MG PO ×4 (00:04→23:12)
[2025-01-02 06:00] VITALS: BMI 18.7
[2025-01-02 07:30] VITALS: BP 131/78
[2025-01-02] MEDS: SYMBICORT 80/4.5 MCG INHALER 2 PUFF INH ×2 (07:35→19:42)
[2025-01-02] MEDS: SPIRIVA RESPIMAT 2.5 MCG 2 PUFF INH (07:35)
--- NOTE | 2025-01-02 09:00 | W.PN.HOSP.TC ---
Today's Communication/Plan
-
CT head. EKG and cardiac monitoring. Chest x-ray
Assessment / Plan
Assessment / Plan
Gen-AAOx3, NAD
HEENT-NC, AT, anicteric, clear oral mm
Neck-supple
CV-reg, no M, +S1/S2
Lungs-clear B/L
Abd-soft, tender left abdomen, nondistended
Ext-no edema
Musculoskeletal-no cyanosis, clubbing
Skin-warm and dry
Neuro-grossly non-focal
Psych-calm, cooperative
A/P:
Headache with nausea and dizziness and transient bradycardia-obtain twelve-lead EKG, chest x-ray, continue current beta-blockers but consider decreasing doses if bradycardia recurs or any AV block, symptomatic treatment with Compazine or Zofran and
Tylenol. Obtain CT scan of the head. Start cardiac monitoring. Repeat basic labs today. Updated daughter today, Coco. Hold on discharge and monitor for 24 more hours.
Acute diverticulitis-changed antibiotics since to oral Cipro and Flagyl. Seen CT scan. Continue low residue diet. Might need GI for colonoscopy but as of now family has been told that due to her age and COPD she should not have anymore
C-scope-I encouraged them to have more discussion OP in the setting of this episode of diverticulitis this time. manager trainee working on discharge disposition.
Acute diarrhea-C. difficile antigen positive but toxin negative.
Unclear if real UTI or asymptomatic bacteriuria-in any event antibiotics would cover both.
Chronic hypoxic respiratory failure on home oxygen-continue home ox, 5 L at home
Generalized weakness -unclear if she had a syncopal event prior to admission. No obvious injuries. Orthostatics are negative. PT/OT recommend SNF.
Hyperkalemia -POA, resolved..
Essential hypertension with hypertensive urgency -nifedipine resumed this morning. Continue carvedilol. Unclear why she is on 2 beta-blockers.
Chronic anemia -hemoglobin appears at baseline.
CKD 4 -stable.
Thoracic aortic aneurysm -noted on CT scan this admission. Distal descending thoracic aorta measures 4 cm, similar to prior. Mild dilation of the abdominal aorta, similar to prior.
Asymptomatic cholelithiasis -noted on CT.
Chronic heart failure preserved EF -stable.
CAD -stable.
Hyperlipidemia -on Zetia.
Restless leg syndrome
Osteoporosis
Renal artery stenosis -s/p renal stents.
DVT prophylaxis-heparin SQ
DNR
Time spent 37-minute
Anticipated Discharge: Within 24 hours
Subjective/Interval History
-
Date of Service: January 02, 2025
Patient complains of headache and dizziness and nausea today and some palpitations. She was transiently bradycardic.
Objective Data
-
Vital Signs:
Vital Signs
Temp Pulse Resp BP Pulse Ox
98.3 F 78 16 131/78 100
01/02/25 07:30 01/02/25 07:30 01/02/25 07:39 01/02/25 07:30 01/02/25 07:39
I&O
01/01/25 01/02/25 01/03/25
06:59 06:59 06:59
Intake Total 1140 / 1140 520 / 520
Balance 1140 / 1140 520 / 520
[2025-01-02] MEDS: PROCARDIA XL (EXTENDED RELEASE) 90 MG PO (09:04)
[2025-01-02] MEDS: CIPRO 500 MG PO (09:04)
[2025-01-02] MEDS: PLAVIX 75 MG PO (09:04)
[2025-01-02] MEDS: COREG 12.5 MG PO ×2 (09:05→20:08)
[2025-01-02] MEDS: HEPARIN 5000 UNITS SC ×2 (09:05→20:08)
--- NOTE | 2025-01-02 10:19 | CM ---
additional referrals sent after speaking with daughter Coco
Spoke with Kirsten at [facility] offered bed - daughter agreeable
CM will initiate auth with TAE LANDIS
tt hospitalist
[facility] NPI #: [id number]
DR. HOWARD MATHEW NPI #: [id number]
plan: [facility], once auth obtained
[2025-01-02] MEDS: ZOFRAN 4 MG IV (10:41)
[2025-01-02] MEDS: DILAUDID 0.5 MG IV (10:54)
--- NOTE | 2025-01-02 11:33 | CM ---
insurance [place] with [employer] p# [phone]
Shahram Lutz NPi# [id number]
Dr Gracie Dailey NPIi# [id number]
Pended auth# [id number]
[employer] Faxed for Fax#
[2025-01-02 12:00] VITALS: BP 156/62
[2025-01-02] MEDS: COMPAZINE 10 MG IV (12:47)
[2025-01-02] MEDS: OFIRMEV 100 IV (13:24)
[2025-01-02 13:29] VITALS: BMI 18.6
[2025-01-02 13:54] LABS: Hematocrit 34.3 % (37.0-47.0); Hemoglobin 10.6 g/dL (12.0-16.0); Mean Corp Hgb Conc. 30.9 g/dL (33.0-37.0); Mean Corpuscular Volume 88.2 fL (81.0-99.0); Nucleated Red Blood Cells % 0 %; Platelet Count 243 10^3/uL (130-400); Red Cell Dist. Width 14.3 % (11.5-14.5)
[2025-01-02 14:34] LABS: ALT (SGPT) 18 U/L (0-35); AST (SGOT) 21 U/L (14-36); Albumin 4.0 g/dl (3.5-5.0); Alkaline Phosphatase 89 U/L (38-126); Blood Urea Nitrogen 20 mg/dl (7-17); Calcium 9.5 mg/dl (8.4-10.2); Carbon Dioxide 24 mmol/L (22-30); Chloride 106 mmol/L (98-107); Estimated Creatinine Clearance 14 ml/min; Glucose 149 mg/dl (70-99); Magnesium 2.0 mg/dl (1.6-2.3); Potassium 4.6 mmol/L (3.5-5.1); Sodium 137 mmol/L (135-145); Total Protein 7.3 g/dl (6.3-8.2); eGFR 24.18
--- NOTE | 2025-01-02 15:52 | PTCARENOTE ---
Pt reported having nausea with dry heaving. IV Zofran given at 1041. Pt then reported having 'severe' 8/10 anterior headache. IV Dilaudid given at 1054. While RN was given Dilaudid, came into room. MD updated on pt's condition. After
administration of IV Dilaudid, while MD was present, pt reported having chest pain and dizziness 'when I open my eyes, it feels like the room is spinning'. MD verbally ordered EKG, CXR, head CT, and placement of telemetry. EKG completed and pt
placed on telemetry. Pt then went for CXR and head CT. When pt came back from radiological tests, pt reported continued nausea, Zofran ineffective. TT'amanda, Compazine ordered and given at 1247. Pt reported continued 7/10 posterior headache. MD Lepe.
Order placed for IV Acetaminophen and given at 1324. Pt noted to be sleeping. Pt reassessed at 1424 and reported decrease in nausea, and headache went down to a 5/10 on pain scale.
[2025-01-02] MEDS: PEPCID 10 MG PO (15:54)
[2025-01-02 16:00] VITALS: BP 143/52
[2025-01-02] MEDS: ASPIR LOW (ENTERIC COATED) 81 MG PO (17:26)
[2025-01-02] MEDS: ZETIA 10 MG PO (17:26)
[2025-01-02 19:00] VITALS: BP 187/77
[2025-01-02] MEDS: TYLENOL 650 MG PO (20:12)
--- NOTE | 2025-01-02 20:18 | PTCARENOTE ---
Oral care was not performed on patient because she stated that it was her preference to brush her teeth in the morning.
--- NOTE | 2025-01-02 20:43 | PTCARENOTE ---
Pt was not feeling up to brushing their teeth.
[2025-01-02] MEDS: REQUIP 0.5 MG PO (21:59)
[2025-01-02 22:45] VITALS: BP 198/62
[2025-01-02] MEDS: APRESOLINE 5 MG IV (23:11)
[2025-01-03 00:30] VITALS: BP 162/62
[2025-01-03 03:00] VITALS: BP 152/49
[2025-01-03 03:38] VITALS: BMI 18.9
[2025-01-03 07:00] VITALS: BP 133/75
[2025-01-03 07:22] LABS: Hematocrit 32.2 % (37.0-47.0); Hemoglobin 10.0 g/dL (12.0-16.0); Mean Corp Hgb Conc. 31.1 g/dL (33.0-37.0); Mean Corpuscular Volume 89.2 fL (81.0-99.0); Nucleated Red Blood Cells % 0 %; Platelet Count 244 10^3/uL (130-400); Red Cell Dist. Width 14.2 % (11.5-14.5)
[2025-01-03 07:50] LABS: Blood Urea Nitrogen 25 mg/dl (7-17); Calcium 9.2 mg/dl (8.4-10.2); Carbon Dioxide 25 mmol/L (22-30); Chloride 108 mmol/L (98-107); Estimated Creatinine Clearance 12 ml/min; Glucose 97 mg/dl (70-99); Potassium 4.3 mmol/L (3.5-5.1); Sodium 139 mmol/L (135-145); eGFR 20.45
[2025-01-03] MEDS: SPIRIVA RESPIMAT 2.5 MCG 2 PUFF INH (08:05)
[2025-01-03] MEDS: SYMBICORT 80/4.5 MCG INHALER 2 PUFF INH (08:05)
--- NOTE | 2025-01-03 08:26 | CM ---
Addendum entered by Tasia Cid 01/03/25 08:47:
PLAN: [facility]
Report # [phone]
Fax #: [phone]
Original Note:
received fax from Yann Coronado Approved for [facility]
Auth approval #: [id number]
start date 01/03/25 - 6 days
updates [phone]
LM jael Curtis at [facility] with information
await call with report/fax #'s
tt hospitalist
PLAN: [facility]
[2025-01-03] MEDS: HEPARIN 5000 UNITS SC (08:42)
[2025-01-03] MEDS: PLAVIX 75 MG PO (08:42)
[2025-01-03] MEDS: FLAGYL 500 MG PO (08:42)
[2025-01-03] MEDS: CIPRO 500 MG PO (08:42)
[2025-01-03] MEDS: COREG 12.5 MG PO (08:42)
[2025-01-03] MEDS: PROCARDIA XL (EXTENDED RELEASE) 90 MG PO (08:44)
--- NOTE | 2025-01-03 10:11 | W.PN.HOSP.TC ---
Today's Communication/Plan
-
Discharge plan
Assessment / Plan
Assessment / Plan
Gen-AAOx3, NAD
HEENT-NC, AT, anicteric, clear oral mm
Neck-supple
CV-reg, no M, +S1/S2
Lungs-clear B/L
Abd-soft, tender left abdomen, nondistended
Ext-no edema
Musculoskeletal-no cyanosis, clubbing
Skin-warm and dry
Neuro-grossly non-focal
Psych-calm, cooperative
A/P:
Headache with nausea and dizziness and transient bradycardia-improved and back to baseline now. All workup unremarkable. Discussed with daughter and updated her today on 01/03. Plan to discharge today
Prior to today:
Obtain twelve-lead EKG, chest x-ray, continue current beta-blockers but consider decreasing doses if bradycardia recurs or any AV block, symptomatic treatment with Compazine or Zofran and Tylenol. Obtain CT scan of the head. Start cardiac
monitoring. Repeat basic labs today. Updated daughter today, Coco. Hold on discharge and monitor for 24 more hours.
Acute diverticulitis-changed antibiotics since to oral Cipro and Flagyl. Seen CT scan. Continue low residue diet. Might need GI for colonoscopy but as of now family has been told that due to her age and COPD she should not have anymore
C-scope-I encouraged them to have more discussion OP in the setting of this episode of diverticulitis this time. manager convention working on discharge disposition.
Acute diarrhea-C. difficile antigen positive but toxin negative.
Unclear if real UTI or asymptomatic bacteriuria-in any event antibiotics would cover both.
Chronic hypoxic respiratory failure on home oxygen-continue home ox, 5 L at home
Generalized weakness -unclear if she had a syncopal event prior to admission. No obvious injuries. Orthostatics are negative. PT/OT recommend SNF.
Hyperkalemia -POA, resolved..
Essential hypertension with hypertensive urgency -nifedipine resumed this morning. Continue carvedilol. Unclear why she is on 2 beta-blockers.
Chronic anemia -hemoglobin appears at baseline.
CKD 4 -stable.
Thoracic aortic aneurysm -noted on CT scan this admission. Distal descending thoracic aorta measures 4 cm, similar to prior. Mild dilation of the abdominal aorta, similar to prior.
Asymptomatic cholelithiasis -noted on CT.
Chronic heart failure preserved EF -stable.
CAD -stable.
Hyperlipidemia -on Zetia.
Restless leg syndrome
Osteoporosis
Renal artery stenosis -s/p renal stents.
DVT prophylaxis-heparin SQ
DNR
Anticipated Discharge: Today
Subjective/Interval History
-
Date of Service: January 03, 2025
Patient feels well today
Objective Data
-
Labs:
Laboratory Results
01/03/25
06:59
WBC 6.2
Hgb 10.0 L
Hct 32.2 L
Plt Count 244
Sodium 139
Potassium 4.3
Chloride 108 H
Carbon Dioxide 25
BUN 25 H
Creatinine 2.3 H
Glucose 97
Calcium 9.2
Vital Signs:
Vital Signs
Temp Pulse Resp BP Pulse Ox
98.1 F 76 14 133/75 99
01/03/25 07:00 01/03/25 08:16 01/03/25 08:16 01/03/25 07:00 01/03/25 08:16
I&O
01/02/25 01/03/25 01/04/25
06:59 06:59 06:59
Intake Total 520 / 520 620 / 620
Balance 520 / 520 620 / 620
--- NOTE | 2025-01-03 10:15 | W.DCSUMMARY ---
Discharge Summary
Discharge Data
Date of Admission: 12/27/24
Date of Discharge: 01/03/25
Total time spent discharging patient (in min): 35
-
Pending Results: No
Hospital Course
Patient 84 years old female with history of chronic hypoxic respiratory failure on home oxygen, hypertension, multiple other medical problems, came into the hospital with acute diverticulitis and a probable syncope event. Patient was treated with
broad-spectrum IV antibiotics and bowel rest. Patient had stool C. difficile antigen positive and toxin negative indicating colonization but no active disease. She also had E. coli growing in her urine cultures. Patient had episodes of diarrhea
but then improved. Patient also had episode of dizziness and headache and nausea likely vertigo and improved as well. Patient had transient mild sinus bradycardia likely vasovagal and also improved and tolerated beta-blockers without any problems.
Otherwise, patient tolerated advancing diet and change antibiotics to oral without any issues. Patient feels close back to her baseline except for generalized weakness for which PT and OT recommending skilled rehab. She is going to skilled rehab
today in relatively stable condition.
Discharge duration: 35 minutes
Discharge Plan
-
Patient Disposition: Skilled Nursing/SNF
Discharge Diagnosis/Procedures: Acute diverticulitis. Acute diarrhea. Urinary tract infection. Chronic hypoxic respiratory failure with chronic obstructive pulmonary disease on home oxygen. Chronic kidney disease stage IV. Chronic diastolic
congestive heart failure. Chronic anemia.
Diet: Low Residue
Additional Diets: Low residue for 2 weeks and after that high-fiber diet.
Activity: As tolerated
Blood Work: Please PCP to order CBC, BMP within 1 week
Referrals:
Barb Aguirre MD [Family Provider, Internal Medicine] - in less than 1 week
Prescriptions:
New
metronidazole 500 mg Tablet
500 mg PO Q8 10 Days Qty: 30 0RF
ciprofloxacin HCl 500 mg Tablet
500 mg PO DAILY 10 Days Qty: 10 0RF
Continued
alendronate [Fosamax] 70 mg Tablet
70 mg PO MO
clopidogrel [Plavix] 75 mg Tablet
75 mg PO DAILY
aspirin 81 mg Tablet,Delayed Release (Dr/Ec)
81 mg PO QPM
ropinirole 0.5 mg Tablet
0.5 mg PO HSPRN PRN (Reason: RLS)
ezetimibe [Zetia] 10 mg Tablet
10 mg PO QPM
Trelegy Ellipta 100-62.5-25 mcg Blister With Device
1 inh INHALATION DAILY
carvedilol 12.5 mg Tablet
12.5 mg PO BID
nifedipine 90 mg Tablet Extended Release
90 mg PO DAILY
metoprolol succinate 25 mg Tablet Extended Release 24 Hr
25 mg PO DAILY
Rx Instructions:
at HS
Discharge Orders:
Discharge Patient (As Directed); Ordered 01/03/25
Ordered By: Shiva Garces
Discharge Date and Time
Discharge Date/Time: 01/03/25 16:04
Print Language: EQUATORIAL GUINEAN
[2025-01-03 11:00] VITALS: BP 108/48
[2025-01-03 14:46] VITALS: BP 130/64
== END 2025-01-03 16:04 | DRG 392 ==
LOC: 3 WEST ACU 22:06
PROVIDERS: Hospitalist; Student in an Organized Health Care Education/Training Program; ADMITTING PHYSICIAN Hospitalist; ATTENDING PHYSICIAN Hospitalist; EMERGENCY PHYSICIAN Emergency Medicine; FAMILY PHYSICIAN Internal Medicine
DX: K57.32 Diverticulitis of large intestine without perforation or abscess without bleeding (principal); I50.32 Chronic diastolic (congestive) heart failure; N18.4 Chronic kidney disease, stage 4 (severe); I13.0 Hypertensive heart and chronic kidney disease with heart failure and stage 1 through stage 4 chronic kidney disease, or unspecified chronic kidney disease; J96.11 Chronic respiratory failure with hypoxia; N39.0 Urinary tract infection, site not specified; I25.10 Atherosclerotic heart disease of native coronary artery without angina pectoris; J44.9 Chronic obstructive pulmonary disease, unspecified; E78.00 Pure hypercholesterolemia, unspecified; D63.1 Anemia in chronic kidney disease; I71.20 Thoracic aortic aneurysm, without rupture, unspecified; K80.20 Calculus of gallbladder without cholecystitis without obstruction; I16.0 Hypertensive urgency; E78.5 Hyperlipidemia, unspecified; R19.7 Diarrhea, unspecified; G25.81 Restless legs syndrome; M81.0 Age-related osteoporosis without current pathological fracture; E87.5 Hyperkalemia; Z66 Do not resuscitate; Z99.81 Dependence on supplemental oxygen; Z90.710 Acquired absence of both cervix and uterus; Z87.891 Personal history of nicotine dependence; Z79.82 Long term (current) use of aspirin; Z79.02 Long term (current) use of antithrombotics/antiplatelets; Z79.51 Long term (current) use of inhaled steroids; Z79.83 Long term (current) use of bisphosphonates
CPT/HCPCS: 70450; 71046; 74176; 80048; 80053; 81003; 81015; 83690; 83735; 84100; 84443; 84484; 85025; 85027; 87077; 87086; 87186; 87324; 87449; 93005; 94640; 96361; 96365; 96375; 96376; 97116; 97163; 97167; 97530; 97535; 99285